=== PATIENT | female | born 1950 | race Caucasian/White ===

== ENCOUNTER 2017-02-07 07:08 | Day surgery (SDC) | payer BC ==
[2017-02-06 13:25] VITALS: BMI 75.8
[2017-02-07 08:28] LABS: #Eosinphils 0.1 thou/uL (0.0-0.7); #Lymphocytes 2.7 thou/uL (1.20-3.40); #Monocytes 0.9 thou/uL (0.11-0.59); #Neutrophils 4.7 thou/uL (1.40-6.50); %Basophils 0.5 % (0.0-1.0); %Eosinophils 0.9 % (0.0-10.0); %Lymphocytes 31.7 % (21.0-51.0); %Monocytes 11.2 % (0.0-10.0); Hematocrit 53.9 % (36.0-47.0); Red Blood Cell (RBC) Count 5.47 mill/uL (4.20-5.40); White Blood Cell (WBC) Count 8.5 thou/uL (4.8-10.8)
[2017-02-07 08:32] LABS: PTT 25.8 SEC (22.9-36.1)
[2017-02-07 08:33] LABS: Prothrombin Time 16.2 SEC (12.0-14.7)
[2017-02-07] MEDS ORDERED: Diprivan 40 ML ONE (08:36)
[2017-02-07 08:49] LABS: ALT (SGPT) 25 U/L (8-55); AST (SGOT) 31 U/L (5-34); Alkaline Phosphatase 67 U/L (40-150); Anion Gap 18 mmol/L (10-20); BUN (Urea Nitrogen) 25 mg/dL (9.8-20.1); Bilirubin, Total 1.4 mg/dL (0.2-1.2); Calc. Creatinine Clearance 168 mL/min (70-130); Carbon Dioxide 25 mmol/L (23-31); Chloride 101 mmol/L (98-107); Estimated GFR-MDRD 48; Globulin 3.8 g/dL (2.4-3.5); Protein, Total 7.8 g/dL (6.0-8.3)
[2017-02-07] MEDS ORDERED: Propofol 200 MG/20 ML VIAL ONE (09:26)
--- NOTE | 2017-02-07 21:07 | EKG ---
Test Reason : PREOP SUE Blood Pressure : / mmHG Vent. Rate : 088 BPM Atrial Rate : 394 BPM P-R Int : 000 ms QRS Dur : 170 ms QT Int : 398 ms P-R-T Axes : 000 -71 000 degrees QTc Int : 481 ms Atrial fibrillation with premature ventricular or aberrantly conducted complexes Right bundle branch block Left anterior fascicular block Bifascicular block T wave abnormality, consider lateral ischemia or digitalis effect Abnormal ECG When compared with ECG of 07-MAR-2013 12:38, Atrial fibrillation has replaced Sinus rhythm Left anterior fascicular block is now Present QT has lengthened Confirmed by GEORGE CANNON, DR. Pierre ([id number]) on 02/07/2017 9:07:27 PM Referred By: Salty ARREOLA Confirmed By:DR. Gabby VAZQUEZ MD
== END 2017-02-07 11:10 | disposition home or self-care (01) ==
LOC: CCL 07:08
PROVIDERS: ATTEND Internal Medicine
DX: I48.1 Persistent atrial fibrillation (principal); I10 Essential (primary) hypertension; E78.00 Pure hypercholesterolemia, unspecified; Z88.0 Allergy status to penicillin; Z88.7 Allergy status to serum and vaccine; Z88.8 Allergy status to other drugs, medicaments and biological substances
CPT/HCPCS: 80053; 84443; 85025; 85610; 85730; 92960; 93005; 93010; 93312; J2704

== ENCOUNTER 2017-05-05 09:35 | Outpatient (CLI) | payer OTHER | END 2017-05-05 09:36 | disposition home or self-care (01) | LOC: DTY/OP 09:35 | PROVIDERS: ATTEND Specialist | DX: Z01.818 Encounter for other preprocedural examination (principal); E66.01 Morbid (severe) obesity due to excess calories | CPT/HCPCS: 97802 ==

== ENCOUNTER 2017-08-09 10:20 | Outpatient (CLI) | payer MEDICARE, BC ==
--- NOTE | 2017-08-09 19:39 | HP ---
DATE OF SERVICE: 08/09/2017 HISTORY OF PRESENT ILLNESS: Ms. Syeda Hugo is a very pleasant 67-year-old who presents to the [facility] for evaluation of a wound of the right lateral chest. The patient states that the wound harrell s been present for approximately 3 months. She states that the wound is not as painful today as in t he past. She states that the wound improves intermittently, but has never healed completely. She st ates that she has utilized lidocaine steroid/antifungal preparation and Neosporin at various times fo r treatment of her right lateral chest wound. The patient reports a rash in the intertriginous regio n of her right and left groins. She states that this rash as opposed to the wound of her right later al chest resolves completely at times. PAST MEDICAL HISTORY: 1. Hypertension. 2. Arthritis. 3. History of diverticulitis. 4. Atrial fibrillation. PAST SURGICAL HISTORY: 1. Appendectomy. 2. D&C for postmenopausal bleeding. 3. Cholecystectomy. MEDICATIONS: 1. Lisinopril/HCTZ. 2. Aspirin 81 mg. 3. Fish oil. 4. Coenzyme Q10. 5. Multivitamin. 6. Amiodarone. 7. Metoprolol. 8. Xarelto. 9. Levothyroxine. ALLERGIES: PENICILLIN, TETANUS, STATIN. SOCIAL HISTORY: Negative for tobacco or ETOH use. FAMILY HISTORY: Significant for diabetes mellitus. The patient states that her mother, 2 brothers a nd 1 sister were all diagnosed with diabetes mellitus. Family history is also significant for traore ry artery disease. The patient states that her mother and father were both diagnosed with coronary a rtery disease. PHYSICAL EXAMINATION: VITAL SIGNS: Temperature 97.5, pulse 62, respirations 18, blood pressure 132/82. GENERAL: A 67-year-old female sitting on chair in examination room in no acute distress. HEENT: Normocephalic. NECK: No nuchal rigidity. CHEST: Clear to auscultation. A wound of the right lateral chest is present which measures approxim ately 1.9 x 0.9 cm. Granulation tissue is present within the wound margins. Nonviable tissue presen t within the wound margins was debrided with an excisional full-thickness debridement. No purulent d rainage is associated with the wound. No erythema of the skin surrounding the wound is present. No maceration of the skin of the periwound is noted. CARDIAC: Regular rate and rhythm. ABDOMEN: Soft. EXTREMITIES: No clubbing or cyanosis. NEUROLOGIC: Grossly nonfocal. ASSESSMENT AND PLAN: 1. Right lateral chest wound. The wound appears to be possibly secondary to shear stress. The ang ent states that it is possible that the wound may have developed from shear stress from her bra. Mark ssing changes of Arglaes powder followed by bordered gauze will be initiated today. These dressing c hanges are to be performed on a daily basis after cleansing and irrigation. No antibiotics will be p rescribed today based upon the appearance of the wound. I will see Ms. Hugo again in two weeks. Th e patient understands and is in agreement with the preceding treatment plan. 2. Hypertension. 3. Arthritis. 4. History of diverticulitis. 5. Atrial fibrillation.
== END 2017-08-09 10:21 | disposition home or self-care (01) ==
LOC: WCC 10:20
PROVIDERS: ATTEND Family Medicine
DX: S21.90XD Unspecified open wound of unspecified part of thorax, subsequent encounter (principal); I10 Essential (primary) hypertension; M19.90 Unspecified osteoarthritis, unspecified site; I48.91 Unspecified atrial fibrillation; Z87.19 Personal history of other diseases of the digestive system
CPT/HCPCS: 11042; 99202; G0463

== ENCOUNTER 2019-06-27 08:47 | Inpatient (IN) | payer MEDICARE, BC ==
[2019-06-27 09:13] LABS: #Lymphocytes 1.8 thou/uL (1.20-3.40); #Monocytes 1.6 thou/uL (0.11-0.59); %Basophils 0.1 % (0.0-1.0); %Eosinophils 0.3 % (0.0-10.0); %Lymphocytes 14.7 % (21.0-51.0); %Monocytes 12.5 % (0.0-10.0); %Neutrophils 72.4 % (42.0-75.0); Hemoglobin 17.3 g/dL (12.0-16.0); Mean Corpuscular HGB CONC 33.1 g/dL (32.0-36.0); Mean Corpuscular Volume 93.6 fL (78.0-98.0); Mean Platelet Volume 7.4 fL (7.4-10.4); Platelet Count 420 thou/uL (130-400); RBC Distribution Width 13.9 % (11.5-14.5); White Blood Cell (WBC) Count 12.5 thou/uL (4.8-10.8)
[2019-06-27] MEDS ORDERED: cefTRIAXone\\ROCEPHIN 2 GM VIAL ONE (09:25)
[2019-06-27 09:39] LABS: ALT (SGPT) 11 U/L (8-55); AST (SGOT) 29 U/L (5-34); Albumin 3.2 g/dL (3.4-4.8); Alkaline Phosphatase 91 U/L (40-110); Anion Gap 19 mmol/L (10-20); BUN (Urea Nitrogen) 36 mg/dL (9.8-20.1); Bilirubin, Total 1.9 mg/dL (0.2-1.2); Calc. Creatinine Clearance 0 mL/min (70-130); Calcium 10.6 mg/dL (7.8-10.44); Carbon Dioxide 20 mmol/L (23-31); Chloride 93 mmol/L (98-107); Estimated GFR-MDRD 52; Globulin 3.8 g/dL (2.4-3.5); Glucose 100 mg/dL (80-115); Lipase 15 U/L (8-78); Magnesium 2.3 mg/dL (1.6-2.6); Potassium 6.1 mmol/L (3.5-5.1); Sodium 126 mmol/L (136-145)
--- NOTE | 2019-06-27 10:10 | RAD ---
EXAM: XR Chest 1 View Portable PROVIDED CLINICAL HISTORY: Altered mental status COMPARISON: None FINDINGS: Evaluation is limited by patient body habitus. The cardiac silhouette appears enlarged. Left basilar pleural and/or parenchymal opacity is suspected. Pulmonary vascular congestion is noted. Right lung appears free of focal opacity. No evidence for pneumothorax. IMPRESSION: 1. Cardiomegaly. 2. Left basilar pleural and/or parenchymal opacity is suspected. Evaluation is limited by patient hab itus.
[2019-06-27 10:26] LABS: Bilirubin 1+ (Negative); Blood, Urine Trace (Negative); Clarity Turbid (Clear); Glucose, Urine (Dipstick) Normal (Negative); Leukocyte Negative Leu/uL (Negative); Nitrite Negative (Negative); Protein, Urine (Dipstick) 50 mg/dL (Neg-Trace); RBC/HPF 0-3 HPF (0-3); Squamous Epithelial 0-3 HPF (0-3); WBC/HPF 0-3 HPF (0-3)
[2019-06-27 10:43] LABS: Bacteria/HPF None Seen HPF (None Seen)
[2019-06-27] MEDS ORDERED: Piperacillin/Tazobactam 4.5 GM VIAL ONE (10:53)
[2019-06-27] MEDS ORDERED: Calcium Chloride 1 GM/10 ML Abboject SYRINGE ONE (10:54)
[2019-06-27] MEDS ORDERED: Sodium Bicarb 50 MEQ/50 ML VIAL ONE ×2 (10:54→10:58)
[2019-06-27] MEDS ORDERED: Dextrose 50% Abboject 50 ML SYRINGE ONE ×2 (10:54→13:25)
[2019-06-27] MEDS ORDERED: Insulin Regular 300 UNITS/3 ML VIAL ONE ×2 (10:54→13:25)
[2019-06-27] MEDS ORDERED: Diltiazem HCl 125 MG, Admixture Fee 1 EACH in Sodium Chloride 0.9% 100 ML IVPB SCH (12:00)
[2019-06-27] MEDS ORDERED: Diltiazem 125 MG/25 ML ONE (12:19)
[2019-06-27 12:51] LABS: Lactic Acid 5.6 mmol/L (0.5-2.2)
[2019-06-27 13:10] LABS: Anion Gap 20 mmol/L (10-20); BUN (Urea Nitrogen) 36 mg/dL (9.8-20.1); Calc. Creatinine Clearance 0 mL/min (70-130); Calcium 9.8 mg/dL (7.8-10.44); Carbon Dioxide 13 mmol/L (23-31); Chloride 103 mmol/L (98-107); Estimated GFR-MDRD 53; Glucose 80 mg/dL (80-115); Sodium 129 mmol/L (136-145)
[2019-06-27 13:16] LABS: Potassium 6.9 mmol/L (3.5-5.1)
[2019-06-27] MEDS ORDERED: Ondansetron PF 4 MG/2 ML Vial ONE (13:25)
[2019-06-27] MEDS ORDERED: Norepinephrine 8 MG in Dextrose 5% in Water 242 ML IVPB PRN (14:27)
[2019-06-27] MEDS ORDERED: Norepinephrine 4 MG/4 ML VIAL ONE (14:31)
--- NOTE | 2019-06-27 15:10 | RAD ---
CHEST 1 VIEW: Date: 06/27/2019 INDICATION: Central line placement. COMPARISON: Prior study dated 06/27/2019 at 0950 hours. FINDINGS: The patient is heavily rotated to the left, slightly limiting exam. There is a new right IJ central v enous catheter projecting in the region of the cavoatrial junction. Pacer pad overlies the lower cent ral chest. There is worsening opacity in the right lower lobe, suspicious for worsening pneumonia. Th ere is moderate left-sided pleural parenchymal which persists and which may reflect effusion with lef t basilar pneumonia. No definite pneumothorax is evident with limitations to exam. IMPRESSION: 1. Worsening right lower lobe air space opacity suspicious for worsening pneumonia. 2. Persistent moderate left pleural parenchymal opacity which may reflect a component of left lower lobe pneumonia and left-sided pleural effusion. 3. New right IJ central venous catheter. POS: BH
[2019-06-27] MEDS ORDERED: Amiodarone 450 MG, Admixture Fee 1 EACH in Dextrose 5% in Water 250 ML IVPB SCH (15:15)
[2019-06-27] MEDS ORDERED: Tamsulosin HCl 0.4 MG CAP PO SCH (16:15)
--- NOTE | 2019-06-27 16:24 | ULT ---
RENAL ULTRASOUND: 06/27/19 COMPARISON: CT abdomen/pelvis 07/10/12. HISTORY: Left sided abdominal pain and hematuria. TECHNIQUE: Multiplanar barnett scale and color Doppler images were obtained in a renal ultrasound. FINDINGS: This exam is limited secondary to patient's large body habitus. The kidneys are difficult to visuali ze. No obvious hydronephrosis is seen in either kidney. The kidneys measure 8.1 and 9.7 cm in length on the right and left, respectively. The bladder is not seen as it is decompressed by a Cevallos cathete r. In the left lower quadrant of the abdominal wall, there is a mass-like region. This measures 10.6 cm in greatest dimension and is consistent with the findings seen on prior CT. IMPRESSION: 1. No obvious renal abnormality. 2. Superficial mass in the subcutaneous tissues of the lower abdominal wall. POS: EAA
--- NOTE | 2019-06-27 17:08 | PDOC.HHP ---
Hospitalist HPI - History of Present Illness vomiting, blood in urine History of Present Illness: 69yo morbidly obese F w/ MHx of diverticulitis, abdominal hernia repair w/ mesh placement (approximately 10 years ago per patient), atrial fibrillation (on amiodarone and xarelto; 2 failed cardioversions in 2017), perforated diverticulitis (2012, treated medically), and chronic constipation presents for vomiting and hematuria for the past two weeks. Two weeks ago, patient developed vomiting that progressively worsened in frequency, associated with blood in her urine and abdominal pain, mostly in her left lower quadrant. She couldn't keep anything down including liquids, and became progressively drowsier so called EMS and was brought to the ED. On encounter, lying in bed and appears drowsy but no apparent distress. Denies chills, fever, headache, change in vision, neck stiffness, syncope, presyncope, chest pain, palpitations, pleuritic pain, cough, sputum production, diarrhea ( though endorses more frequent bowel movements), constipation, dysuria, increased urinary frequency (endorses some reduction in urine frequency), hematochezia, melena, hematemesis ED Course: In the ED, found to be atrial fibrillation with RVR, hyperkalemic, and hypotensive. Attempted diltiazem but remained hypotensive. Consulted Dr. Souza who started amiodarone, and started noreepinephrine. Repeat BMP showed K 6.9, so started her on treatment to reduce potassium levels. Was seen by cardiology who started on amiodarone drip and surgery to evaluate for surgical indication, which she did not have. She was admitted to the ICU. Hospitalist ROS - Review of Systems Constitutional: reports: malaise. denies: fever, chills, sweats, weakness Eyes: denies: vision change ENT: denies: ear pain, ear discharge, nose congestion, mouth swelling, throat pain, throat swelling Respiratory: denies: cough, dry, shortness of breath, hemoptysis, pleuritic pain , sputum, wheezing Cardiovascular: reports: edema. denies: chest pain, palpitations, orthopnea, paroxysmal noc. dyspnea, light headedness Gastrointestinal: reports: nausea, vomiting, abdominal pain. denies: diarrhea ( however, more frequent bowels (1-2 daily) than her usual), constipation, melena , hematochezia Genitourinary: reports: hematuria, retention. denies: dysuria, frequency, incontinence Musculoskeletal: denies: neck pain, shoulder pain, arm pain, back pain Hospitalist History - Past Medical History Cardiac: reports: AFIB, HTN. denies: [facility] Pulmonary: denies: asthma, CVA/TIA/stroke, COPD, heart attack Gastrointestinal: reports: Constipation, Diverticulosis. denies: GI bleed, Gastritis, Peptic ulcer disease Heme/Onc: denies: Anemia NOS Hepatobiliary: denies: Cirrhosis Rheumatologic: denies: Vasculitis ENT: denies: Sinusitis Renal/: reports: Hematuria. denies: Chronic renal insuff Endocrine: reports: Diabetes - Past Surgical History Other Surgical History: appendectomy, cholecystectomy, I&D for abnormal uterine bleeding - Family History Family History: reports: arthritis, diabetes mellitus - Social History Smoking Status: Never smoker Alcohol: reports: None Drugs: reports: none Living Situation: With Family Activity level: bed bound (for at least the past two years) - Exam General Appearance: awake alert General - other findings: mild ditress Eye: PERRL, anicteric sclera ENT: normocephalic atraumatic, dry oral mucosa Neck: no JVD Neck - other findings: R IJ central line in place (new) Heart: no murmur, no gallops, no rubs, irregular Heart - other findings: HR 150s-160s, atrial fibrillation on tele Respiratory: CTAB, no wheezes, no rales, no ronchi Gastrointestinal - other findings: diffusely tender, mostly left costophrenic, LLQ, and epigastric; bettencourt plac Extremities: 1+ LE edema Skin - other findings: intertriginous erythema and warmth left stomach, under breasts Psychiatric: normal affect, normal behavior, A&O x 3 Hospitalist Results - Labs Result Diagrams: 06/27/19 17:56 06/27/19 17:02 Lab results: WBC 12.5 thou/uL (4.8-10.8) H 06/27/19 09:02 Hgb 17.3 g/dL (12.0-16.0) H 06/27/19 09:02 Hct 52.4 % (36.0-47.0) H 06/27/19 09:02 MCV 93.6 fL (78.0-98.0) 06/27/19 09:02 Plt Count 420 thou/uL (130-400) H 06/27/19 09:02 Neutrophils % 72.4 % (42.0-75.0) 06/27/19 09:02 Sodium 129 mmol/L (136-145) L 06/27/19 12:46 Potassium 6.9 mmol/L (3.5-5.1) H* 06/27/19 12:46 Chloride 103 mmol/L (98-107) 06/27/19 12:46 Carbon Dioxide 13 mmol/L (23-31) L 06/27/19 12:46 BUN 36 mg/dL (9.8-20.1) H 06/27/19 12:46 Creatinine 1.03 mg/dL (0.6-1.1) 06/27/19 12:46 Glucose 80 mg/dL (80-115) 06/27/19 12:46 Lactic Acid 5.6 mmol/L (0.5-2.2) H* 06/27/19 12:10 Calcium 9.8 mg/dL (7.8-10.44) 06/27/19 12:46 Total Bilirubin 1.9 mg/dL (0.2-1.2) H 06/27/19 09:02 AST 29 U/L (5-34) 06/27/19 09:02 ALT 11 U/L (8-55) 06/27/19 09:02 Alkaline Phosphatase 91 U/L (40-110) 06/27/19 09:02 Serum Total Protein 7.0 g/dL (6.0-8.3) 06/27/19 09:02 Albumin 3.2 g/dL (3.4-4.8) L 06/27/19 09:02 Lipase 15 U/L (8-78) 06/27/19 09:02 Urine Ketones Negative mg/dL (Negative) 06/27/19 09:45 Urine Blood Trace (Negative) A 06/27/19 09:45 Urine Nitrite Negative (Negative) 06/27/19 09:45 Ur Leukocyte Esterase Negative Heather/uL (Negative) 06/27/19 09:45 Urine RBC 0-3 HPF (0-3) 06/27/19 09:45 Urine WBC 0-3 HPF (0-3) 06/27/19 09:45 Ur Squamous Epith Cells 0-3 HPF (0-3) 06/27/19 09:45 Urine Bacteria None Seen HPF (None Seen) 06/27/19 09:45 - EKG Interpretation EKG: atrial fibrillation with aberrant ventricular conduction Hospitalist H&P A/P - Problem (1) Septic shock Code(s): A41.9 - SEPSIS, UNSPECIFIED ORGANISM; R65.21 - SEVERE SEPSIS WITH SEPTIC SHOCK Status: Acute Assessment and Plan: qSOFA 2/3 possible etiologies - infected diverticulitis, perforated diverticulitis, pneumonia, embolic or thrombotic ischemic colitis (has been off anticoagulation for the past 2 weeks due to reduced oral intake), complicated UTI, infected abdominal mesh UA showing mild nonglemrulous sterile hematuria CXR showing lactate >5 patient currently SBP 100s on levophed CT cannot be done because of body habitus surgery evaluated and deemed patient to not be surgical candidate -NPO -vanc and zosyn 150cc NS w/ D5W repeat AXR in AM (2) Atrial fibrillation with RVR Code(s): I48.91 - UNSPECIFIED ATRIAL FIBRILLATION Status: Chronic Assessment and Plan: [persistent per EMR; 2 failed cardioversion attempts several years ago Tele showing atrial fibrillation with aberrant conduction -off anticoagulation for the past 2 weeks due to PO intolerance per cardiology, started on amiodarone drip started lovenox considering patient HgB high and has no signs of active infection, mild hematuria in UA possibly after bettencourt insertion; will request cardiology to advice regarding anticoagulation correct potassium (3) Acute hyperkalemia Code(s): E87.5 - HYPERKALEMIA Status: Acute Assessment and Plan: likely due to sepsis resulting in lactic acidosis received treatment in ED but hyperkalemia worsened most recently 6.9; received addiotional treatment -check bmp q4h -provide insulin/d5w, albuterol, bicarb -K should improve as acidosis improves; otherwise may require emergent hemodialysis (4) Intertriginous candidiasis Code(s): B37.2 - CANDIDIASIS OF SKIN AND NAIL Status: Acute Assessment and Plan: topical antifungal - Plan Plan: disposition/PPx -full code per patient; contacted family and updated them regarding patient's condition -GI PPx: no indication -DVT PPx: on lovenox for persistent atrial fibrillation attempted to reach both (surrogate) and daughter. left voice message for . It took 1 hour to care for this patient.
[2019-06-27] MEDS ORDERED: HumaLOG 300 UNITS/3 ML VIAL SC PRN (17:17)
[2019-06-27] MEDS ORDERED: CCU Electrolyte Replacement 1 EACH IVPB ONE (17:17)
[2019-06-27] MEDS ORDERED: Norepinephrine 8 MG/0.9% NS 250 ML IVPB PRN (17:17)
[2019-06-27] MEDS ORDERED: Dextrose 5% in Water 1,000 ML IV PRN (17:17)
[2019-06-27] MEDS ORDERED: Dextrose 50% Abboject 50 ML SYRINGE SLOW IVP PRN (17:17)
[2019-06-27] MEDS ORDERED: Potassium Phosphate 12 MMOL in Sodium Chloride 0.9% 250 ML 250 ML IV PRN (17:30)
[2019-06-27] MEDS ORDERED: PHOS-NAK 1 PKT PACK PO PRN ×2 (17:30)
[2019-06-27] MEDS ORDERED: Potassium Phosphate 9 MMOL in Sodium Chloride 0.9% 100 ML IVPB PRN (17:30)
[2019-06-27] MEDS ORDERED: Magnesium 2 GM/50 ML 2 GM in Premix Bag 1 BAG IVPB PRN (17:30)
[2019-06-27] MEDS ORDERED: Potassium Chloride 20 MEQ TAB PO PRN (17:30)
[2019-06-27] MEDS ORDERED: Magnesium Oxide 400 MG TAB PO PRN ×2 (17:30)
[2019-06-27] MEDS ORDERED: Potassium Chloride 40 MEQ in Sodium Chloride 0.9% 250 ML 250 ML IVPB PRN (17:30)
[2019-06-27] MEDS ORDERED: CCU ELECTROLYTE REPLACEMENT PROTOCOL FS PRN (17:30)
[2019-06-27] MEDS ORDERED: Potassium Chloride 40 MEQ in Premix Bag 1 BAG IVPB PRN (17:30)
[2019-06-27] MEDS ORDERED: Potassium Phosphate 15 MMOL in Sodium Chloride 0.9% 250 ML 250 ML IV PRN (17:30)
--- NOTE | 2019-06-27 17:34 | CON ---
DATE OF CONSULTATION: 06/27/2019 REASON FOR CONSULTATION: Atrial fibrillation with RVR. PRIMARY DRESSING ROOM ATTENDANT: Clif Luna DO. HISTORY OF PRESENT ILLNESS: Ms. Hugo is a very pleasant 69-year-old white female, who is mostly bed ridden, comes to the hospital for worsening nausea, vomiting, and diarrhea. For the last 2 weeks, she has had nausea, vomiting, diarrhea, unable to hold anything down. She states that things have done a little bit worse, so she decided to come in for evaluation. She was in atrial fibrillation with RVR. She has a history of atrial fibrillation, what appears to be chronic atrial fibrillation. She has been on anticoagulation for this. She was started on diltiazem drip, made her heart rate, which is in the 170s down to the 120s and 130s. However, she became hypotensive, so diltiazem was stopped and I was consulted. I asked them to start an amiodarone drip which she has been on for about 30 minutes now. Her heart rate remains in the 120s to 140s, but her blood pressure is back up to the low 100s. She was also started on Levophed for her hypotension. She was given lots of fluid as well. Ms. Hugo denies any shortness of breath. Her only complaint is the nausea, vomiting, and diarrhea she has been having. PAST MEDICAL HISTORY: 1. Atrial fibrillation which appears to be chronic. 2. Hypertension. 3. Osteoarthritis. 4. History of diverticulitis. 5. History of right lateral chest wound. SURGICAL HISTORY: 1. Hernia repair with mesh. 2. Cholecystectomy. 3. Appendectomy. SOCIAL HISTORY: No alcohol, tobacco, or drugs. Lives with daughter. OUTPATIENT MEDICATIONS: She has not been taking anything for the last 2 to 3 weeks. They will get medication list to have updated. ALLERGIES: 1. PENICILLIN. 2. STATIN DRUGS. 3. TETANUS TOXOID. REVIEW OF SYSTEMS: A 12-point review of systems was done and was all negative unless stated in the history of present illness. PHYSICAL EXAMINATION: VITAL SIGNS: Temperature 97.2, pulse 140, respiratory rate 22, saturating 98% on 2 L nasal cannula. GENERAL: Awake, alert, oriented x3, in no distress. HEENT: Normocephalic and atraumatic. NECK: Supple. LUNGS: Have reduced breath sounds. ABDOMEN: Prominent. CARDIOVASCULAR: Irregularly irregular heart rate in the 140s, difficult to hear any murmurs with distant heart sounds due to body habitus. EXTREMITIES: Trace edema. SKIN: Warm and dry. LABORATORY DATA: Laboratory work was reviewed. CBC with a white count of 12, hemoglobin of 17, hematocrit of 52, platelet count of 120. Chemistry; sodium was 126, up to 129 with IV fluids. Potassium was 6.1 on arrival up to 6.9. Anion gap of 20, BUN of 36, creatinine 1.03, GFR 53. Lactic acid is 5.6. TSH was 5.6, albumin of 3.2. UA with trace blood, 50 protein, turbid, 1+ bilirubin, 4+ urobilinogen, 2+ crystals, 11 to 20 hyaline cast. No bacteria. Chest x-ray, possible right lower lobe pneumonia, may be aspiration. ASSESSMENT: 1. Atrial fibrillation with rapid ventricular response. 2. Wide-complex QRS, possibly right bundle branch block, underlying versus QRS widening due to hyperkalemia. 3. Hyperkalemia, up to 6.8 now. Despite therapy in the ER. PLAN: 1. Aggressive reduction in potassium. She already received some doses of bicarbonate and calcium. We will ask that the potassium be repeated stat to make sure that this is not the reason why her QRS look so wide. 2. Continue amiodarone drip for now. We will do digoxin IV boluses if her heart rate remains too elevated. 3. Echocardiogram to be done. 4. To be admitted to the ICU. 5. Continue pressor support. 6. Thank you for letting us to participate in the care of your patient. We will follow. 45 minutes of critical care time. Job ID: [id number]
--- NOTE | 2019-06-27 17:37 | RAD ---
Radiograph abdomen one view: HISTORY: 69-year-old female with sepsis, left abdominal pain, and hematuria FINDINGS: There is a paucity of small bowel gas, almost complete absence. There is a small amount of gas in non distended splenic flexure and rectosigmoid colon. Moderate amount of colonic stool in the rectum. Surgical clips in upper abdomen. Patient is rotated to the left on all images. IMPRESSION: Almost complete lack of small bowel gas: Cannot evaluate small bowel.
[2019-06-27 17:43] LABS: Anion Gap 16 mmol/L (10-20); BUN (Urea Nitrogen) 37 mg/dL (9.8-20.1); Calc. Creatinine Clearance 0 mL/min (70-130); Carbon Dioxide 20 mmol/L (23-31); Chloride 100 mmol/L (98-107); Estimated GFR-MDRD 58; Glucose 75 mg/dL (80-115); Potassium 5.3 mmol/L (3.5-5.1); Sodium 131 mmol/L (136-145)
[2019-06-27 18:04] LABS: #Lymphocytes 1.6 thou/uL (1.20-3.40); #Monocytes 1.9 thou/uL (0.11-0.59); #Neutrophils 12.2 thou/uL (1.40-6.50); %Basophils 0.1 % (0.0-1.0); %Eosinophils 0.2 % (0.0-10.0); %Monocytes 12.3 % (0.0-10.0); %Neutrophils 77.4 % (42.0-75.0); Hemoglobin 16.8 g/dL (12.0-16.0); Mean Corpuscular HGB CONC 32.6 g/dL (32.0-36.0); Mean Corpuscular Hemoglobin 30.9 pg (27.0-31.0); Mean Corpuscular Volume 94.9 fL (78.0-98.0); Mean Platelet Volume 7.2 fL (7.4-10.4); Platelet Count 406 thou/uL (130-400); RBC Distribution Width 14.2 % (11.5-14.5); Red Blood Cell (RBC) Count 5.42 mill/uL (4.20-5.40); White Blood Cell (WBC) Count 15.8 thou/uL (4.8-10.8)
[2019-06-27] MEDS: Dextrose 5 % And 0.9 % NaCl 1,000 ML IV SCH (18:14)
[2019-06-27] MEDS ORDERED: Digoxin 0.5 MG/2 ML AMP ONE (18:35)
[2019-06-27] MEDS ORDERED: Digoxin 0.5 MG/2 ML AMP SLOW IVP SCH (18:45)
[2019-06-27] MEDS ORDERED: Miconazole 2% Cream 30 GM TUBE TOP SCH (21:00)
[2019-06-27 21:03] LABS: Hemoglobin 16.6 g/dL (12.0-16.0); Platelet Count 369 thou/uL (130-400)
[2019-06-27] MEDS ORDERED: Acetaminophen 650 MG Suppository PR PRN (21:04)
[2019-06-27] MEDS: Acetaminophen 325 MG TAB PO PRN (21:18)
[2019-06-27] MEDS: CLOTRIMAZOLE 2% FS SCH (21:20)
[2019-06-27] MEDS: Enoxaparin Sodium 100 MG/ML SYRINGE SC SCH (21:22)
[2019-06-27 21:25] LABS: Anion Gap 16 mmol/L (10-20); BUN (Urea Nitrogen) 38 mg/dL (9.8-20.1); Calc. Creatinine Clearance 155 mL/min (70-130); Carbon Dioxide 19 mmol/L (23-31); Chloride 99 mmol/L (98-107); Estimated GFR-MDRD 51; Glucose 102 mg/dL (80-115); Potassium 5.4 mmol/L (3.5-5.1); Sodium 129 mmol/L (136-145)
[2019-06-28] MEDS ORDERED: Digoxin 0.5 MG/2 ML AMP SLOW IVP PRN (00:08)
[2019-06-28] MEDS: Amiodarone 450 MG in Dextrose 5% in Water 250 ML IVPB SCH ×2 (00:27→15:19)
[2019-06-28] MEDS: Acetaminophen 325 MG TAB PO PRN ×6 (01:21→23:31)
[2019-06-28] MEDS: Dextrose 5 % And 0.9 % NaCl 1,000 ML IV SCH ×3 (01:22→15:52)
[2019-06-28 02:16] LABS: Anion Gap 15 mmol/L (10-20); BUN (Urea Nitrogen) 43 mg/dL (9.8-20.1); Calc. Creatinine Clearance 146 mL/min (70-130); Calcium 9.8 mg/dL (7.8-10.44); Carbon Dioxide 21 mmol/L (23-31); Chloride 101 mmol/L (98-107); Estimated GFR-MDRD 48; Glucose 98 mg/dL (80-115); Potassium 5.4 mmol/L (3.5-5.1); Sodium 132 mmol/L (136-145)
[2019-06-28] MEDS ORDERED: Sodium Chloride 0.9% 500 ML IV SCH (03:15)
[2019-06-28 05:29] LABS: #Lymphocytes 1.3 thou/uL (1.20-3.40); #Monocytes 1.7 thou/uL (0.11-0.59); #Neutrophils 10.2 thou/uL (1.40-6.50); %Basophils 0.4 % (0.0-1.0); %Eosinophils 0.2 % (0.0-10.0); %Monocytes 12.5 % (0.0-10.0); %Neutrophils 76.9 % (42.0-75.0); Hemoglobin 15.5 g/dL (12.0-16.0); Mean Corpuscular HGB CONC 32.8 g/dL (32.0-36.0); Mean Corpuscular Hemoglobin 30.9 pg (27.0-31.0); Mean Corpuscular Volume 94.3 fL (78.0-98.0); Mean Platelet Volume 7.1 fL (7.4-10.4); Platelet Count 337 thou/uL (130-400); RBC Distribution Width 13.9 % (11.5-14.5); Red Blood Cell (RBC) Count 5.01 mill/uL (4.20-5.40); White Blood Cell (WBC) Count 13.3 thou/uL (4.8-10.8)
[2019-06-28 05:49] LABS: Anion Gap 14 mmol/L (10-20); BUN (Urea Nitrogen) 38 mg/dL (9.8-20.1); Calc. Creatinine Clearance 145 mL/min (70-130); Calcium 9.6 mg/dL (7.8-10.44); Carbon Dioxide 20 mmol/L (23-31); Chloride 101 mmol/L (98-107); Estimated GFR-MDRD 48; Glucose 110 mg/dL (80-115); Potassium 5.2 mmol/L (3.5-5.1); Sodium 130 mmol/L (136-145)
[2019-06-28] MEDS: Norepinephrine 8 MG in Dextrose 5% in Water 242 ML IVPB PRN (06:34)
--- NOTE | 2019-06-28 07:32 | CON ---
DATE OF CONSULTATION: 06/27/2019 REQUESTING PHYSICIAN: Dr. Lavell Pickard. HISTORY OF PRESENT ILLNESS: This is a 69-year-old, 200 kg, morbidly obese woman , who presented to emergency department today with a history of malaise, intractable nausea, and nonbilious emesis over the last 2 weeks. This is accompanied by vague abdominal pain, which has been present for about a week and a half. She has been anorexic about the same, now due to fear of exacerbating nausea and emesis. Initially, her nausea was exacerbated by eating, but over the last 1 week, this has been unrelated to oral intake. She denies any upper respiratory symptoms including runny nose, sore throat, or coughs. She denies any fevers or chills. Last bowel movement was yesterday, during which time she also passed flatus. She endorses urinary frequency, urgency, and dysuria for approximately 2 weeks as well. PAST MEDICAL HISTORY: Significant for; 1. Morbid obesity. 2. Chronic atrial fibrillation. 3. Diverticulosis coli. 4. Essential hypertension. 5. Degenerative arthritic disease. 6. Hypothyroidism. PAST SURGICAL HISTORY: Pertinent for; 1. Appendectomy. 2. Cholecystectomy. 3. Hysteroscopy and D and C. 4. Ventral incisional herniorrhaphy, and subsequently, revision of ventral incisional herniorrhaphy with mesh. SOCIAL HISTORY: She denies any cigarette smoking, ethanol, or illicit drug abuse. She is currently disabled due to her weight. FAMILY HISTORY: Noncontributory for this patient's age. PREHOSPITAL MEDICATIONS: Includes; 1. Amiodarone 200 mg p.o. daily. 2. Aspirin 81 mg p.o. daily. 3. Fish oil unknown dosage. 4. Lisinopril unknown dosage. 5. Metoprolol dosage is unknown. 6. Xarelto 20 mg p.o. daily. 7. CoQ10 of 200 mg p.o. daily. ALLERGIES: PENICILLIN AND STATIN DRUGS. REVIEW OF SYSTEMS: Ten-point review of systems is essentially unremarkable except as stated in past medical history and chief complaint. PHYSICAL EXAMINATION: GENERAL: This reveals a 69-year-old morbidly developed woman, who is otherwise coherent, interactive, and appears stated age. The patient is alert and oriented x3, appears to be in no acute distress at the time of my evaluation. VITAL SIGNS: Her blood pressure was reportedly quite low on admission, so far she has received approximately 3 L of crystalloid by bolus infusion. Current vital signs include blood pressure 101/62, pulse is 180 and irregular, respiratory rate is 20, temperature 98 degrees Fahrenheit, oxygen saturation 95% on 3 L by nasal cannula oxygen. HEENT: Reveals normocephalic and atraumatic. Pupils are equal, round, reactive to light and accommodation. She has no scleral icterus present. Oral mucosa is pale and dry. She has no jugular venous distention noted. HEART: Reveals irregular rate and irregular rhythm. LUNGS: Clear to auscultation bilaterally. Breathing is regular and nonlabored. ABDOMEN: Soft, morbidly obese, with hard panniculus which weighted to the left side. She has a palpable, but nontender lump around her ventral incisional herniorrhaphy site. The patient reports that this has been present and unchanged since shortly after her last ventral incisional herniorrhaphy with mesh over 10 years ago. She has some tenderness to palpation in the left lower quadrant with no peritoneal signs on examination. Liver and spleen are nonpalpable below costal margins. NEUROLOGIC: Reveals no focal deficits present. LABORATORY AND DIAGNOSTIC DATA: Laboratory findings today includes a CBC with 12,500 white blood cells, hemoglobin and hematocrit are 17.3 and 52.4 respectively, platelet count is 420,000. Metabolic profile; sodium 126, potassium 6.1, chloride is 93, bicarb is 20, BUN is 36, creatinine is 1.06, glucose is 100, lactic acid 3.4, calcium is 10.6, magnesium is 2.3, total bilirubin is 1.9, AST and ALT are 29 and 11 respectively. Serum lipase is normal at 15. TSH is elevated at 5.65. Urinalysis was obtained and consistent with turbid appearing in clarity, there is trace microscopic hematuria, specific gravity noted at 1.030, microscopic proteinuria, and no bacteria seen. There are hyaline and granular casts present. An attempt to obtain a CT scan of the abdomen and pelvis was unsuccessful due to the patient's body habitus and weight. Chest x-ray, which was obtained today reveals bilateral lower lobe pulmonary infiltrates and perhaps [id number] left pleural effusion. IMPRESSIONS: 1. Vague left lower quadrant abdominal pain, likely musculoskeletal, secondary to intractable nausea and vomiting. 2. Probable acute left-sided panniculitis. 3. Acute hyperkalemia. 4. Acute hypovolemic shock, secondary to GI losses. 5. Bilateral lower lobe pneumonia, which may be the etiology of the nausea and emesis. 6. Acute lactic acidosis, secondary to hypovolemic shock. 7. Probable urinary tract infection. 8. [id number] atrial fibrillation with rapid ventricular response. 9. Acute hyponatremia. RECOMMENDATIONS: 1. Continue with fluid resuscitation and initiate appropriate antibiotic therapy directed to the community-acquired pneumonia as well as urinary tract infection. 2. Correct abnormal electrolytes including the hyperkalemia. There is no acute surgical indication for this patient at this time. General Surgery will follow along with serial physical examination and make further recommendations as necessary. Thank you again, Dr. Pickard, for allowing me the opportunity to participate in the care of this patient. Job ID: [id number] MTDD
--- NOTE | 2019-06-28 07:47 | RAD ---
EXAM: Portable chest PROVIDED CLINICAL HISTORY: Sepsis COMPARISON: 06/27/2019 FINDINGS: Significant interval change with respect to the prior examination is not apparent. IMPRESSION: As above.
[2019-06-28] MEDS: Tamsulosin HCl 0.4 MG CAP PO SCH (08:32)
[2019-06-28] MEDS: Enoxaparin Sodium 100 MG/ML SYRINGE SC SCH ×2 (08:33→20:01)
[2019-06-28] MEDS ORDERED: Prevnar 13-Val Conj/PF 0.5 ML SYRINGE IM ONE (09:00)
[2019-06-28 09:18] LABS: Lactic Acid 1.8 mmol/L (0.5-2.2)
[2019-06-28] MEDS: CLOTRIMAZOLE 2% FS SCH ×2 (09:42→20:01)
[2019-06-28] MEDS: Cefepime 1 GM in Sodium Chloride 0.9% 100 ML IVPB SCH ×2 (09:59→20:00)
--- NOTE | 2019-06-28 10:07 | PRG ---
DATE OF SERVICE: 06/28/2019 SUBJECTIVE: Ms. Hugo is a 69-year-old morbidly obese woman, BMI is 68.3. The patient was admitted yesterday with a 2-week history of nausea and vomiting, associated with vague abdominal pain. She was hypotensive yesterday, requiring large volume fluid resuscitation as well as a vasopressor support. She is awake and alert this morning. [place] Coma Scale is 15. She reports minimal abdominal pain. She has no nausea or vomiting overnight. Norepinephrine is currently at 8 mcg/minute, down from 15mcg the last time I saw her in the emergency department. Her urinary output has improved to 60 to 70 mL/h. OBJECTIVE: VITAL SIGNS: This morning include blood pressure 112/63, pulse is 108 and irregular, respiratory rate is 21, maximum temperature since admission 98.1 degrees Fahrenheit, and oxygen saturation currently 100% on 4 L by nasal cannula oxygen. ABDOMEN: Soft, remains morbidly obese, but nontender to palpation. She clearly has no peritoneal signs on examination. The left lower quadrant abdominal wall mass is subcutaneous in nature and is consistent with chronic panniculitis. LABORATORY FINDINGS: This morning includes a CBC with 13,300 white blood cells, hemoglobin and hematocrit 15.5 and 47.3 respectively, and platelet count is 337, 000. Metabolic profile: Sodium 130, potassium is 5.2 down from 6.9 yesterday, chloride is 101, bicarb is 20, BUN 38, creatinine is 1.14, and glucose is 110. Serum lactate is 1.8, down from 5.6 yesterday. BNP is 1093.7. IMPRESSIONS: 1. Resolving abdominal pain with no evidence of peritonitis. 2. Resolved lactic acidosis. 3. Resolving hyperkalemia. 4. Resolving acute hyponatremia. 5. Acute congestive heart failure with persistent atrial fibrillation with rapid ventricular response. RECOMMENDATIONS: There remains no acute surgical indication for this patient at this time. Medical management is deferred to the primary service. General Surgery will sign off at this time and be available to re-evaluate the patient on demand. Job ID: [id number] MTDD
--- NOTE | 2019-06-28 10:40 | CON ---
DATE OF CONSULTATION: HISTORY OF PRESENT ILLNESS: Syeda Hugo is a 69-year-old morbidly obese female, who was brought to the hospital with several day history of nausea, vomiting, abdominal pain and apparently blood in the urine. She is now in the ICU on an amiodarone drip and Levophed drip, though this morning, she is awake, alert, responsive, and denies any pain, discomfort, nausea, or vomiting. She has never smoked. Denies any prior history of TB, pneumonia, or bronchial asthma. She has severe limitation to activity because of obesity. PAST MEDICAL HISTORY: Hypertension, arthritis, hypothyroidism, morbid obesity, atrial fibrillation. PAST SURGICAL HISTORY: As outlined, hernia repair, ventral; appendix; cholecystectomy. HOME MEDICATIONS: Includes; 1. CoQ10 of 200. 2. Multivitamins. 3. Toprol-XL 25. 4. Lisinopril 20/12.5. 5. Aspirin. She is now started on; 1. Vancomycin. 2. Amiodarone. ALLERGIES: TO PENICILLIN. REVIEW OF SYSTEMS: Otherwise, ten-point negative. PHYSICAL EXAMINATION: GENERAL: On examination, she is awake, alert, responsive, sats 100% on 3 L, blood pressure 114/70, pulse rate 18. CHEST: Decreased breath sounds. No wheezing. CARDIAC: Normal S1 and S2. No gallops. ABDOMEN: No masses. LABORATORY DATA: Sodium 130, potassium 5.2, creatinine 1.14, BUN 38. White count 13,000. Cultures so far negative. Chest x-ray shows cardiomegaly, nonspecific bibasilar infiltrates. IMPRESSION: 1. Urinary tract infection. 2. Hypertension. 3. Sepsis. 4. Atrial fibrillation. 5. Morbid obesity. 6. Hypothyroidism. PLAN: At this stage, she looks like she is relatively stable. Once hypertension resolved, she can probably be transferred out of the ICU. This is a consultation note, 70 minutes, 50% direct patient care. Job ID: [id number]
--- NOTE | 2019-06-28 11:36 | PDOC.CPN ---
- Subjective Date: 06/28/19 Time: 11:33 Interval history: She is doing much better today. No chest pain no SOB. - Review of Systems General: denies: fever/chills, weight/appetite/sleep changes, night sweats, fatigue Respiratory: denies: cough, congestion, shortness of breath, exercise intolerance Cardiovascular: denies: chest pain, palpitation, edema, paroxysmal nocturnal dyspnea, orthopnea Gastrointestinal: reports: nausea, vomiting. denies: diarrhea, constipation, abd pain, GI bleeding Musculoskeletal: denies: pain, tenderness, stiffness, swelling, arthritis/ arthralgias Neurological: denies: numbness, syncope, seizure, weakness - Objective Allergies/Adverse Reactions: Allergies Allergy/AdvReac Type Severity Reaction Status Date / Time Penicillins Allergy Verified 06/13/19 13:56 [id number] Reductase Allergy Verified 06/13/19 13:56 Inhibitor tetanus toxoid, adsorbed Allergy Verified 06/13/19 13:56 Visit Medications: Current Medications Acetaminophen (Tylenol) 650 mg PO Q4H PRN PRN Reason: Headache/Fever/Mild Pain (1-3) Last Admin: 06/28/19 09:04 Dose: 650 mg Acetaminophen (Tylenol) 650 mg [place] Q4H PRN PRN Reason: Headache/Fever/Mild Pain (1-3) Albumin Human (Albumin 5%) 12.5 gm IVPB NOW [facility] Stop: 06/28/19 14:00 Last Admin: 06/28/19 09:59 Dose: 12.5 gm Clotrimazole (Clotrimazole 2% 3 Day Vag Cr) 0 gm FS BID [facility] Last Admin: 06/28/19 09:42 Dose: 1 applic Dextrose/Water (Dextrose 50%) 25 gm SLOW IVP PRN PRN PRN Reason: Hypoglycemia Enoxaparin Sodium (Lovenox) 180 mg SC 0900,2100 [facility] Last Admin: 06/28/19 08:33 Dose: 180 mg Glucagon (Glucagon) 1 mg IM PRN PRN PRN Reason: Hypoglycemia Dextrose/Sodium Chloride (D5 0.9% Ns) 1,000 mls @ 125 mls/hr IV .Q8H [facility] Last Admin: 06/28/19 10:27 Dose: Not Given Amiodarone HCl 450 mg/ (Dextrose/Water) 259 mls @ 0 mls/hr IVPB INF RAS; Protocol Last Admin: 06/28/19 00:27 Dose: 259 mls Dextrose/Water (D5w) 1,000 mls @ 0 mls/hr IV .Q0M PRN PRN Reason: Hypoglycemia Vancomycin HCl 2 gm/ Sodium (Chloride) 500 mls @ 250 mls/hr IVPB 1200,2359 [facility] Last Admin: 06/28/19 00:27 Dose: 500 mls Norepinephrine Bitartrate 8 mg (/ Dextrose/Water) 250 mls @ 0 mls/hr IVPB INF PRN; Protocol PRN Reason: TO MAINTAIN MAP > 65 Last Admin: 06/28/19 06:34 Dose: 250 mls Potassium Chloride 40 meq/ (Sodium Chloride) 270 mls @ 135 mls/hr IVPB ASDIR PRN PRN Reason: FOR SERUM K+ 2.5 - 3.5 Potassium Chloride 40 meq/ (Device) 100 mls @ 50 mls/hr IVPB ASDIR PRN PRN Reason: FOR SERUM K+ 2.5 - 3.5 Magnesium Sulfate 1 gm/ Sodium (Chloride) 102 mls @ 102 mls/hr IV PRN PRN PRN Reason: MAG LEVEL 1.4 - 2.0 Magnesium Sulfate 2 gm/ Device 50 mls @ 50 mls/hr IVPB ASDIR PRN PRN Reason: MAGNESIUM < 1.4 Potassium Phosphate 9 mmol/ (Sodium Chloride) 103 mls @ 25.75 mls/hr IVPB ASDIR PRN PRN Reason: Phosphate 1.0-1.8 Potassium Phosphate 12 mmol/ (Sodium Chloride) 254 mls @ 63.5 mls/hr IV ASDIR PRN PRN Reason: Serum phosphate 0.5-0.9 Potassium Phosphate 15 mmol/ (Sodium Chloride) 255 mls @ 63.75 mls/hr IV ASDIR PRN PRN Reason: Serum Phos < 0.5 Cefepime HCl 1 gm/ Sodium (Chloride) 100 mls @ 200 mls/hr IVPB Q12HR [facility] Last Admin: 06/28/19 09:59 Dose: 100 mls Insulin Human Lispro (Humalog) 0 units SC .MILD SLIDING SCALE PRN PRN Reason: Mild Correctional Scale Magnesium Oxide (Magnesium Oxide) 400 mg PO BIDPRN PRN PRN Reason: FOR SERUM MAG 1.4 - 2.0 Magnesium Oxide (Magnesium Oxide) 800 mg PO PRN PRN PRN Reason: FOR SERUM MAG < 1.4 Miscellaneous Medication (Phos-Nak) 1 pkt PO TIDPRN PRN PRN Reason: FOR PHOS LEVEL 1.0 - 1.8 Miscellaneous Medication (Phos-Nak) 2 pkt PO TIDPRN PRN PRN Reason: FOR PHOS LEVEL 0.5 - 1.0 Ccu Electrolyte (Replacement Protocol) 0 each FS PRN PRN PRN Reason: FOR ELECTROLYTE REPLACEMENT Potassium Chloride (K-Dur) 40 meq PO ASDIR PRN PRN Reason: FOR SERUM K+ 2.5 - 3.5 Potassium Chloride (Klor-Con) 40 meq PER TUBE ASDIR PRN PRN Reason: FOR SERUM K+ 2.5-3.5 Sodium Chloride (Flush - Normal Saline) 10 ml IVF Q12HR [facility] Last Admin: 06/28/19 08:33 Dose: 10 ml Sodium Chloride (Flush - Normal Saline) 10 ml IVF PRN PRN PRN Reason: Saline Flush Tamsulosin HCl (Flomax) 0.4 mg PO DAILY [facility] Last Admin: 06/28/19 08:32 Dose: 0.4 mg Vital Signs & Weight: Vital Signs Temp Pulse Pulse Ox 06/28/19 10:00 98.2 F 06/28/19 08:00 100 06/28/19 04:00 97.9 F 06/28/19 00:56 165 H 06/28/19 00:00 97.8 F Weight 423 lb 4.6 oz - Physical Exam General: alert & oriented x3 HEENT: mucus membranes moist Neck: midline trachea Cardiac: irregularly regular Lungs: other (Distant lung sounds anteriorly likely due to body habitus.) Neuro: grossly intact Abdomen: active bowel sounds Extremities: 1+ LE edema Skin: clear Musculoskeletal: no pain - Labs Result Diagrams: 06/28/19 05:10 06/28/19 05:10 - Telemetry Supraventricular conduction: atrial fibrillation - Assessment/Plan Assessment/Plan: 1. Afib RVR. Paroxysmal. 2. Possible RLL pneumonia 3. N/V 4. Abdominal pain likely from intractable NV PLAN: - Continue amiodarone gtt for rate control. - Still on levophed for BP but being weaned. - Urinary output improved with IV fluids. - No Lasix unless she becomes SOB. BP would not tolerate at this time and likely her BNP elevation is due to very rapid afib yesterday which is better controlled. - HR currently in the 80's to 120's. - Continue to wean levophed as needed. - Difficult to gauge her fluid level due to body habitus but yesterday I feel she was dry and had same amount if edema as today and her BP has responded to IV fluids and albumin. - She has had thyroid issues with amiodarone in the past. Hopefully she will convert once acute process improves and will stoip amiodarone. Cannot start BB or CCB now due to BP - Will scheduole PO dig. - Critical Care Time Critical care time (mins): 35
--- NOTE | 2019-06-28 21:24 | PDOC.HOSPP ---
- Subjective Encounter Date: 06/28/19 Encounter Time: 08:30 Subjective: no overnight events. This morning, more alert, heart rate better controlled, remains on levophed but being weaned. Has no complaints. - Objective Vital Signs & Weight: Vital Signs (12 hours) Temp Pulse Pulse BP BP Pulse Ox Pulse Ox 06/28/19 12:06 120 H 111 H 114/61 96/50 L 98 97 06/28/19 10:00 98.2 F Weight Admit Weight 423 lb 4.6 oz Weight 423 lb 4.6 oz Most Recent Monitor Data Heart Rate from ECG 100 NIBP 91/65 NIBP BP-Mean 73 Respiration from ECG 17 SpO2 99 I&O: 06/27/19 06/28/19 06/29/19 06:59 06:59 06:59 Intake Total 2747 2486 Output Total 285 632 Balance 2462 1854 Result Diagrams: 06/28/19 05:10 06/28/19 05:10 Additional Labs: Accuchecks 06/28/19 06/28/19 06/28/19 20:18 16:38 11:49 POC Glucose 108 103 115 H 06/28/19 06/28/19 06/28/19 07:44 04:20 01:19 POC Glucose 102 109 104 Hospitalist ROS - Review of Systems Constitutional: reports: malaise. denies: fever, chills, sweats, weakness Respiratory: denies: cough, dry, shortness of breath, hemoptysis Cardiovascular: reports: edema. denies: chest pain, palpitations, orthopnea, paroxysmal noc. dyspnea Gastrointestinal: reports: abdominal pain. denies: nausea, vomiting, diarrhea, constipation Genitourinary: reports: hematuria Skin: reports: rash - Medication Medications: Active Medications Generic Name Dose Route Start Last Admin Trade Name Freq PRN Reason Stop Dose Admin Acetaminophen 650 mg 06/27/19 21:04 06/28/19 19:53 Tylenol PO 650 mg Q4H PRN Administration Headache/Fever/Mild Pain (1-3) Clotrimazole 0 gm 06/27/19 21:00 06/28/19 20:01 Clotrimazole 2% 3 Day Vag Cr FS Not Given BID RAS Enoxaparin Sodium 180 mg 06/27/19 21:00 06/28/19 20:01 Lovenox SC 180 mg 0900,2100 RAS Administration Dextrose/Sodium Chloride 1,000 mls @ 125 mls/hr 06/27/19 17:17 06/28/19 15:52 D5 0.9% Ns IV 1,000 mls .Q8H RAS Administration Amiodarone HCl 450 mg/ 259 mls @ 0 mls/hr 06/27/19 17:17 06/28/19 15:19 Dextrose/Water IVPB 259 mls INF RAS Administration Protocol Per Protocol Vancomycin HCl 2 gm/ Sodium 500 mls @ 250 mls/hr 06/27/19 23:59 06/28/19 11: 40 Chloride IVPB 500 mls 1200,2359 RAS Administration Norepinephrine Bitartrate 8 mg 250 mls @ 0 mls/hr 06/27/19 17:30 06/28/19 06: 34 / Dextrose/Water IVPB 250 mls INF PRN Administration TO MAINTAIN MAP > 65 Protocol As Directed Cefepime HCl 1 gm/ Sodium 100 mls @ 200 mls/hr 06/28/19 09:00 06/28/19 20:00 Chloride IVPB 100 mls Q12HR RAS Administration Sodium Chloride 10 ml 06/27/19 21:00 06/28/19 20:25 Flush - Normal Saline IVF Not Given Q12HR RAS Tamsulosin HCl 0.4 mg 06/28/19 09:00 06/28/19 08:32 Flomax PO 0.4 mg DAILY RAS Administration - Exam General Appearance: NAD, awake alert Eye: PERRL, anicteric sclera Heart: irregular Heart - other findings: tachycardia, much improved Respiratory: CTAB, no wheezes, no rales, no ronchi Gastrointestinal: soft, non-distended, normal bowel sounds Gastrointestinal - other findings: LLQ tenderness, improved Extremities: 1+ LE edema Skin - other findings: intertriginous erythema Neurological: cranial nerve grossly intact, no new deficit Psychiatric: normal affect, normal behavior, A&O x 3 Hosp A/P (1) Septic shock Code(s): A41.9 - SEPSIS, UNSPECIFIED ORGANISM; R65.21 - SEVERE SEPSIS WITH SEPTIC SHOCK Status: Acute (2) Atrial fibrillation with RVR Code(s): I48.91 - UNSPECIFIED ATRIAL FIBRILLATION Status: Chronic (3) Acute hyperkalemia Code(s): E87.5 - HYPERKALEMIA Status: Acute (4) Intertriginous candidiasis Code(s): B37.2 - CANDIDIASIS OF SKIN AND NAIL Status: Acute - Plan -clinically improving -Sepsis: likely diverticulitis; continue vanc, zosyn (mild reaction in distant past) pending workup. If signs of allergy, stop and change to cefepime + metronidazole; wean levophed, once HD stable, may transfer to telemetry -Hyperkalemia - now mild, continue fluids -Atrial fibrillation w/ RVR - HR better controlled, defer to cardiology -azotemia: renal functional at baseline levels. continue fluids remaining management unchanged ELOS: 2-3 midnights
[2019-06-29] MEDS: Norepinephrine 8 MG in Dextrose 5% in Water 242 ML IVPB PRN (02:22)
[2019-06-29] MEDS: Dextrose 5 % And 0.9 % NaCl 1,000 ML IV SCH ×3 (02:44→19:04)
[2019-06-29] MEDS ORDERED: Digoxin 0.5 MG/2 ML AMP SLOW IVP SCH ×2 (04:15→07:45)
[2019-06-29 04:19] LABS: Anion Gap 13 mmol/L (10-20); BUN (Urea Nitrogen) 33 mg/dL (9.8-20.1); Calc. Creatinine Clearance 155 mL/min (70-130); Calcium 9.1 mg/dL (7.8-10.44); Carbon Dioxide 21 mmol/L (23-31); Chloride 104 mmol/L (98-107); Estimated GFR-MDRD 51; Glucose 117 mg/dL (80-115); Potassium 4.7 mmol/L (3.5-5.1); Sodium 133 mmol/L (136-145)
[2019-06-29] MEDS: Amiodarone 450 MG in Dextrose 5% in Water 250 ML IVPB SCH ×3 (05:06→19:05)
[2019-06-29] MEDS: Acetaminophen 325 MG TAB PO PRN ×2 (05:11→09:23)
--- NOTE | 2019-06-29 07:51 | PRG ---
DATE OF SERVICE: 06/29/2019 SUBJECTIVE: Ms. Hugo continues to have rapid heart rates. Early this morning, heart rate was 160, atrial fibrillation. Now, rates anywhere between 120 to 150. OBJECTIVE: LUNGS: Clear. CARDIAC: She is tachycardic. Heart sounds are distant due to the obesity. ABDOMEN: Obese. EXTREMITIES: No significant edema. ASSESSMENT: 1. Atrial fibrillation, rate still not well controlled. 2. Hyperkalemia, corrected. Potassium is 4.7. 3. Normal renal function. 4. Elevated BNP compatible with diastolic heart failure. BNP is 1093. PLAN: 1. Increase in IV amiodarone to 1 mg/minute. 2. Give additional digoxin doses. 3. Check digoxin level in the morning. 4. The patient is on enoxaparin. Job ID: [id number]
[2019-06-29] MEDS: Enoxaparin Sodium 100 MG/ML SYRINGE SC SCH ×2 (08:52→20:11)
[2019-06-29] MEDS: Cefepime 1 GM in Sodium Chloride 0.9% 100 ML IVPB SCH ×2 (08:52→20:11)
[2019-06-29] MEDS: Aspirin 81 mg Enteric Coated Tablet PO SCH (08:52)
[2019-06-29] MEDS: Tamsulosin HCl 0.4 MG CAP PO SCH (08:53)
[2019-06-29] MEDS: CLOTRIMAZOLE 2% FS SCH ×2 (08:53→20:22)
[2019-06-29] MEDS ORDERED: Digoxin 0.125 MG TAB PO SCH (09:00)
[2019-06-29] MEDS ORDERED: Digoxin 0.25 MG TAB PO SCH (09:00)
--- NOTE | 2019-06-29 10:09 | PRG ---
DATE OF SERVICE: 06/29/2019 SUBJECTIVE: The patient is not having complaints today. She remains on 15 mcg of Levophed for persistent hypotension. Her atrial fibrillation has become less well controlled, and she is now on amiodarone and was scheduled to receive digoxin. She has not had any vomiting, but still has nausea. She denies abdominal pain. Extensive workup to this point has been negative for an obvious etiology. She is complaining of worsening of her chronic constipation, and I have talked to her about the need to be on routine daily preventive therapy. OBJECTIVE: VITAL SIGNS: Blood pressure ranges from 88/56 to 107/73. Her oxygen saturation is 95%. GENERAL: She is in no distress and is awake and alert. She denies active pain. HEENT: Oropharynx shows no lee. NECK: She has no JVD. LUNGS: Clear. HEART: Irregular with underlying atrial fibrillation and rate ranging from 110 to 145. ABDOMEN: Morbidly obese. It is soft. There is no organomegaly. She has a Cevallos catheter in place. EXTREMITIES: She has 1+ pretibial edema. LABORATORY DATA: White count yesterday was 13,300. Chemistry today remarkable for sodium 133, potassium 4.7, BUN 33, and creatinine 1.1. Her BNP yesterday was elevated. Influenza A and B are negative. Urine cultures negative. Blood cultures are negative to date. IMPRESSION: 1. Sepsis syndrome, on empiric antibiotic therapy. She is requiring pressors and hopefully, we can wean this today. I suspect that her pressors are in part contributing to the atrial fibrillation with rapid response. 2. Atrial fibrillation with rapid response, on treatment regimen as a direction of Cardiology. 3. Morbid obesity. 4. Acute on chronic constipation. RECOMMENDATIONS: 1. Rate control per Cardiology. 2. Ongoing empiric antibiotics, pending further culture and sensitivity. 3. I have talked to her about the treatment for her chronic constipation. 4. 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 5. I would like to get her Cevallos catheter out as a potential source for new infection. 6. I would try to get her at least sitting on the side of the bed. Job ID: [id number] [facility]
[2019-06-29] MEDS: HYDROcodone/Acetaminophen 5/325 mg Tablet PO PRN ×2 (11:30→20:10)
--- NOTE | 2019-06-29 14:58 | PDOC.HOSPP ---
- Subjective Encounter Date: 06/29/19 Encounter Time: 11:10 Subjective: pt dont have nausea and denies abd pain and not passing gas. - Objective Vital Signs & Weight: Vital Signs (12 hours) Temp Pulse 06/29/19 08:53 135 H 06/29/19 04:10 135 H 06/29/19 04:00 97.6 F Weight Admit Weight 423 lb 4.6 oz Weight 433 lb 3.333 oz Most Recent Monitor Data Heart Rate from ECG 95 NIBP 87/63 NIBP BP-Mean 71 Respiration from ECG 22 SpO2 97 I&O: 06/28/19 06/29/19 06/30/19 06:59 06:59 06:59 Intake Total 2747 4826 Output Total 285 1102 195 Balance 2462 3724 -195 Result Diagrams: 06/28/19 05:10 06/29/19 03:50 Additional Labs: Accuchecks 06/28/19 06/28/19 20:18 16:38 POC Glucose 108 103 Hospitalist ROS - Medication Medications: Active Medications Generic Name Dose Route Start Last Admin Trade Name Freq PRN Reason Stop Dose Admin Acetaminophen 650 mg 06/27/19 21:04 06/29/19 09:23 Tylenol PO 650 mg Q4H PRN Administration Headache/Fever/Mild Pain (1-3) Hydrocodone Bitart/Acetaminophen 1 tab 06/29/19 10:47 06/29/19 11:30 [employer] 5/325 PO 1 tab Q6H PRN Administration Moderate to Severe Pain (6-10) Aspirin 81 mg 06/29/19 09:00 06/29/19 08:52 Ecotrin PO 81 mg QAM RAS Administration Clotrimazole 0 gm 06/27/19 21:00 06/29/19 08:53 Clotrimazole 2% 3 Day Vag Cr FS Not Given BID RAS Enoxaparin Sodium 180 mg 06/27/19 21:00 06/29/19 08:52 Lovenox SC 180 mg 0900,2100 RAS Administration Dextrose/Sodium Chloride 1,000 mls @ 125 mls/hr 06/27/19 17:17 06/29/19 09:54 D5 0.9% Ns IV Not Given .Q8H RAS Amiodarone HCl 450 mg/ 259 mls @ 0 mls/hr 06/27/19 17:17 06/29/19 12:49 Dextrose/Water IVPB 259 mls INF RAS Administration Protocol Per Protocol Vancomycin HCl 2 gm/ Sodium 500 mls @ 250 mls/hr 06/27/19 23:59 06/29/19 13: 02 Chloride IVPB 500 mls 1200,2359 RAS Administration Norepinephrine Bitartrate 8 mg 250 mls @ 0 mls/hr 06/27/19 17:30 06/29/19 02: 22 / Dextrose/Water IVPB 250 mls INF PRN Administration TO MAINTAIN MAP > 65 Protocol As Directed Cefepime HCl 1 gm/ Sodium 100 mls @ 200 mls/hr 06/28/19 09:00 06/29/19 08:52 Chloride IVPB 100 mls Q12HR RAS Administration Magnesium Oxide 400 mg 06/27/19 17:30 06/29/19 05:55 Magnesium Oxide PO 400 mg BIDPRN PRN Administration FOR SERUM MAG 1.4 - 2.0 Sodium Chloride 10 ml 06/27/19 21:00 06/29/19 08:54 Flush - Normal Saline IVF Not Given Q12HR RAS Tamsulosin HCl 0.4 mg 06/28/19 09:00 06/29/19 08:53 Flomax PO 0.4 mg DAILY RAS Administration - Exam General Appearance: NAD, awake alert Eye: PERRL ENT: normocephalic atraumatic Neck: supple Heart: RRR Respiratory: CTAB, normal chest expansion Gastrointestinal: soft, normal bowel sounds Hosp A/P - Plan 1) Septic shock -Sepsis: likely diverticulitis; continue vanc, zosyn (mild reaction in distant past) pending workup. If signs of allergy, stop and change to cefepime + metronidazole; wean levophed, once HD stable, may transfer to telemetry (2) Atrial fibrillation with RVR - HR better controlled, defer to cardiology - amio drip - added digoxin - dig level ordered---this am---->pending -TSH at 5.6, mildly high; not on levo--rept TSH in 2 to 3 wks (3) Acute hyperkalemia Code(s): E87.5 - HYPERKALEMIA Status: Acute (4) Intertriginous candidiasis Code(s): B37.2 - CANDIDIASIS OF SKIN AND NAIL Status: Acute Hyperkalemia -resolved SUSAN -: renal functional at baseline levels. continue fluids BPH? -on flomax
[2019-06-29] MEDS: Furosemide 20 MG/2 ML VIAL SLOW IVP SCH (20:11)
[2019-06-30] MEDS: Acetaminophen 325 MG TAB PO PRN ×4 (00:08→19:56)
[2019-06-30] MEDS: Amiodarone 450 MG in Dextrose 5% in Water 250 ML IVPB SCH ×2 (04:02→12:09)
[2019-06-30] MEDS: Dextrose 5 % And 0.9 % NaCl 1,000 ML IV SCH ×4 (04:02→14:03)
[2019-06-30] MEDS: Norepinephrine 8 MG in Dextrose 5% in Water 242 ML IVPB PRN ×2 (04:06→12:09)
[2019-06-30 04:35] LABS: #Eosinphils 0.2 thou/uL (0.0-0.7); #Lymphocytes 1.2 thou/uL (1.20-3.40); #Monocytes 1.3 thou/uL (0.11-0.59); #Neutrophils 7.5 thou/uL (1.40-6.50); %Basophils 0.3 % (0.0-1.0); %Eosinophils 1.6 % (0.0-10.0); %Monocytes 12.9 % (0.0-10.0); %Neutrophils 73.2 % (42.0-75.0); Hemoglobin 14.6 g/dL (12.0-16.0); Mean Corpuscular HGB CONC 31.7 g/dL (32.0-36.0); Mean Corpuscular Hemoglobin 30.7 pg (27.0-31.0); Mean Corpuscular Volume 96.8 fL (78.0-98.0); Mean Platelet Volume 7.2 fL (7.4-10.4); Platelet Count 341 thou/uL (130-400); RBC Distribution Width 14.1 % (11.5-14.5); Red Blood Cell (RBC) Count 4.77 mill/uL (4.20-5.40); White Blood Cell (WBC) Count 10.2 thou/uL (4.8-10.8)
[2019-06-30 04:56] LABS: Anion Gap 12 mmol/L (10-20); BUN (Urea Nitrogen) 36 mg/dL (9.8-20.1); Calc. Creatinine Clearance 166 mL/min (70-130); Calcium 8.9 mg/dL (7.8-10.44); Carbon Dioxide 20 mmol/L (23-31); Chloride 104 mmol/L (98-107); Estimated GFR-MDRD 54; Glucose 122 mg/dL (80-115); Potassium 4.7 mmol/L (3.5-5.1); Sodium 131 mmol/L (136-145)
[2019-06-30 05:01] LABS: Digoxin 2.15 ng/mL (0.8-2.0)
[2019-06-30] MEDS: Tamsulosin HCl 0.4 MG CAP PO SCH (08:17)
[2019-06-30] MEDS: Enoxaparin Sodium 100 MG/ML SYRINGE SC SCH ×2 (08:17→19:55)
[2019-06-30] MEDS: Aspirin 81 mg Enteric Coated Tablet PO SCH (08:17)
[2019-06-30] MEDS: Furosemide 20 MG/2 ML VIAL SLOW IVP SCH ×2 (08:18→19:55)
[2019-06-30] MEDS: Cefepime 1 GM in Sodium Chloride 0.9% 100 ML IVPB SCH ×2 (08:18→19:54)
[2019-06-30] MEDS: CLOTRIMAZOLE 2% FS SCH (08:20)
[2019-06-30] MEDS ORDERED: Digoxin 0.5 MG/2 ML AMP SLOW IVP SCH (09:00)
--- NOTE | 2019-06-30 09:07 | PRG ---
DATE OF SERVICE: 06/30/2019 SUBJECTIVE: Ms. Hugo feels better today. OBJECTIVE: VITAL SIGNS: Her heart rate is improved, is 80 to 90, it showed atrial fibrillation. LUNGS: Clear. CARDIAC: Irregularly irregular. ABDOMEN: Very obese. EXTREMITIES: No clubbing or cyanosis. They are all warm and dry. The blood pressure cuff is getting 88 systolic, but she has good radial pulses. I think her actual blood pressure is probably higher. Her arms are very large; therefore, her cuff is on her forearm, not her upper arm. The cuff does not fit her upper arm due to the level of obesity. ASSESSMENT: 1. Atrial fibrillation with improved rate control. 2. Digoxin level is elevated at 2.15. PLAN: 1. Hold digoxin for now. 2. Reduce amiodarone dose. 3. Try to wean Levophed slowly. 4. Dr. Souza will return tomorrow. Job ID: [id number]
[2019-06-30] MEDS: HYDROcodone/Acetaminophen 5/325 mg Tablet PO PRN ×2 (10:15→21:17)
--- NOTE | 2019-06-30 11:31 | PRG ---
DATE OF SERVICE: 06/30/2019 SUBJECTIVE: Ms. Hugo has complaints of back pain today. She attributes this to the bed, but also to vaginal bleeding. She states that in the past, she has had vaginal bleeding associated with the use of clotrimazole for her skin yeast. I suspect that the clotrimazole has a drug interaction with her anticoagulated therapy making her more anticoagulated. We will try to talk to the pharmacy to see if an alternative agent in a different class might have less side effect. She continues to be on pressors. Her amiodarone dose has been reduced. Her digoxin level has been discontinued. [place], which was quite high yesterday and is controlled today. OBJECTIVE: VITAL SIGNS: Blood pressure today 104/65, heart rate 95, saturation 99%. GENERAL: She is awake and alert. She denies shortness of breath or cough. LYMPHATIC: She has no adenopathy. LUNGS: Bronchial breath sounds, but no wheezing or rales. HEART: Irregular. I do not hear a murmur. ABDOMEN: Morbidly obese without organomegaly. There is no mass. There is no guarding or tenderness. EXTREMITIES: Show 1 to 2+ pretibial edema. LABORATORY DATA: White count today is 10,200, hemoglobin 14.6, platelet count 341,000. Chemistries include sodium 131, potassium 4.7, CO2 is 20, BUN 36, creatinine 1.02. Her digoxin level was very trivially elevated at 2.1. Echocardiogram done 2 days ago shows ejection fraction of approximately 40% to 50%. She had evidence of pulmonary hypertension with RVSP approximately 50. IMPRESSION: 1. Hypotension, presumed secondary to sepsis of unclear etiology. 2. Atrial fibrillation, now back with rate control. 3. Pulmonary hypertension, moderate, with right ventricular systolic pressure 50. PLAN: We will continue attempts to wean her pressors. Her global prognosis is challenge due to her functional immobility. I do not think that she is a good candidate for treatment of her pulmonary hypertension as manifested by her issues with compliance associated with her anticoagulant regimen. I do not know if she has formally been evaluated for sleep apnea, but that would be a consideration as well. Job ID: [id number]
[2019-06-30 11:53] LABS: Vancomycin, Trough 49.8 ug/mL
--- NOTE | 2019-06-30 14:02 | PDOC.HOSPP ---
- Subjective Encounter Date: 06/30/19 Encounter Time: 10:10 Subjective: still on levophed at 13 and stopped digoxin as digoxin level high. vanc trough also high. nl Cr. pt stable. - Objective Vital Signs & Weight: Vital Signs (12 hours) Temp Pulse Pulse Pulse BP BP Pulse Ox 06/30/19 12:00 98.1 F 06/30/19 08:52 109 H 125 H 96/63 103/62 06/30/19 08:19 135 H 06/30/19 08:00 97.9 F 99 06/30/19 04:00 97.7 F Pulse Ox Pulse Ox 06/30/19 12:00 06/30/19 08:52 98 93 L 06/30/19 08:19 06/30/19 08:00 06/30/19 04:00 Weight Admit Weight 423 lb 4.6 oz Weight 433 lb 3.333 oz Most Recent Monitor Data Heart Rate from ECG 104 NIBP 109/69 NIBP BP-Mean 82 Respiration from ECG 29 SpO2 100 I&O: 06/29/19 06/30/19 07/01/19 06:59 06:59 06:59 Intake Total 4826 5128 100 Output Total 1102 645 Balance 3724 4483 100 Result Diagrams: 06/30/19 04:15 06/30/19 04:15 Additional Labs: Accuchecks 06/29/19 06/29/19 21:20 17:03 POC Glucose 116 H 109 Hospitalist ROS - Medication Medications: Active Medications Generic Name Dose Route Start Last Admin Trade Name Freq PRN Reason Stop Dose Admin Acetaminophen 650 mg 06/27/19 21:04 06/30/19 12:41 Tylenol PO 650 mg Q4H PRN Administration Headache/Fever/Mild Pain (1-3) Hydrocodone Bitart/Acetaminophen 1 tab 06/29/19 10:47 06/30/19 10:15 [place] 5/325 PO 1 tab Q6H PRN Administration Moderate to Severe Pain (6-10) Aspirin 81 mg 06/29/19 09:00 06/30/19 08:17 Ecotrin PO 81 mg QAM RAS Administration Enoxaparin Sodium 180 mg 06/27/19 21:00 06/30/19 08:17 Lovenox SC 180 mg 0900,2100 RAS Administration Furosemide 20 mg 06/29/19 21:00 06/30/19 08:18 Lasix SLOW IVP 20 mg BID RAS Administration Dextrose/Sodium Chloride 1,000 mls @ 125 mls/hr 06/27/19 17:17 06/30/19 08:24 D5 0.9% Ns IV Not Given .Q8H RAS Norepinephrine Bitartrate 8 mg 250 mls @ 0 mls/hr 06/27/19 17:30 06/30/19 12: 09 / Dextrose/Water IVPB 250 mls INF PRN Administration TO MAINTAIN MAP > 65 Protocol As Directed Cefepime HCl 1 gm/ Sodium 100 mls @ 200 mls/hr 06/28/19 09:00 06/30/19 08:18 Chloride IVPB 100 mls Q12HR RAS Administration Amiodarone HCl 450 mg/ 259 mls @ 17.26 mls/hr 06/30/19 08:48 06/30/19 12:09 Dextrose/Water IVPB 259 mls INF RAS Administration Protocol 0.5 MG/MIN Magnesium Oxide 400 mg 06/27/19 17:30 06/29/19 05:55 Magnesium Oxide PO 400 mg BIDPRN PRN Administration FOR SERUM MAG 1.4 - 2.0 Sodium Chloride 10 ml 06/27/19 21:00 06/30/19 08:23 Flush - Normal Saline IVF 10 ml Q12HR RAS Administration Tamsulosin HCl 0.4 mg 06/28/19 09:00 06/30/19 08:17 Flomax PO 0.4 mg DAILY RAS Administration - Exam General Appearance: NAD, awake alert Eye: PERRL ENT: normocephalic atraumatic Neck: supple Heart: RRR Respiratory: CTAB, normal chest expansion Gastrointestinal: soft, normal bowel sounds Neurological: no focal deficits Hosp A/P - Plan 1) Septic shock -Sepsis: likely diverticulitis; continue vanc, zosyn (mild reaction in distant past) pending workup. - on levophed still at 13ucg --vans stopped as levels quite high -- cw cefepime, - not sure, which one is we are treating -- Diverticultiis? or pancultis no CT done, abd xray -- inconclusive -- will fw on the CT result and infla'y markers -adding flagyl empiric, will deescalate once above results available (2) Atrial fibrillation with RVR - HR better controlled, defer to cardiology - amio drip - dig level ordered---quite high -- stopped digoxin/5th -TSH at 5.6, mildly high; not on levo--rept TSH in 2 to 3 wks (3) Acute hyperkalemia -resolved (4) Intertriginous candidiasis Code(s): B37.2 - CANDIDIASIS OF SKIN AND NAIL Status: Acute -hx of ?vaginal bleed w.. clotrimazole? --trial of nystatin powder. SUSAN -: renal functional at baseline levels. stopped digoxin as digoxin level high. vanc trough also high. nl Cr.
[2019-06-30] MEDS: Miconazole 2% Vaginal Cream 45 GM TUBE TOP SCH (19:55)
--- NOTE | 2019-06-30 19:55 | PDOC.EVN ---
Event Note - Event Note Event Note: Notified by RN, patient with bettencourt out earlier today. Has had debbie hematuria via purewick. Worsening throughout the day. Unsure if vaginal bleeding vs. hematuria. Dr. Freire has advised re-placing bettencourt, if urine clear, then likely vaginal bleeding. If debbie hematuria via bettencourt, will need urology consult. Will check H/H, vitals are unchanged.
[2019-06-30 20:17] LABS: Hemoglobin 14.4 g/dL (12.0-16.0)
[2019-06-30] MEDS: metroNIDAZOLE 500 MG in Premix Bag 1 BAG IVPB SCH (21:18)
[2019-07-01] MEDS: Dextrose 5 % And 0.9 % NaCl 1,000 ML IV SCH ×3 (00:23→18:28)
[2019-07-01] MEDS: HYDROcodone/Acetaminophen 5/325 mg Tablet PO PRN ×2 (03:16→15:26)
[2019-07-01 05:25] LABS: Hemoglobin 13.3 g/dL (12.0-16.0)
[2019-07-01 05:39] LABS: Digoxin 1.37 ng/mL (0.8-2.0)
[2019-07-01] MEDS: metroNIDAZOLE 500 MG in Premix Bag 1 BAG IVPB SCH ×3 (05:57→21:36)
[2019-07-01] MEDS: Norepinephrine 8 MG in Dextrose 5% in Water 242 ML IVPB PRN (07:13)
[2019-07-01] MEDS: Amiodarone 450 MG in Dextrose 5% in Water 250 ML IVPB SCH ×2 (07:13→23:50)
[2019-07-01] MEDS: Aspirin 81 mg Enteric Coated Tablet PO SCH (08:41)
[2019-07-01] MEDS: Cefepime 1 GM in Sodium Chloride 0.9% 100 ML IVPB SCH ×2 (08:41→20:40)
[2019-07-01] MEDS: Furosemide 20 MG/2 ML VIAL SLOW IVP SCH ×2 (08:41→20:40)
[2019-07-01] MEDS: Enoxaparin Sodium 100 MG/ML SYRINGE SC SCH ×2 (08:41→20:40)
[2019-07-01] MEDS: Tamsulosin HCl 0.4 MG CAP PO SCH (08:42)
--- NOTE | 2019-07-01 09:25 | PRG ---
DATE OF SERVICE: 07/01/2019 SUBJECTIVE: This morning, she remains in the ICU, still relatively hypotensive. OBJECTIVE: VITAL SIGNS: Blood pressure 90/60, pulse 80, respiratory rate 18, and sats 97%. GENERAL: She is awake, alert, and responsive. CHEST: No wheezing. CARDIAC: Normal S1 and S2. No gallops. ABDOMEN: No masses. LABORATORY DATA: UTI, all cultures negative. ASSESSMENT: Abdominal pain, morbid obesity, supraventricular tachycardia. PLAN: 1. We will continue antibiotics for the time being. PT, supportive care. 2. Hopefully, once blood pressure is improved, she can be transferred out of the ICU. Job ID: [id number]
[2019-07-01 09:29] LABS: #Eosinphils 0.1 thou/uL (0.0-0.7); #Monocytes 1.3 thou/uL (0.11-0.59); #Neutrophils 7.3 thou/uL (1.40-6.50); %Basophils 0.4 % (0.0-1.0); %Eosinophils 1.4 % (0.0-10.0); %Monocytes 13.6 % (0.0-10.0); %Neutrophils 74.7 % (42.0-75.0); Hemoglobin 13.2 g/dL (12.0-16.0); Mean Corpuscular HGB CONC 31.2 g/dL (32.0-36.0); Mean Corpuscular Hemoglobin 30.4 pg (27.0-31.0); Mean Corpuscular Volume 97.4 fL (78.0-98.0); Mean Platelet Volume 7.1 fL (7.4-10.4); Platelet Count 316 thou/uL (130-400); RBC Distribution Width 14.3 % (11.5-14.5); Red Blood Cell (RBC) Count 4.35 mill/uL (4.20-5.40); White Blood Cell (WBC) Count 9.8 thou/uL (4.8-10.8)
[2019-07-01 09:44] LABS: Anion Gap 9 mmol/L (10-20); BUN (Urea Nitrogen) 48 mg/dL (9.8-20.1); Calc. Creatinine Clearance 184 mL/min (70-130); Calcium 8.4 mg/dL (7.8-10.44); Carbon Dioxide 22 mmol/L (23-31); Chloride 105 mmol/L (98-107); Estimated GFR-MDRD 59; Glucose 97 mg/dL (80-115); Potassium 5.1 mmol/L (3.5-5.1); Sodium 131 mmol/L (136-145)
--- NOTE | 2019-07-01 10:57 | PDOC.CPN ---
- Subjective Date: 07/01/19 Time: 10:56 Interval history: Her breathing is still ok but seems more volume up today. Afib reasonable rate control. - Review of Systems General: denies: fever/chills, weight/appetite/sleep changes, night sweats, fatigue Respiratory: reports: shortness of breath, exercise intolerance. denies: cough , congestion Cardiovascular: reports: orthopnea Gastrointestinal: denies: nausea, vomiting, diarrhea, constipation, abd pain, GI bleeding Musculoskeletal: denies: pain, tenderness, stiffness, swelling, arthritis/ arthralgias Neurological: denies: numbness, syncope, seizure, weakness - Objective Allergies/Adverse Reactions: Allergies Allergy/AdvReac Type Severity Reaction Status Date / Time Penicillins Allergy Verified 06/13/19 13:56 [id number] Reductase Allergy Verified 06/13/19 13:56 Inhibitor tetanus toxoid, adsorbed Allergy Verified 06/13/19 13:56 Visit Medications: Current Medications Acetaminophen (Tylenol) 650 mg PO Q4H PRN PRN Reason: Headache/Fever/Mild Pain (1-3) Last Admin: 06/30/19 19:56 Dose: 650 mg Acetaminophen (Tylenol) 650 mg RI Q4H PRN PRN Reason: Headache/Fever/Mild Pain (1-3) Hydrocodone Bitart/Acetaminophen ([place] 5/325) 1 tab PO Q6H PRN PRN Reason: Moderate to Severe Pain (6-10) Last Admin: 07/01/19 03:16 Dose: 1 tab Aspirin (Ecotrin) 81 mg PO QAM [facility] Last Admin: 07/01/19 08:41 Dose: 81 mg Dextrose/Water (Dextrose 50%) 25 gm SLOW IVP PRN PRN PRN Reason: Hypoglycemia Enoxaparin Sodium (Lovenox) 180 mg SC 0900,2100 [facility] Last Admin: 07/01/19 08:41 Dose: 180 mg Furosemide (Lasix) 20 mg SLOW IVP BID [facility] Last Admin: 07/01/19 08:41 Dose: 20 mg Glucagon (Glucagon) 1 mg IM PRN PRN PRN Reason: Hypoglycemia Dextrose/Sodium Chloride (D5 0.9% Ns) 1,000 mls @ 125 mls/hr IV .Q8H [facility] Last Admin: 07/01/19 00:23 Dose: 1,000 mls Dextrose/Water (D5w) 1,000 mls @ 0 mls/hr IV .Q0M PRN PRN Reason: Hypoglycemia Norepinephrine Bitartrate 8 mg (/ Dextrose/Water) 250 mls @ 0 mls/hr IVPB INF PRN; Protocol PRN Reason: TO MAINTAIN MAP > 65 Last Admin: 07/01/19 07:13 Dose: 250 mls Potassium Chloride 40 meq/ (Sodium Chloride) 270 mls @ 135 mls/hr IVPB ASDIR PRN PRN Reason: FOR SERUM K+ 2.5 - 3.5 Potassium Chloride 40 meq/ (Device) 100 mls @ 50 mls/hr IVPB ASDIR PRN PRN Reason: FOR SERUM K+ 2.5 - 3.5 Magnesium Sulfate 1 gm/ Sodium (Chloride) 102 mls @ 102 mls/hr IV PRN PRN PRN Reason: MAG LEVEL 1.4 - 2.0 Magnesium Sulfate 2 gm/ Device 50 mls @ 50 mls/hr IVPB ASDIR PRN PRN Reason: MAGNESIUM < 1.4 Potassium Phosphate 9 mmol/ (Sodium Chloride) 103 mls @ 25.75 mls/hr IVPB ASDIR PRN PRN Reason: Phosphate 1.0-1.8 Potassium Phosphate 12 mmol/ (Sodium Chloride) 254 mls @ 63.5 mls/hr IV ASDIR PRN PRN Reason: Serum phosphate 0.5-0.9 Potassium Phosphate 15 mmol/ (Sodium Chloride) 255 mls @ 63.75 mls/hr IV ASDIR PRN PRN Reason: Serum Phos < 0.5 Cefepime HCl 1 gm/ Sodium (Chloride) 100 mls @ 200 mls/hr IVPB Q12HR [facility] Last Admin: 07/01/19 08:41 Dose: 100 mls Amiodarone HCl 450 mg/ (Dextrose/Water) 259 mls @ 17.26 mls/hr IVPB INF RAS; Protocol Last Admin: 07/01/19 07:13 Dose: 259 mls Metronidazole 500 mg/ Device 100 mls @ 100 mls/hr IVPB Q8HR [facility] Last Admin: 07/01/19 05:57 Dose: 100 mls Insulin Human Lispro (Humalog) 0 units SC .MILD SLIDING SCALE PRN PRN Reason: Mild Correctional Scale Magnesium Oxide (Magnesium Oxide) 400 mg PO BIDPRN PRN PRN Reason: FOR SERUM MAG 1.4 - 2.0 Last Admin: 06/29/19 05:55 Dose: 400 mg Magnesium Oxide (Magnesium Oxide) 800 mg PO PRN PRN PRN Reason: FOR SERUM MAG < 1.4 Miconazole Nitrate (Monistat 7 Vaginal 2% Cream) 0 gm TOP HS [facility] Last Admin: 06/30/19 19:55 Dose: 1 applic Miscellaneous Medication (Phos-Nak) 1 pkt PO TIDPRN PRN PRN Reason: FOR PHOS LEVEL 1.0 - 1.8 Miscellaneous Medication (Phos-Nak) 2 pkt PO TIDPRN PRN PRN Reason: FOR PHOS LEVEL 0.5 - 1.0 Ccu Electrolyte (Replacement Protocol) 0 each FS PRN PRN PRN Reason: FOR ELECTROLYTE REPLACEMENT Potassium Chloride (K-Dur) 40 meq PO ASDIR PRN PRN Reason: FOR SERUM K+ 2.5 - 3.5 Potassium Chloride (Klor-Con) 40 meq PER TUBE ASDIR PRN PRN Reason: FOR SERUM K+ 2.5-3.5 Sodium Chloride (Flush - Normal Saline) 10 ml IVF Q12HR [facility] Last Admin: 07/01/19 08:42 Dose: Not Given Sodium Chloride (Flush - Normal Saline) 10 ml IVF PRN PRN PRN Reason: Saline Flush Tamsulosin HCl (Flomax) 0.4 mg PO DAILY [facility] Last Admin: 07/01/19 08:42 Dose: 0.4 mg Vital Signs & Weight: Vital Signs Temp 07/01/19 04:00 98.5 F 07/01/19 00:00 98.0 F Admit Weight 423 lb 4.6 oz Weight 442 lb 6.3 oz - Physical Exam General: alert & oriented x3 HEENT: mucus membranes moist Neck: supple neck Cardiac: irregularly regular Lungs: decreased breath sounds Neuro: grossly intact Abdomen: active bowel sounds Extremities: 1+ LE edema Skin: clear Musculoskeletal: no pain - Labs Result Diagrams: 07/01/19 07:58 07/01/19 07:58 - Telemetry Supraventricular conduction: atrial fibrillation - Assessment/Plan Assessment/Plan: 1. Afib RVR. Paroxysmal. Lenient rate control. 2. Possible RLL pneumonia 3. N/V 4. Abdominal pain likely from intractable NV PLAN: - Continue amiodarone gtt for rate control. - Continue diogoxin. - Agree with IV lasix - Still needing levophed for hypotension. - Lovenox full dose for stroke prophylaxis. - Critical Care Time Critical care time (mins): 30
[2019-07-01] MEDS ORDERED: Cyclobenzaprine 10 MG TAB PO PRN (11:14)
--- NOTE | 2019-07-01 12:48 | ULT ---
PELVIC ULTRASOUND: Transabdominal and endovaginal ultrasound of pelvis performed. INDICATION: Vaginal bleeding. FINDINGS: Exam is extremely limited due to body habitus. Uterus and ovaries are not identified. Cervix ix par tially imaged. IMPRESSION: Nondiagnostic exam. Uterus and ovaries are not identified. POS: [facility]
--- NOTE | 2019-07-01 13:40 | PDOC.HOSPP ---
- Subjective Encounter Date: 07/01/19 Encounter Time: 09:20 Subjective: urine in the bettencourt looks clear, likely vaginal bleed, pt states intermittent pelvic discomfort, US non-diagnostic. - Objective Vital Signs & Weight: Vital Signs (12 hours) Temp 07/01/19 04:00 98.5 F Weight Admit Weight 423 lb 4.6 oz Weight 442 lb 6.3 oz Most Recent Monitor Data Heart Rate from ECG 101 NIBP 99/81 NIBP BP-Mean 87 Respiration from ECG 17 SpO2 93 I&O: 06/30/19 07/01/19 07/02/19 06:59 06:59 06:59 Intake Total 5128 4688 960 Output Total 645 1880 800 Balance 4483 2808 160 Result Diagrams: 07/01/19 07:58 07/01/19 07:58 Additional Labs: Accuchecks 07/01/19 06/30/19 06/30/19 06:05 20:05 16:12 POC Glucose 108 126 H 118 H 06/30/19 11:13 POC Glucose 135 H Hospitalist ROS - Medication Medications: Active Medications Generic Name Dose Route Start Last Admin Trade Name Freq PRN Reason Stop Dose Admin Acetaminophen 650 mg 06/27/19 21:04 06/30/19 19:56 Tylenol PO 650 mg Q4H PRN Administration Headache/Fever/Mild Pain (1-3) Hydrocodone Bitart/Acetaminophen 1 tab 06/29/19 10:47 07/01/19 03:16 [place] 5/325 PO 1 tab Q6H PRN Administration Moderate to Severe Pain (6-10) Aspirin 81 mg 06/29/19 09:00 07/01/19 08:41 Ecotrin PO 81 mg QAM RAS Administration Cyclobenzaprine HCl 5 mg 07/01/19 11:14 07/01/19 11:23 Flexeril PO 5 mg TIDPRN PRN Administration Muscle Spasm Enoxaparin Sodium 180 mg 06/27/19 21:00 07/01/19 08:41 Lovenox SC 180 mg 0900,2100 RAS Administration Furosemide 20 mg 06/29/19 21:00 07/01/19 08:41 Lasix SLOW IVP 20 mg BID RAS Administration Dextrose/Sodium Chloride 1,000 mls @ 125 mls/hr 06/27/19 17:17 07/01/19 00:23 D5 0.9% Ns IV 1,000 mls .Q8H RAS Administration Norepinephrine Bitartrate 8 mg 250 mls @ 0 mls/hr 06/27/19 17:30 07/01/19 07: 13 / Dextrose/Water IVPB 250 mls INF PRN Administration TO MAINTAIN MAP > 65 Protocol As Directed Cefepime HCl 1 gm/ Sodium 100 mls @ 200 mls/hr 06/28/19 09:00 07/01/19 08:41 Chloride IVPB 100 mls Q12HR RAS Administration Amiodarone HCl 450 mg/ 259 mls @ 17.26 mls/hr 06/30/19 08:48 07/01/19 07:13 Dextrose/Water IVPB 259 mls INF RAS Administration Protocol 0.5 MG/MIN Metronidazole 500 mg/ Device 100 mls @ 100 mls/hr 06/30/19 22:00 07/01/19 05: 57 IVPB 100 mls Q8HR RAS Administration Magnesium Oxide 400 mg 06/27/19 17:30 06/29/19 05:55 Magnesium Oxide PO 400 mg BIDPRN PRN Administration FOR SERUM MAG 1.4 - 2.0 Miconazole Nitrate 0 gm 06/30/19 21:00 06/30/19 19:55 Monistat 7 Vaginal 2% Cream TOP 1 applic HS RAS Administration Sodium Chloride 10 ml 06/27/19 21:00 07/01/19 08:42 Flush - Normal Saline IVF Not Given Q12HR RAS Tamsulosin HCl 0.4 mg 06/28/19 09:00 07/01/19 08:42 Flomax PO 0.4 mg DAILY RAS Administration - Exam General Appearance: NAD, awake alert Eye: PERRL ENT: normocephalic atraumatic Neck: supple Heart: RRR Respiratory: CTAB, normal chest expansion Gastrointestinal: soft, normal bowel sounds Gastrointestinal - other findings: panus -- erythematic -- topical application of antifungal Hosp A/P - Plan 1) Septic shock -Sepsis: likely diverticulitis; continue vanc, zosyn (mild reaction in distant past) pending workup. - on levophed still at 13ucg --vans stopped as levels quite high -- cw cefepime, - not sure, which one is we are treating -- Diverticultiis? or pancultis no CT done, abd xray -- inconclusive -- will fw on the CT result and infla'y markers -adding flagyl empiric, will deescalate once above results available (2) Atrial fibrillation with RVR - HR better controlled, defer to cardiology - amio drip - dig level ordered---quite high -- stopped digoxin/5th -TSH at 5.6, mildly high; not on levo--rept TSH in 2 to 3 wks (3) Acute hyperkalemia -resolved (4) Intertriginous candidiasis Code(s): B37.2 - CANDIDIASIS OF SKIN AND NAIL Status: Acute -hx of ?vaginal bleed w.. clotrimazole? --trial of nystatin powder. SUSAN -: renal functional at baseline levels. stopped digoxin as digoxin level high. vanc trough also high. nl Cr.
--- NOTE | 2019-07-01 16:18 | PQF ---
DATE: 07-01-19 ATTN: DR. BG LADD Please exercise your independent, professional judgment in responding to the clarification form. Clinical indicators are provided on the bottom of this form for your review Please check appropriate box(s) to clarify if the following diagnosis has been ruled in or ruled out: ACUTE DIASTOLIC CONGESTIVE HEART FAILURE [ ] Ruled in diagnosis [ ] Continue to treat [ ] Resolved [ ] Ruled out diagnosis [ ] Improving [ x] Cannot rule out diagnosis [ ] Other diagnosis [ ] Unable to determine In addition, please specify: Present on Admission (POA): [x ] Yes [ ] No [ ] Unable to determine For continuity of documentation, please document condition throughout progress notes and discharge summary. Thank You. CLINICAL INDICATORS - SIGNS / SYMPTOMS / LABS / RESULTS AND LOCATION IN MR: BNP: 06-28-19: 1093.[address] FUNEZ 06-28-19: ACUTE CONGESTIVE HEART FAILURE WITH PERSISTENT A FIB WITH RVR CONSULT DR. NELSON 06-28-19: NO LASIX UNLESS SHE BECOMES SOB, BP WOULD NOT TOLERATE AT THIS TIME AND LIKELY HE BNP ELEVATION IS DUE TO VERY RAPID A FIB YESTERDAY WHICH IS BETTER CONTROLLED. CONSULT NOTE DR. TRUJILLO 06-29-19: ELEVATED BNP COMPATIBLE WITH DIASTOLIC HEART FAILURE. CXR 06-27-19: PULMONARY VASCULAR CONGESTION IS NOTED. RISK FACTORS / RESULTS AND LOCATION IN MR: H&P 06-27-19: HX A FIB, HTN TREATMENTS / RESULTS AND LOCATION IN MR: CARDIOLOGY CONSULT 06-27-[address] NELSON 06-28-19: NO LASIX UNLESS SHE BECOMES SOB, BP WOULD NOT TOLERATE AT THIS TIME AND LIKELY HE BNP ELEVATION IS DUE TO VERY RAPID A FIB YESTERDAY WHICH IS BETTER CONTROLLED. (This form is maintained as a part of the permanent medical record) 2014 [email or web address]. All Rights Reserved ELIZA [email or web address] LEILANI
[2019-07-01] MEDS: Miconazole 2% Vaginal Cream 45 GM TUBE TOP SCH (20:41)
[2019-07-01] MEDS: Acetaminophen 325 MG TAB PO PRN (21:35)
[2019-07-02] MEDS: metroNIDAZOLE 500 MG in Premix Bag 1 BAG IVPB SCH ×3 (05:28→21:30)
--- NOTE | 2019-07-02 07:31 | CON ---
DATE OF CONSULTATION: 07/01/2019 CHIEF COMPLAINT: Vaginal bleeding. HISTORY OF PRESENT ILLNESS: The patient is a 69-year-old postmenopausal female , who was admitted to the hospital on 06/27/2019 for acute hyperkalemia, candidiasis, and sepsis. During her stay, the patient was placed on prophylaxis for stroke prevention in the presence of atrial fibrillation and since her stay had began having vaginal bleeding. The patient reports that she has intermittent bleeding at home. She reports that she has been seen by an STEMMER MACHINE on several occasions. Her last visit was with Dr. Banks in 2014, when an endometrial biopsy was performed. The patient remembers recommendations were to have a hysterectomy once she was able to lose weight. She reports that she has lost about 100 pounds since then, but just has never followed up since that visit. Since then, Dr. Banks has moved out of state. In reviewing the hospital record, the patient does have results for endometrial biopsies performed in 2012 and 2014. Endometrial biopsy performed in 2014 showed atrophy and benign endometrium and in 2012 showed an endometrial polyp after having hysteroscopy and D and C. During that procedure, the patient was noted to have a large endocervical polyp, which was removed with just torsion. The uterus was sounded to 8 cm. Hysteroscope was used and found a small endometrial polyp that was also removed. Also was noted a large uterine fibroid encompassing the entirety of the uterine cavity was noted. Currently, the patient is in ICU requiring pressure support with Levophed and amiodarone for attempted treatment and control of her atrial fibrillation, cefepime for infection as well as a number of other medications. PAST MEDICAL HISTORY: Significant for atrial fibrillation, hypertension, diverticulosis, constipation, hematuria, and diabetes. PAST SURGICAL HISTORY: Includes appendectomy, cholecystectomy, and D and C for abnormal uterine bleeding. SOCIAL HISTORY: Denies smoking, alcohol, or drug use. The patient reports 100-pound weight loss over the last 5 years and reports that she has been bed- bound for the last 2 years. PHYSICAL EXAMINATION: GENERAL: The patient is awake and alert at time of my examination, cooperative and pleasant to interact with. She was short of breath as we had conversation, but was alert, oriented, and cooperative. The patient is morbidly obese. LABORATORY DATA: Show hemoglobin of 13.2, hematocrit 42.4, and platelets of 316,000. Last night count showed to be 14.4 and 44.2. Nurses reports that they have had to change the Chux out periodically with blood staining, but could not give me a quantity. ASSESSMENT AND PLAN: The patient is a 69-year-old female with abnormal uterine bleeding in the presence of Lovenox 180 mg twice a day likely resulting in this vaginal bleeding. The patient has a history of uterine bleeding, has been evaluated on at least 2 documented occasions in the last 5 to 7 years, both demonstrating atrophic changes on pathology and histology and a visible large fibroid on hysteroscopy per Dr. Banks. This bleeding is likely an exacerbation of the combination of this atrophy and presence of the uterine fibroid and high dose lovenox. The patient does need outpatient followup and likely another endometrial biopsy to evaluate current histology. The patient, given her habitus, is at risk for developing endometrial hyperplasia; however, with her 2 previous tests showing atrophy, the chance of this being cancerous today is relatively lower than an unexamined person of her stature. There are no in-hospital recommendations at this time from STEMMER MACHINE standpoint. The need of Lovenox to reduce her risk for stroke is legitimate and in my opinion more important than reducing the amount of bleeding she is having vaginally at this time. Should her bleeding become significantly more, there may be a balance that needs to be played between the amount of Lovenox that she is on and the amount of bleeding she is having. However, at this time, I do not see any significant evidence requiring those changes. We will keep an eye on her from a distance. Again, recommendation is outpatient followup with [facility] [place] once she is stabilized to go home. Job ID: [id number] [facility]
[2019-07-02] MEDS: Dextrose 5 % And 0.9 % NaCl 1,000 ML IV SCH ×4 (08:33→21:30)
[2019-07-02] MEDS: Furosemide 20 MG/2 ML VIAL SLOW IVP SCH (08:34)
[2019-07-02] MEDS: Aspirin 81 mg Enteric Coated Tablet PO SCH (08:34)
[2019-07-02] MEDS: Tamsulosin HCl 0.4 MG CAP PO SCH (08:34)
[2019-07-02] MEDS: Cefepime 1 GM in Sodium Chloride 0.9% 100 ML IVPB SCH ×2 (08:34→20:11)
[2019-07-02] MEDS: HYDROcodone/Acetaminophen 5/325 mg Tablet PO PRN ×3 (08:37→20:10)
--- NOTE | 2019-07-02 08:58 | PRG ---
DATE OF SERVICE: 07/02/2019 SUBJECTIVE: is a morbidly obese female, remains having multiple problems, abdominal pain, vaginal bleeding, left leg pain. OBJECTIVE: VITAL SIGNS: Pulse 123, atrial fibrillation, blood pressure 101/75, saturations are 90%, respirations 18. CHEST: Decreased breath sounds. No wheezing. CARDIAC: Normal S1, S2. No gallops. ABDOMEN: No masses. LABORATORY DATA: White count is normal. No left shift. Platelet count is 136. Sodium 131, BUN is elevated 13.2. IMPRESSION: Morbid obesity, hypertension, possibly sepsis, vaginal bleeding, azotemia. Discontinue Lasix. Continue slow hydration. Baseline chest x-ray. Antibiotics. Supportive care. We will follow. Job ID: [id number]
[2019-07-02] MEDS: Enoxaparin Sodium 100 MG/ML SYRINGE SC SCH ×2 (08:59→20:11)
[2019-07-02] MEDS: Norepinephrine 8 MG in Dextrose 5% in Water 242 ML IVPB PRN (10:05)
--- NOTE | 2019-07-02 10:54 | RAD ---
FRONTAL RADIOGRAPH CHEST: Date: 07/02/2019 COMPARISON: 06/27/2019. HISTORY: Congestive heart failure. FINDINGS: Stable enlargement of the cardiac silhouette. Stable pulmonary vascular congestion. There is dense pl eural and parenchymal opacity in the left base, stable when compared to the prior exam. There is hazy nonspecific basilar interstitial prominence with mild superimposed air space disease within the righ t lung base, stable as well. Stable right-sided vascular catheter present, not well assessed secondar y to portable technique, body habitus, and rotation to the left. IMPRESSION: Stable appearance to the chest as detailed above. POS: [facility]
[2019-07-02] MEDS: Amiodarone 450 MG in Dextrose 5% in Water 250 ML IVPB SCH (12:55)
--- NOTE | 2019-07-02 13:24 | PDOC.HOSPP ---
- Subjective Encounter Date: 07/02/19 Encounter Time: 10:20 non-verbal Subjective: pt states she is ok. still on levophed; amio drip. off lasix.no further vaginal bleed. urine looks clear. - Objective Vital Signs & Weight: Vital Signs (12 hours) Temp Pulse Ox 07/02/19 11:00 98.2 F 07/02/19 08:00 99 07/02/19 07:15 98 07/02/19 07:00 98.0 F 07/02/19 04:00 98.7 F 07/02/19 03:55 99 Weight Admit Weight 423 lb 4.6 oz Weight 450 lb 6.47 oz Most Recent Monitor Data Heart Rate from ECG 108 NIBP 94/67 NIBP BP-Mean 76 Respiration from ECG 33 SpO2 99 I&O: 07/01/19 07/02/19 07/03/19 06:59 06:59 06:59 Intake Total 4688 4826.1 871 Output Total 1880 2445 325 Balance 2808 2381.1 546 Result Diagrams: 07/01/19 07:58 07/02/19 04:45 Additional Labs: Accuchecks 07/02/19 11:15 POC Glucose 116 H Hospitalist ROS - Medication Medications: Active Medications Generic Name Dose Route Start Last Admin Trade Name Freq PRN Reason Stop Dose Admin Acetaminophen 650 mg 06/27/19 21:04 07/01/19 21:35 Tylenol PO 650 mg Q4H PRN Administration Headache/Fever/Mild Pain (1-3) Hydrocodone Bitart/Acetaminophen 1 tab 06/29/19 10:47 07/02/19 08:37 [place] 5/325 PO 1 tab Q6H PRN Administration Moderate to Severe Pain (6-10) Aspirin 81 mg 06/29/19 09:00 07/02/19 08:34 Ecotrin PO 81 mg QAM RAS Administration Cyclobenzaprine HCl 5 mg 07/01/19 11:14 07/01/19 11:23 Flexeril PO 5 mg TIDPRN PRN Administration Muscle Spasm Enoxaparin Sodium 180 mg 06/27/19 21:00 07/02/19 08:59 Lovenox SC 180 mg 0900,2100 RAS Administration Norepinephrine Bitartrate 8 mg 250 mls @ 0 mls/hr 06/27/19 17:30 07/02/19 10: 05 / Dextrose/Water IVPB 250 mls INF PRN Administration TO MAINTAIN MAP > 65 Protocol As Directed Cefepime HCl 1 gm/ Sodium 100 mls @ 200 mls/hr 06/28/19 09:00 07/02/19 08:34 Chloride IVPB 100 mls Q12HR RAS Administration Amiodarone HCl 450 mg/ 259 mls @ 17.26 mls/hr 06/30/19 08:48 07/02/19 12:55 Dextrose/Water IVPB 259 mls INF RAS Administration Protocol 0.5 MG/MIN Metronidazole 500 mg/ Device 100 mls @ 100 mls/hr 06/30/19 22:00 07/02/19 05: 28 IVPB 100 mls Q8HR RAS Administration Dextrose/Sodium Chloride 1,000 mls @ 75 mls/hr 07/02/19 08:42 07/02/19 09:14 D5 0.9% Ns IV Not Given .[id number] RAS Magnesium Oxide 400 mg 06/27/19 17:30 06/29/19 05:55 Magnesium Oxide PO 400 mg BIDPRN PRN Administration FOR SERUM MAG 1.4 - 2.0 Miconazole Nitrate 0 gm 06/30/19 21:00 07/01/19 20:41 Monistat 7 Vaginal 2% Cream TOP 1 applic HS RAS Administration Sodium Chloride 10 ml 06/27/19 21:00 07/02/19 09:12 Flush - Normal Saline IVF 10 ml Q12HR RAS Administration Tamsulosin HCl 0.4 mg 06/28/19 09:00 07/02/19 08:34 Flomax PO 0.4 mg DAILY RAS Administration - Exam General Appearance: NAD, awake alert General - other findings: obese Eye: PERRL ENT: normocephalic atraumatic Neck: supple Heart: RRR Respiratory: CTAB, normal chest expansion Gastrointestinal: soft, normal bowel sounds Extremities - other findings: no pitting edema Hosp A/P - Plan 1) Septic shock -Sepsis: likely diverticulitis; - on levophed --vans stopped as levels quite high -- cw cefepime, - not sure, which one is we are treating -- Diverticultiis? or pancultis no CT done[d/cd due to her body habitus], abd xray -- inconclusive -adding flagyl empiric, will deescalate once above results available (2) Atrial fibrillation with RVR - HR better controlled, defer to cardiology - amio drip - dig level ordered---quite high -- stopped digoxin/5th -TSH at 5.6, mildly high; not on levo--rept TSH in 2 to 3 wks (3) Acute hyperkalemia -resolved (4) Intertriginous candidiasis Code(s): B37.2 - CANDIDIASIS OF SKIN AND NAIL Status: Acute -hx of ?vaginal bleed w.. clotrimazole? --trial of nystatin powder. Vaginal bleed hx of fibroids -r/o hematuria -appreciate the hlep from DR. Vazquez --[facility] SUSAN -: renal functional at baseline levels. stopped digoxin as digoxin level high. vanc trough also high/stopped. nl Cr. cefepime/flagyl. once off the pressor, PTherapy evaluation. off to tele bed.
--- NOTE | 2019-07-02 17:05 | PDOC.CPN ---
- Subjective Date: 07/02/19 Time: 17:04 Interval history: No new issues. Still needing Levophed. - Review of Systems General: denies: fever/chills, weight/appetite/sleep changes, night sweats, fatigue Respiratory: denies: cough, congestion, shortness of breath, exercise intolerance Cardiovascular: reports: edema. denies: chest pain, palpitation, paroxysmal nocturnal dyspnea, orthopnea Gastrointestinal: denies: nausea, vomiting, diarrhea, constipation, abd pain, GI bleeding Musculoskeletal: denies: pain, tenderness, stiffness, swelling, arthritis/ arthralgias Neurological: denies: numbness, syncope, seizure, weakness - Objective Allergies/Adverse Reactions: Allergies Allergy/AdvReac Type Severity Reaction Status Date / Time Penicillins Allergy Verified 06/13/19 13:56 [id number]-[id number] Reductase Allergy Verified 06/13/19 13:56 Inhibitor tetanus toxoid, adsorbed Allergy Verified 06/13/19 13:56 Visit Medications: Current Medications Acetaminophen (Tylenol) 650 mg PO Q4H PRN PRN Reason: Headache/Fever/Mild Pain (1-3) Last Admin: 07/01/19 21:35 Dose: 650 mg Acetaminophen (Tylenol) 650 mg [place] Q4H PRN PRN Reason: Headache/Fever/Mild Pain (1-3) Hydrocodone Bitart/Acetaminophen ([place] 5/325) 1 tab PO Q6H PRN PRN Reason: Moderate to Severe Pain (6-10) Last Admin: 07/02/19 14:27 Dose: 1 tab Aspirin (Ecotrin) 81 mg PO QAM [facility] Last Admin: 07/02/19 08:34 Dose: 81 mg Cyclobenzaprine HCl (Flexeril) 5 mg PO TIDPRN PRN PRN Reason: Muscle Spasm Last Admin: 07/01/19 11:23 Dose: 5 mg Dextrose/Water (Dextrose 50%) 25 gm SLOW IVP PRN PRN PRN Reason: Hypoglycemia Enoxaparin Sodium (Lovenox) 180 mg SC 0900,2100 [facility] Last Admin: 07/02/19 08:59 Dose: 180 mg Glucagon (Glucagon) 1 mg IM PRN PRN PRN Reason: Hypoglycemia Dextrose/Water (D5w) 1,000 mls @ 0 mls/hr IV .Q0M PRN PRN Reason: Hypoglycemia Norepinephrine Bitartrate 8 mg (/ Dextrose/Water) 250 mls @ 0 mls/hr IVPB INF PRN; Protocol PRN Reason: TO MAINTAIN MAP > 65 Last Admin: 07/02/19 10:05 Dose: 250 mls Potassium Chloride 40 meq/ (Sodium Chloride) 270 mls @ 135 mls/hr IVPB ASDIR PRN PRN Reason: FOR SERUM K+ 2.5 - 3.5 Potassium Chloride 40 meq/ (Device) 100 mls @ 50 mls/hr IVPB ASDIR PRN PRN Reason: FOR SERUM K+ 2.5 - 3.5 Magnesium Sulfate 1 gm/ Sodium (Chloride) 102 mls @ 102 mls/hr IV PRN PRN PRN Reason: MAG LEVEL 1.4 - 2.0 Magnesium Sulfate 2 gm/ Device 50 mls @ 50 mls/hr IVPB ASDIR PRN PRN Reason: MAGNESIUM < 1.4 Potassium Phosphate 9 mmol/ (Sodium Chloride) 103 mls @ 25.75 mls/hr IVPB ASDIR PRN PRN Reason: Phosphate 1.0-1.8 Potassium Phosphate 12 mmol/ (Sodium Chloride) 254 mls @ 63.5 mls/hr IV ASDIR PRN PRN Reason: Serum phosphate 0.5-0.9 Potassium Phosphate 15 mmol/ (Sodium Chloride) 255 mls @ 63.75 mls/hr IV ASDIR PRN PRN Reason: Serum Phos < 0.5 Cefepime HCl 1 gm/ Sodium (Chloride) 100 mls @ 200 mls/hr IVPB Q12HR [facility] Last Admin: 07/02/19 08:34 Dose: 100 mls Amiodarone HCl 450 mg/ (Dextrose/Water) 259 mls @ 17.26 mls/hr IVPB INF RAS; Protocol Last Admin: 07/02/19 12:55 Dose: 259 mls Metronidazole 500 mg/ Device 100 mls @ 100 mls/hr IVPB Q8HR [facility] Last Admin: 07/02/19 13:35 Dose: 100 mls Dextrose/Sodium Chloride (D5 0.9% Ns) 1,000 mls @ 75 mls/hr IV .[id number] [facility] Last Admin: 07/02/19 09:14 Dose: Not Given Insulin Human Lispro (Humalog) 0 units SC .MILD SLIDING SCALE PRN PRN Reason: Mild Correctional Scale Magnesium Oxide (Magnesium Oxide) 400 mg PO BIDPRN PRN PRN Reason: FOR SERUM MAG 1.4 - 2.0 Last Admin: 06/29/19 05:55 Dose: 400 mg Magnesium Oxide (Magnesium Oxide) 800 mg PO PRN PRN PRN Reason: FOR SERUM MAG < 1.4 Miconazole Nitrate (Monistat 7 Vaginal 2% Cream) 0 gm TOP HS [facility] Last Admin: 07/01/19 20:41 Dose: 1 applic Miscellaneous Medication (Phos-Nak) 1 pkt PO TIDPRN PRN PRN Reason: FOR PHOS LEVEL 1.0 - 1.8 Miscellaneous Medication (Phos-Nak) 2 pkt PO TIDPRN PRN PRN Reason: FOR PHOS LEVEL 0.5 - 1.0 Ccu Electrolyte (Replacement Protocol) 0 each FS PRN PRN PRN Reason: FOR ELECTROLYTE REPLACEMENT Potassium Chloride (K-Dur) 40 meq PO ASDIR PRN PRN Reason: FOR SERUM K+ 2.5 - 3.5 Potassium Chloride (Klor-Con) 40 meq PER TUBE ASDIR PRN PRN Reason: FOR SERUM K+ 2.5-3.5 Sodium Chloride (Flush - Normal Saline) 10 ml IVF Q12HR [facility] Last Admin: 07/02/19 09:12 Dose: 10 ml Sodium Chloride (Flush - Normal Saline) 10 ml IVF PRN PRN PRN Reason: Saline Flush Tamsulosin HCl (Flomax) 0.4 mg PO DAILY [facility] Last Admin: 07/02/19 08:34 Dose: 0.4 mg Vital Signs & Weight: Vital Signs Temp Pulse BP Pulse Ox 07/02/19 15:00 97.7 F 07/02/19 13:32 67 97/53 L 07/02/19 11:00 98.2 F 07/02/19 08:00 99 07/02/19 07:15 98 07/02/19 07:00 98.0 F Admit Weight 423 lb 4.6 oz Weight 450 lb 6.47 oz - Physical Exam General: alert & oriented x3 HEENT: mucus membranes moist Neck: supple neck Cardiac: irregularly regular Lungs: normal breath sounds Neuro: grossly intact Abdomen: active bowel sounds Extremities: negative: other: (Trace edema.) Skin: clear Musculoskeletal: no pain - Labs Result Diagrams: 07/01/19 07:58 07/02/19 04:45 - Telemetry Supraventricular conduction: atrial fibrillation - Assessment/Plan Assessment/Plan: 1. Afib RVR. Paroxysmal. Lenient rate control. 2. Vaginal bleeding 3. N/V, improved. 4. Hypotension 5. Morbid obesity 6. Severe deconditioning. PLAN: - Continue amiodarone gtt for rate control. - Continue digoxin. - Still needing levophed for hypotension. - Lovenox full dose for stroke prophylaxis. If vaginal bleeding continues or worsens then stop lovenox. - Critical Care Time Critical care time (mins): 30
[2019-07-02] MEDS: Miconazole 2% Vaginal Cream 45 GM TUBE TOP SCH (21:29)
[2019-07-03 03:58] LABS: Anion Gap 11 mmol/L (10-20); BUN (Urea Nitrogen) 69 mg/dL (9.8-20.1); Calc. Creatinine Clearance 215 mL/min (70-130); Calcium 8.6 mg/dL (7.8-10.44); Carbon Dioxide 20 mmol/L (23-31); Chloride 109 mmol/L (98-107); Estimated GFR-MDRD 70; Glucose 115 mg/dL (80-115); Potassium 5.5 mmol/L (3.5-5.1); Sodium 134 mmol/L (136-145)
[2019-07-03] MEDS: HYDROcodone/Acetaminophen 5/325 mg Tablet PO PRN (04:28)
[2019-07-03] MEDS: metroNIDAZOLE 500 MG in Premix Bag 1 BAG IVPB SCH ×3 (05:55→21:02)
[2019-07-03] MEDS: Norepinephrine 8 MG in Dextrose 5% in Water 242 ML IVPB PRN (05:57)
[2019-07-03] MEDS: Amiodarone 450 MG in Dextrose 5% in Water 250 ML IVPB SCH (05:57)
[2019-07-03] MEDS: Cefepime 1 GM in Sodium Chloride 0.9% 100 ML IVPB SCH ×2 (08:32→20:36)
[2019-07-03] MEDS: Tamsulosin HCl 0.4 MG CAP PO SCH (08:32)
[2019-07-03] MEDS: Aspirin 81 mg Enteric Coated Tablet PO SCH (08:32)
[2019-07-03] MEDS: Enoxaparin Sodium 100 MG/ML SYRINGE SC SCH (08:33)
--- NOTE | 2019-07-03 12:38 | PDOC.HOSPP ---
- Subjective Encounter Date: 07/03/19 Encounter Time: 09:40 Subjective: pt's cortisol came back, low, hyperkalemia, difficult to come off pressor -- appreciate dr. Jeter's call. will start her on hydrocortisone and see the progress. pt looks quite lethargic. she had big dark stool this am. d/w RN. will stop lovenox,will monitor hgb in am, if dropped, consider GI consult at that point. still on levophed. - Objective Vital Signs & Weight: Vital Signs (12 hours) Temp Pulse Ox 07/03/19 09:00 97.3 F L 07/03/19 08:00 96 07/03/19 07:49 96 07/03/19 04:00 98.1 F Weight Admit Weight 423 lb 4.6 oz Weight 462 lb 4.949 oz Most Recent Monitor Data Heart Rate from ECG 83 NIBP 97/52 NIBP BP-Mean 67 Respiration from ECG 16 SpO2 97 I&O: 07/02/19 07/03/19 07/04/19 06:59 06:59 06:59 Intake Total 4826.1 3531 120 Output Total 2445 1455 330 Balance 2381.1 2076 -210 Result Diagrams: 07/01/19 07:58 07/03/19 03:30 Additional Labs: Accuchecks 07/03/19 07/03/19 07/03/19 11:08 08:43 05:58 POC Glucose 127 H 126 H 111 H 07/02/19 07/02/19 07/02/19 21:14 16:37 08:01 POC Glucose 109 126 H 110 07/02/19 07/01/19 07/01/19 06:18 19:52 17:52 POC Glucose 97 102 87 07/01/19 11:59 POC Glucose 112 H Hospitalist ROS - Medication Medications: Active Medications Generic Name Dose Route Start Last Admin Trade Name Freq PRN Reason Stop Dose Admin Acetaminophen 650 mg 06/27/19 21:04 07/01/19 21:35 Tylenol PO 650 mg Q4H PRN Administration Headache/Fever/Mild Pain (1-3) Hydrocodone Bitart/Acetaminophen 1 tab 06/29/19 10:47 07/03/19 04:28 [place] 5/325 PO 1 tab Q6H PRN Administration Moderate to Severe Pain (6-10) Aspirin 81 mg 06/29/19 09:00 07/03/19 08:32 Ecotrin PO 81 mg QAM RAS Administration Cyclobenzaprine HCl 5 mg 07/01/19 11:14 07/01/19 11:23 Flexeril PO 5 mg TIDPRN PRN Administration Muscle Spasm Norepinephrine Bitartrate 8 mg 250 mls @ 0 mls/hr 06/27/19 17:30 07/03/19 05: 57 / Dextrose/Water IVPB 250 mls INF PRN Administration TO MAINTAIN MAP > 65 Protocol As Directed Cefepime HCl 1 gm/ Sodium 100 mls @ 200 mls/hr 06/28/19 09:00 07/03/19 08:32 Chloride IVPB 100 mls Q12HR RAS Administration Amiodarone HCl 450 mg/ 259 mls @ 17.26 mls/hr 06/30/19 08:48 07/03/19 05:57 Dextrose/Water IVPB 259 mls INF RAS Administration Protocol 0.5 MG/MIN Metronidazole 500 mg/ Device 100 mls @ 100 mls/hr 06/30/19 22:00 07/03/19 05: 55 IVPB 100 mls Q8HR RAS Administration Dextrose/Sodium Chloride 1,000 mls @ 75 mls/hr 07/02/19 08:42 07/02/19 21:30 D5 0.9% Ns IV 1,000 mls .[id number] RAS Administration Magnesium Oxide 400 mg 06/27/19 17:30 06/29/19 05:55 Magnesium Oxide PO 400 mg BIDPRN PRN Administration FOR SERUM MAG 1.4 - 2.0 Miconazole Nitrate 0 gm 06/30/19 21:00 07/02/19 21:29 Monistat 7 Vaginal 2% Cream TOP 1 applic HS RAS Administration Sodium Chloride 10 ml 06/27/19 21:00 07/03/19 08:33 Flush - Normal Saline IVF 10 ml Q12HR RAS Administration Tamsulosin HCl 0.4 mg 06/28/19 09:00 07/03/19 08:32 Flomax PO 0.4 mg DAILY RAS Administration - Exam General Appearance: ill appearing Eye: PERRL ENT: normocephalic atraumatic Neck: supple Heart: RRR Respiratory: CTAB Gastrointestinal: soft Gastrointestinal - other findings: huge pannus. Neurological: no focal deficits Hosp A/P - Plan 1) Septic shock -Sepsis: likely diverticulitis; - on levophed --vans stopped as levels quite high -- cw cefepime, - not sure, which one is we are treating -- Diverticultiis? or pancultis no CT done[d/cd due to her body habitus], abd xray -- inconclusive -adding flagyl empiric, will deescalate once above results available (2) Atrial fibrillation with RVR - HR better controlled, defer to cardiology - amio drip - dig level ordered---quite high -- stopped digoxin/5th -TSH at 5.6, mildly high; not on levo--rept TSH in 2 to 3 wks (3) Acute hyperkalemia -resolved (4) Intertriginous candidiasis Code(s): B37.2 - CANDIDIASIS OF SKIN AND NAIL Status: Acute -hx of ?vaginal bleed w.. clotrimazole? --trial of nystatin powder. Vaginal bleed hx of fibroids -r/o hematuria -appreciate the hlep from DR. Vazquez --plan for outpt fw w.. [facility]. SUSAN -: renal functional at baseline levels. stopped digoxin as digoxin level high. vanc trough also high/stopped. nl Cr. cefepime/flagyl. once off the pressor, PTherapy evaluation. off to tele bed. 8th prob 2ary adrenal insuff d/t several acute stress--[low cortisol level] -appreciate Dr. Jeter's input. --TSH ok --one dose of cosyntropin given -after cortosyn stim test drawn, will start her on hydrocortisone 50mg tid and likely she would be able to come off the pressor. Black stool - concern for GIB --as she was getting lovenox bid. - stopped lovenox -GI consult placed. -started her on PPI bid Hyperkalemia - will repeat the K level, as she had huge BM. if still high, TRIAL OF ALBUTEROL , DEXTOSE AND INSULIN --talk to RN on that. -repeat BMP this evening. all above issues discussed with her dtr in detail -and her qs are answered. Angela [phone]. Full code.
[2019-07-03] MEDS ORDERED: Cosyntropin 250 MCG VIAL SLOW IVP SCH (12:45)
[2019-07-03] MEDS ORDERED: Dextrose 50% Abboject 50 ML SYRINGE ONE (13:04)
[2019-07-03 13:14] LABS: #Eosinphils 0.1 thou/uL (0.0-0.7); #Lymphocytes 1.6 thou/uL (1.20-3.40); #Monocytes 1.4 thou/uL (0.11-0.59); #Neutrophils 14.3 thou/uL (1.40-6.50); %Basophils 0.2 % (0.0-1.0); %Eosinophils 0.7 % (0.0-10.0); %Neutrophils 82.1 % (42.0-75.0); Hemoglobin 9.8 g/dL (12.0-16.0); Mean Corpuscular HGB CONC 32.5 g/dL (32.0-36.0); Mean Corpuscular Hemoglobin 31.4 pg (27.0-31.0); Mean Corpuscular Volume 96.6 fL (78.0-98.0); Mean Platelet Volume 7.1 fL (7.4-10.4); Platelet Count 316 thou/uL (130-400); RBC Distribution Width 14.8 % (11.5-14.5); Red Blood Cell (RBC) Count 3.11 mill/uL (4.20-5.40); White Blood Cell (WBC) Count 17.5 thou/uL (4.8-10.8)
[2019-07-03] MEDS ORDERED: Hydrocortisone 10 mg Tablet PO SCH ×3 (13:15→21:00)
[2019-07-03] MEDS ORDERED: Albuterol Sulfate 2.5 mg/3 ml Neb NEB SCH (13:15)
[2019-07-03] MEDS ORDERED: Insulin Regular 300 UNITS/3 ML VIAL IVP SCH (13:15)
[2019-07-03] MEDS ORDERED: Dextrose 50% Abboject 50 ML SYRINGE SLOW IVP SCH (13:15)
[2019-07-03] MEDS: Dextrose 5 % And 0.9 % NaCl 1,000 ML IV SCH (13:23)
[2019-07-03 13:32] LABS: Anion Gap 10 mmol/L (10-20); BUN (Urea Nitrogen) 71 mg/dL (9.8-20.1); Calc. Creatinine Clearance 226 mL/min (70-130); Calcium 8.8 mg/dL (7.8-10.44); Carbon Dioxide 21 mmol/L (23-31); Chloride 108 mmol/L (98-107); Estimated GFR-MDRD 72; Glucose 123 mg/dL (80-115); Potassium 5.3 mmol/L (3.5-5.1); Sodium 134 mmol/L (136-145)
[2019-07-03] MEDS ORDERED: Pantoprazole 40 MG VIAL IVP SCH ×3 (13:45→21:00)
--- NOTE | 2019-07-03 14:38 | PRG ---
DATE OF SERVICE: 07/03/2019 SUBJECTIVE: Syeda Hugo is a morbidly obese 69-year-old female, remains in the ICU, on amiodarone drip, Levophed drip, getting antibiotics. So far, cultures are negative except for OBJECTIVE: VITAL SIGNS: Blood pressure is 110/ , on Levophed, saturations 96%, respiratory rate 18, pulse 80. GENERAL: She denies any pain. CHEST: Decreased breath sounds. No wheezing. ABDOMEN: Massive. EXTREMITIES: Trace edema. LABORATORY DATA: Creatinine is normal, BUN is elevated to 69, suggesting some volume reduction, prerenal azotemia. X-ray shows cardiomegaly small pleural effusion. ASSESSMENT AND PLAN: Cardiac arrhythmias, supraventricular tachycardia, morbid obesity, possibly sepsis syndrome, abdominal pain. All cultures are negative. She is on Maxipime and Flagyl. Continue supportive care, PT, nutrition. Prognosis is guarded. We will keep her in the ICU. Job ID: [id number]
[2019-07-03] MEDS ORDERED: Hydrocortisone Sod Succ/PF 100 mg/2 ml Vial IVP SCH (15:45)
--- NOTE | 2019-07-03 17:20 | PDOC.CPN ---
- Subjective Date: 07/03/19 Time: 17:18 Interval history: Still needing pressor support. HR better controlled. Breathing at baseline. - Review of Systems General: denies: fever/chills, weight/appetite/sleep changes, night sweats, fatigue Respiratory: reports: exercise intolerance. denies: cough, congestion, shortness of breath Cardiovascular: reports: edema. denies: chest pain, palpitation, paroxysmal nocturnal dyspnea, orthopnea Gastrointestinal: denies: nausea, vomiting, diarrhea, constipation, abd pain, GI bleeding Musculoskeletal: denies: pain, tenderness, stiffness, swelling, arthritis/ arthralgias Neurological: denies: numbness, syncope, seizure, weakness - Objective Allergies/Adverse Reactions: Allergies Allergy/AdvReac Type Severity Reaction Status Date / Time Penicillins Allergy Verified 06/13/19 13:56 Dcycciq-Npo-Njj Reductase Allergy Verified 06/13/19 13:56 Inhibitor tetanus toxoid, adsorbed Allergy Verified 06/13/19 13:56 Visit Medications: Current Medications Acetaminophen (Tylenol) 650 mg PO Q4H PRN PRN Reason: Headache/Fever/Mild Pain (1-3) Last Admin: 07/01/19 21:35 Dose: 650 mg Acetaminophen (Tylenol) 650 mg [place] Q4H PRN PRN Reason: Headache/Fever/Mild Pain (1-3) Amiodarone HCl (Cordarone) 200 mg PO BID [facility] Aspirin (Ecotrin) 81 mg PO QAM [facility] Last Admin: 07/03/19 08:32 Dose: 81 mg Cyclobenzaprine HCl (Flexeril) 5 mg PO TIDPRN PRN PRN Reason: Muscle Spasm Last Admin: 07/01/19 11:23 Dose: 5 mg Dextrose/Water (Dextrose 50%) 25 gm SLOW IVP PRN PRN PRN Reason: Hypoglycemia Glucagon (Glucagon) 1 mg IM PRN PRN PRN Reason: Hypoglycemia Hydrocortisone (Cortef) 50 mg PO TID [facility] Hydrocortisone Sodium Succinate (Solu-Cortef) 100 mg IVP NOW [facility] Stop: 07/03/19 17:45 Last Admin: 07/03/19 15:48 Dose: 100 mg Dextrose/Water (D5w) 1,000 mls @ 0 mls/hr IV .Q0M PRN PRN Reason: Hypoglycemia Norepinephrine Bitartrate 8 mg (/ Dextrose/Water) 250 mls @ 0 mls/hr IVPB INF PRN; Protocol PRN Reason: TO MAINTAIN MAP > 65 Last Admin: 07/03/19 05:57 Dose: 250 mls Potassium Chloride 40 meq/ (Sodium Chloride) 270 mls @ 135 mls/hr IVPB ASDIR PRN PRN Reason: FOR SERUM K+ 2.5 - 3.5 Potassium Chloride 40 meq/ (Device) 100 mls @ 50 mls/hr IVPB ASDIR PRN PRN Reason: FOR SERUM K+ 2.5 - 3.5 Magnesium Sulfate 1 gm/ Sodium (Chloride) 102 mls @ 102 mls/hr IV PRN PRN PRN Reason: MAG LEVEL 1.4 - 2.0 Magnesium Sulfate 2 gm/ Device 50 mls @ 50 mls/hr IVPB ASDIR PRN PRN Reason: MAGNESIUM < 1.4 Potassium Phosphate 9 mmol/ (Sodium Chloride) 103 mls @ 25.75 mls/hr IVPB ASDIR PRN PRN Reason: Phosphate 1.0-1.8 Potassium Phosphate 12 mmol/ (Sodium Chloride) 254 mls @ 63.5 mls/hr IV ASDIR PRN PRN Reason: Serum phosphate 0.5-0.9 Potassium Phosphate 15 mmol/ (Sodium Chloride) 255 mls @ 63.75 mls/hr IV ASDIR PRN PRN Reason: Serum Phos < 0.5 Cefepime HCl 1 gm/ Sodium (Chloride) 100 mls @ 200 mls/hr IVPB Q12HR [facility] Last Admin: 07/03/19 08:32 Dose: 100 mls Metronidazole 500 mg/ Device 100 mls @ 100 mls/hr IVPB Q8HR [facility] Last Admin: 07/03/19 13:21 Dose: 100 mls Dextrose/Sodium Chloride (D5 0.9% Ns) 1,000 mls @ 75 mls/hr IV .[id number] [facility] Last Admin: 07/03/19 13:23 Dose: 1,000 mls Pantoprazole Sodium 80 mg/ (Sodium Chloride) 100 mls @ 10 mls/hr IVPB INF [facility] Insulin Human Lispro (Humalog) 0 units SC .MILD SLIDING SCALE PRN PRN Reason: Mild Correctional Scale Magnesium Oxide (Magnesium Oxide) 400 mg PO BIDPRN PRN PRN Reason: FOR SERUM MAG 1.4 - 2.0 Last Admin: 06/29/19 05:55 Dose: 400 mg Magnesium Oxide (Magnesium Oxide) 800 mg PO PRN PRN PRN Reason: FOR SERUM MAG < 1.4 Miconazole Nitrate (Monistat 7 Vaginal 2% Cream) 0 gm TOP HS [facility] Last Admin: 07/02/19 21:29 Dose: 1 applic Miscellaneous Medication (Phos-Nak) 1 pkt PO TIDPRN PRN PRN Reason: FOR PHOS LEVEL 1.0 - 1.8 Miscellaneous Medication (Phos-Nak) 2 pkt PO TIDPRN PRN PRN Reason: FOR PHOS LEVEL 0.5 - 1.0 Ccu Electrolyte (Replacement Protocol) 0 each FS PRN PRN PRN Reason: FOR ELECTROLYTE REPLACEMENT Pantoprazole Sodium (Protonix) 40 mg IVP NOW [facility] Stop: 07/03/19 19:00 Potassium Chloride (K-Dur) 40 meq PO ASDIR PRN PRN Reason: FOR SERUM K+ 2.5 - 3.5 Potassium Chloride (Klor-Con) 40 meq PER TUBE ASDIR PRN PRN Reason: FOR SERUM K+ 2.5-3.5 Sodium Chloride (Flush - Normal Saline) 10 ml IVF Q12HR [facility] Last Admin: 07/03/19 08:33 Dose: 10 ml Sodium Chloride (Flush - Normal Saline) 10 ml IVF PRN PRN PRN Reason: Saline Flush Tamsulosin HCl (Flomax) 0.4 mg PO DAILY [facility] Last Admin: 07/03/19 08:32 Dose: 0.4 mg Vital Signs & Weight: Vital Signs Temp Pulse Pulse Pulse Resp BP BP 07/03/19 14:00 98.6 F 07/03/19 13:20 89 17 07/03/19 12:48 84 99 96/48 L 104/63 07/03/19 09:00 97.3 F L 07/03/19 08:00 07/03/19 07:49 Pulse Ox 07/03/19 14:00 07/03/19 13:20 98 07/03/19 12:48 07/03/19 09:00 07/03/19 08:00 96 07/03/19 07:49 96 Admit Weight 423 lb 4.6 oz Weight 462 lb 4.949 oz - Physical Exam General: alert & oriented x3 HEENT: mucus membranes moist Neck: supple neck Cardiac: irregularly regular Lungs: decreased breath sounds Neuro: grossly intact Abdomen: active bowel sounds Extremities: 1+ LE edema Skin: clear Musculoskeletal: no pain - Labs Result Diagrams: 07/03/19 12:58 07/03/19 12:58 - Telemetry Supraventricular conduction: atrial fibrillation - Assessment/Plan Assessment/Plan: 1. Afib RVR. Paroxysmal. Lenient rate control. 2. Vaginal bleeding 3. N/V, improved. 4. Hypotension 5. Morbid obesity 6. Severe deconditioning. PLAN: - Will switch amiodarone to PO as this may be making her hypotensive. Will switch to PO at 200 mg BID. - Continue digoxin. - Still needing levophed for hypotension. Wean as tolerated. - Had what looks like melena this morning and STAT CBC showed reduction in Hgb. Will stop Lovenox. - High risk for DVT given hypotension and bed ridden state and unable to give blood thinners due to possible GI bleeding with lovenox. - Bleeding may be the cause we could not get her off levophed. Monitor CBC daily. - Critical Care Time Critical care time (mins): 30
[2019-07-03] MEDS: Pantoprazole 80 MG in Sodium Chloride 0.9% 100 ML IVPB SCH (17:34)
[2019-07-03 18:08] LABS: Hemoglobin 9.3 g/dL (12.0-16.0)
[2019-07-03 18:27] LABS: Anion Gap 10 mmol/L (10-20); BUN (Urea Nitrogen) 70 mg/dL (9.8-20.1); Calc. Creatinine Clearance 232 mL/min (70-130); Calcium 8.7 mg/dL (7.8-10.44); Carbon Dioxide 20 mmol/L (23-31); Chloride 109 mmol/L (98-107); Estimated GFR-MDRD 74; Glucose 127 mg/dL (80-115); Potassium 5.3 mmol/L (3.5-5.1); Sodium 134 mmol/L (136-145)
[2019-07-03] MEDS: Amiodarone 200 MG TAB PO SCH (20:36)
[2019-07-03] MEDS: Miconazole 2% Vaginal Cream 45 GM TUBE TOP SCH (20:37)
[2019-07-04] MEDS: Dextrose 5 % And 0.9 % NaCl 1,000 ML IV SCH ×2 (00:27→18:05)
[2019-07-04 04:21] LABS: Band 9 % (5-11); Lymphocytes 6 % (21-51); MDiff Complete? YES; Mean Corpuscular HGB CONC 32.6 g/dL (32.0-36.0); Mean Corpuscular Hemoglobin 31.5 pg (27.0-31.0); Mean Corpuscular Volume 96.8 fL (78.0-98.0); Mean Platelet Volume 7.6 fL (7.4-10.4); Metamyelocyte 1 % (0-0); Monocytes 3 % (0-10); Neutrophil 81 % (42-75); Nucleated RBC 3 % (0); Platelet Count 355 thou/uL (130-400); Platelet Morphology Comment Appears Adequate; Red Blood Cell (RBC) Count 2.84 mill/uL (4.20-5.40); White Blood Cell (WBC) Count 22.2 thou/uL (4.8-10.8)
[2019-07-04 04:22] LABS: Anion Gap 10 mmol/L (10-20); BUN (Urea Nitrogen) 67 mg/dL (9.8-20.1); Calc. Creatinine Clearance 235 mL/min (70-130); Calcium 9.2 mg/dL (7.8-10.44); Carbon Dioxide 21 mmol/L (23-31); Chloride 110 mmol/L (98-107); Estimated GFR-MDRD 75; Glucose 110 mg/dL (80-115); Potassium 5.4 mmol/L (3.5-5.1); Sodium 136 mmol/L (136-145)
[2019-07-04] MEDS: metroNIDAZOLE 500 MG in Premix Bag 1 BAG IVPB SCH ×3 (06:19→21:33)
--- NOTE | 2019-07-04 08:35 | CON ---
DATE OF CONSULTATION: CHIEF COMPLAINT: Blood in stool. HISTORY OF PRESENT ILLNESS: Ms. Hugo is a 69-year-old woman who was admitted to the intensive care unit through the emergency room on June 27, 2019. She was admitted with sepsis and hypotension, thought to be secondary to possibly diverticulitis or panniculitis. She had vague left-sided abdominal pain on presentation. She does report some nausea and vomiting, but not in the last couple of days. She has been treated with antibiotics. She developed atrial fibrillation with rapid ventricular response and Cardiology has been following for that. She has been on enoxaparin. This afternoon, she developed 2 large liquidy black stools. She has no abdominal pain today. She has no nausea today. She has had some loose stools over the last few days prior to this, but she had non bloody brown stool last night. She only started with the loose stools after starting antibiotics here in the hospital. She has been evaluated by Cardiology and General surgery and Pulmonology. Gynecology saw her yesterday for vaginal bleeding. PAST MEDICAL HISTORY: Atrial fibrillation, hypertension, morbid obesity. She had colonoscopy by Dr. Godinez in 2012 with a 3 mm adenoma removed from the cecum. Diverticulosis was noted in sigmoid colon. PAST SURGICAL HISTORY: Appendectomy, cholecystectomy, I and D for uterine bleeding. FAMILY HISTORY: Negative for GI malignancy. SOCIAL HISTORY: No alcohol, tobacco, or drugs. She has been bedbound over the last couple of years related to morbid obesity. ALLERGIES: PENICILLIN, STATIN, TETANUS TOXOID. MEDICATIONS: Currently include, 1. Aspirin 81 mg daily. 2. Enoxaparin 180 mg twice daily. 3. Cefepime. 4. Hydrocortisone. 5. Metronidazole. 6. Monistat vaginal cream. 7. Tamsulosin. She has been on, REVIEW OF SYSTEMS: Negative x10 systems reviewed except as stated in history of present illness. PHYSICAL EXAMINATION: Vital Signs: Temperature is 98.6, pulse 91, blood pressure 102/52. General: She is in no acute distress. She is awake and alert. HEENT: Eyes have no scleral icterus. Oropharynx is clear without lesions. No cervical or supraclavicular lymphadenopathy. Lungs: Clear to auscultation bilaterally. Heart: Regular rate and rhythm without murmur. Abdomen: Soft, nontender, and nondistended. Bowel sounds are present. She is obese. Her weight is 460 pounds with a height of 66 inches. She does not have significant erythema or tenderness of the left abdomen currently. Extremities: 1+ pitting lower extremity edema. LABORATORIES: White blood cell count 17.5, hemoglobin 9.8, hemoglobin 2 days ago was 13.2, platelets 316. Creatinine 0.8, BUN 71. IMPRESSION: 1. Upper gastrointestinal bleed with 2 episodes of melena today. Her hemoglobin is decreased from 13.2 to 9.8. Her BUN is elevated. I viewed the liquidy black stool consistent with melena. 2. Atrial fibrillation requiring amiodarone for rate control. She has been started on anticoagulation and has been on enoxaparin 180 mg 2 times daily. 3. Sepsis syndrome with source potentially suspected to be diverticulitis on admission. Her abdominal pain is resolved now. She does not have any signs of peritonitis at this time. She appears to be responding appropriately with antibiotics as she did have diverticulitis. She is not a candidate for CT scan due to her body habitus and weight. Her blood cultures have been negative. RECOMMENDATIONS: 1. Hold enoxaparin. 2. Proton pump inhibitor drip. 3. Follow trend of her hemoglobin and transfuse as necessary. 4. If she continues to have bleeding despite holding the enoxaparin, then we will plan endoscopy. Job ID: [id number]
--- NOTE | 2019-07-04 08:55 | PRG ---
DATE OF SERVICE: 07/04/2019 SUBJECTIVE: This morning, she remains in the ICU, hypotensive. OBJECTIVE: VITAL SIGNS: The last blood pressure was 102/56, pulse 100, respirations 18, temperature is 98. CHEST: Decreased breath sounds. No wheezing. CARDIAC: Normal S1 and S2. No gallops. LABORATORY DATA: Creatinine is normal. BUN is 67. White count 20,000 and H and H are 9 and 27, platelet count 335. ASSESSMENT: Supraventricular tachycardia, morbid obesity, respiratory failure, hypertension, culture negative, vaginal bleeding. PLAN: From the Pulmonary standpoint of view, she was initiated on a stress dose steroids, I would continue that. Her cortisol level was low at 13. Broad-spectrum antibiotics on board. Supportive care, PT. Prognosis remains guarded. We will follow. Job ID: [id number]
[2019-07-04] MEDS ORDERED: Enoxaparin Sodium 100 MG/ML SYRINGE SC SCH (09:00)
[2019-07-04] MEDS: Aspirin 81 mg Enteric Coated Tablet PO SCH (09:11)
[2019-07-04] MEDS: Cefepime 1 GM in Sodium Chloride 0.9% 100 ML IVPB SCH ×2 (09:11→21:32)
[2019-07-04] MEDS: Amiodarone 200 MG TAB PO SCH (09:11)
[2019-07-04] MEDS: Hydrocortisone Sod Succ/PF 100 mg/2 ml Vial IVP SCH ×5 (09:12→23:15)
[2019-07-04] MEDS: Tamsulosin HCl 0.4 MG CAP PO SCH (09:13)
--- NOTE | 2019-07-04 09:20 | PRG ---
DATE OF SERVICE: 07/04/2019 SUBJECTIVE: Ms. Hugo was noted to have one more black bowel movement last night, this morning only a small red smear. She remains on pressors, still in atrial fibrillation with RVR. Her hemoglobin appears to have stabilized from yesterday afternoon, was 9.3, now 9.0. She has not received any transfusion. She remains on the PPI drip. OBJECTIVE: VITAL SIGNS: Pulse 130, irregular; blood pressure 96/47; 95% oxygen saturation on 2 L nasal cannula. GENERAL: Morbidly obese, critically ill. She is responsive to questioning, but quite drowsy. HEART: Irregular, tachycardia. LUNGS: Bibasilar crackles. No respiratory distress. ABDOMEN: Obese. Bowel sounds present. Nontender to palpation throughout. EXTREMITIES: 1+ pitting lower extremity edema. LABORATORY STUDIES: Hemoglobin 9.0, stable from yesterday afternoon; WBC up to 22.2; platelets 355. Sodium 136, potassium 5.4, BUN still elevated at 67, creatinine 0.77, and glucose 110. ASSESSMENT/PLAN: 1. Upper gastrointestinal bleeding. 2. Acute blood loss anemia. 3. Atrial fibrillation with rapid ventricular response. 4. Morbid obesity. 5. Sepsis syndrome on presentation. The patient had significant bleeding episode, it appears yesterday, but hemoglobin appears to have stabilized this morning, with no need for transfusion as of yet. BUN remains elevated, but overt bleeding seems to be slowing down. I agree with Dr. Yuen's impression that she is very high risk for any endoscopic procedure at this time, particularly from a cardiovascular perspective. I agree with current plan to continue to hold any anticoagulation including Lovenox, continue the PPI drip. Recheck H and H around noon. If significant further drop, we will need to consider upper endoscopy, but if she is holding steady, then we will stick with current management. Job ID: [id number]
[2019-07-04] MEDS ORDERED: Hydrocortisone Sod Succ/PF 100 mg/2 ml Vial IVP SCH (10:45)
[2019-07-04] MEDS: Pantoprazole 80 MG in Sodium Chloride 0.9% 100 ML IVPB SCH ×2 (11:40→23:18)
[2019-07-04 12:30] LABS: Hemoglobin 8.3 g/dL (12.0-16.0)
[2019-07-04] MEDS: Norepinephrine 8 MG in Dextrose 5% in Water 242 ML IVPB PRN (14:05)
[2019-07-04 15:50] LABS: ALV-art Gradient 74.915 (0-20); Actual Bicarbonate (HCO3a) 21.6 mEq/L (22-28); Base Excess (BEa) -4.5 mEq/L (-2.0 to +3.0); CO2 Tension 44.1 mmHg (35.0-45.0); Calcium, Ionized 1.36 mmol/L (1.12-1.30); Carboxyhemoglobin (COHb) 1.4 gm% (0.0-3.0); Hemoglobin (Hb) 8.3 g/dL (12.0-16.0); O2 Tension (PaO2) 69.6 mmHg (> 80.0); Potassium - ABG Lab 5.26 mmol/L (3.70-5.30); Puncture Site LRA; pH, Arterial 7.31 (7.35-7.45)
--- NOTE | 2019-07-04 15:55 | PDOC.CPN ---
- Subjective Date: 07/04/19 Time: 15:51 Interval history: She is more laboured with her breathing today. Sats are unchanged on 2L. No more melena or bleeding but her Hgb went slightly down to 8.3 from 9.0 today. Her amio drip is now off and she is on PO amio but her HR is slightly increased in the 100's to 110's. - Review of Systems General: denies: fever/chills, weight/appetite/sleep changes, night sweats, fatigue Respiratory: reports: exercise intolerance. denies: cough, congestion, shortness of breath Cardiovascular: denies: chest pain, palpitation, edema, paroxysmal nocturnal dyspnea, orthopnea Gastrointestinal: denies: nausea, vomiting, diarrhea, constipation, abd pain, GI bleeding Musculoskeletal: denies: pain, tenderness, stiffness, swelling, arthritis/ arthralgias Neurological: denies: numbness, syncope, seizure, weakness - Objective Allergies/Adverse Reactions: Allergies Allergy/AdvReac Type Severity Reaction Status Date / Time Penicillins Allergy Verified 06/13/19 13:56 Kcnjcqp-Oed-Cib Reductase Allergy Verified 06/13/19 13:56 Inhibitor tetanus toxoid, adsorbed Allergy Verified 06/13/19 13:56 Visit Medications: Current Medications Acetaminophen (Tylenol) 650 mg PO Q4H PRN PRN Reason: Headache/Fever/Mild Pain (1-3) Last Admin: 07/01/19 21:35 Dose: 650 mg Acetaminophen (Tylenol) 650 mg ID Q4H PRN PRN Reason: Headache/Fever/Mild Pain (1-3) Aspirin (Ecotrin) 81 mg PO QAM [facility] Last Admin: 07/04/19 09:11 Dose: 81 mg Cyclobenzaprine HCl (Flexeril) 5 mg PO TIDPRN PRN PRN Reason: Muscle Spasm Last Admin: 07/01/19 11:23 Dose: 5 mg Dextrose/Water (Dextrose 50%) 25 gm SLOW IVP PRN PRN PRN Reason: Hypoglycemia Glucagon (Glucagon) 1 mg IM PRN PRN PRN Reason: Hypoglycemia Hydrocortisone Sodium Succinate (Solu-Cortef) 50 mg IVP Q6H [facility] Last Admin: 07/04/19 10:41 Dose: Not Given Dextrose/Water (D5w) 1,000 mls @ 0 mls/hr IV .Q0M PRN PRN Reason: Hypoglycemia Norepinephrine Bitartrate 8 mg (/ Dextrose/Water) 250 mls @ 0 mls/hr IVPB INF PRN; Protocol PRN Reason: TO MAINTAIN MAP > 65 Last Admin: 07/04/19 14:05 Dose: 250 mls Potassium Chloride 40 meq/ (Sodium Chloride) 270 mls @ 135 mls/hr IVPB ASDIR PRN PRN Reason: FOR SERUM K+ 2.5 - 3.5 Potassium Chloride 40 meq/ (Device) 100 mls @ 50 mls/hr IVPB ASDIR PRN PRN Reason: FOR SERUM K+ 2.5 - 3.5 Magnesium Sulfate 1 gm/ Sodium (Chloride) 102 mls @ 102 mls/hr IV PRN PRN PRN Reason: MAG LEVEL 1.4 - 2.0 Magnesium Sulfate 2 gm/ Device 50 mls @ 50 mls/hr IVPB ASDIR PRN PRN Reason: MAGNESIUM < 1.4 Potassium Phosphate 9 mmol/ (Sodium Chloride) 103 mls @ 25.75 mls/hr IVPB ASDIR PRN PRN Reason: Phosphate 1.0-1.8 Potassium Phosphate 12 mmol/ (Sodium Chloride) 254 mls @ 63.5 mls/hr IV ASDIR PRN PRN Reason: Serum phosphate 0.5-0.9 Potassium Phosphate 15 mmol/ (Sodium Chloride) 255 mls @ 63.75 mls/hr IV ASDIR PRN PRN Reason: Serum Phos < 0.5 Cefepime HCl 1 gm/ Sodium (Chloride) 100 mls @ 200 mls/hr IVPB Q12HR [facility] Last Admin: 07/04/19 09:11 Dose: 100 mls Metronidazole 500 mg/ Device 100 mls @ 100 mls/hr IVPB Q8HR [facility] Last Admin: 07/04/19 14:04 Dose: 100 mls Dextrose/Sodium Chloride (D5 0.9% Ns) 1,000 mls @ 75 mls/hr IV .[id number] [facility] Last Admin: 07/04/19 00:27 Dose: 1,000 mls Pantoprazole Sodium 80 mg/ (Sodium Chloride) 100 mls @ 10 mls/hr IVPB INF [facility] Last Admin: 07/04/19 11:40 Dose: 100 mls Insulin Human Lispro (Humalog) 0 units SC .MILD SLIDING SCALE PRN PRN Reason: Mild Correctional Scale Magnesium Oxide (Magnesium Oxide) 400 mg PO BIDPRN PRN PRN Reason: FOR SERUM MAG 1.4 - 2.0 Last Admin: 06/29/19 05:55 Dose: 400 mg Magnesium Oxide (Magnesium Oxide) 800 mg PO PRN PRN PRN Reason: FOR SERUM MAG < 1.4 Miconazole Nitrate (Monistat 7 Vaginal 2% Cream) 0 gm TOP HS [facility] Last Admin: 07/03/19 20:37 Dose: 1 applic Miscellaneous Medication (Phos-Nak) 1 pkt PO TIDPRN PRN PRN Reason: FOR PHOS LEVEL 1.0 - 1.8 Miscellaneous Medication (Phos-Nak) 2 pkt PO TIDPRN PRN PRN Reason: FOR PHOS LEVEL 0.5 - 1.0 Ccu Electrolyte (Replacement Protocol) 0 each FS PRN PRN PRN Reason: FOR ELECTROLYTE REPLACEMENT Potassium Chloride (K-Dur) 40 meq PO ASDIR PRN PRN Reason: FOR SERUM K+ 2.5 - 3.5 Potassium Chloride (Klor-Con) 40 meq PER TUBE ASDIR PRN PRN Reason: FOR SERUM K+ 2.5-3.5 Sodium Chloride (Flush - Normal Saline) 10 ml IVF Q12HR [facility] Last Admin: 07/04/19 09:13 Dose: 10 ml Sodium Chloride (Flush - Normal Saline) 10 ml IVF PRN PRN PRN Reason: Saline Flush Tamsulosin HCl (Flomax) 0.4 mg PO DAILY [facility] Last Admin: 07/04/19 09:13 Dose: 0.4 mg Vital Signs & Weight: Vital Signs Temp Pulse Pulse BP BP Pulse Ox Pulse Ox 07/04/19 14:51 99 07/04/19 12:00 98.4 F 07/04/19 11:00 97 100 94/65 115/51 L 97 07/04/19 08:00 98.7 F 96 07/04/19 04:00 98.7 F Admit Weight 423 lb 4.6 oz Weight 458 lb 5.456 oz - Physical Exam General: other (mid distress.) HEENT: mucus membranes moist Neck: supple neck Cardiac: irregularly regular Lungs: decreased breath sounds Neuro: grossly intact Abdomen: active bowel sounds Extremities: 1+ LE edema, other: Skin: clear Musculoskeletal: no pain - Labs Result Diagrams: 07/04/19 12:09 07/04/19 03:30 - Telemetry Supraventricular conduction: atrial fibrillation - Assessment/Plan Assessment/Plan: 1. Afib RVR. Paroxysmal. Lenient rate control. 2. Vaginal bleeding 3. N/V, improved. 4. Hypotension 5. Morbid obesity 6. Severe deconditioning. 7. UGI bleeding. PLAN: - Will recheck hgb and if lower will transfuse 2 units with lasix in between as this may be the reason we cant get her off levophed. - Continue digoxin. - Still needing levophed for hypotension. Wean as tolerated. - May need to restart amio drip if cant control with current meds. - High risk for DVT given hypotension and bed ridden state and unable to give blood thinners due to possible GI bleeding with lovenox. - Will get repeat BNP.
[2019-07-04 16:39] LABS: Anisocytosis SLIGHT = 6-15 cells (100X) (0-5/hpf); Band 17 % (5-11); Eosinophils 1 % (0-10); Hemoglobin 8.1 g/dL (12.0-16.0); Lymphocytes 5 % (21-51); MDiff Complete? YES; Mean Corpuscular HGB CONC 33.3 g/dL (32.0-36.0); Mean Corpuscular Hemoglobin 32.1 pg (27.0-31.0); Mean Corpuscular Volume 96.4 fL (78.0-98.0); Monocytes 2 % (0-10); Neutrophil 75 % (42-75); Nucleated RBC 5 % (0); Platelet Count 328 thou/uL (130-400); Platelet Morphology Comment Appears Adequate; Polychromasia MARKED = >4 cells (100X) (0-2/hpf); RBC Distribution Width 14.8 % (11.5-14.5); Red Blood Cell (RBC) Count 2.51 mill/uL (4.20-5.40); White Blood Cell (WBC) Count 19.2 thou/uL (4.8-10.8)
[2019-07-04] MEDS ORDERED: Furosemide 20 MG/2 ML VIAL SLOW IVP SCH (17:30)
--- NOTE | 2019-07-04 17:34 | PDOC.HOSPP ---
- Subjective Encounter Date: 07/04/19 Encounter Time: 17:20 Subjective: f/u for resp failure, septic shock of unclear etiology on Cefepime/Flagyl but still requiring low-volume Levophed for persistent hypotension. Receiving Hydrocortisone IV for adrenal insufficiency. Remains lethargic per nursing. Weight increased 35lbs since admit. - Objective Vital Signs & Weight: Vital Signs (12 hours) Temp Pulse Pulse BP BP Pulse Ox Pulse Ox 07/04/19 16:00 98.7 F 07/04/19 14:51 99 07/04/19 12:00 98.4 F 07/04/19 11:00 97 100 94/65 115/51 L 97 07/04/19 08:00 98.7 F 96 Weight Admit Weight 423 lb 4.6 oz Weight 458 lb 5.456 oz Most Recent Monitor Data Heart Rate from ECG 121 NIBP 102/80 NIBP BP-Mean 87 Respiration from ECG 23 SpO2 96 I&O: 07/03/19 07/04/19 07/05/19 06:59 06:59 06:59 Intake Total 3531 2845 75 Output Total 1455 1635 711 Balance 2076 1210 -636 Result Diagrams: 07/04/19 16:06 07/04/19 03:30 Additional Labs: Accuchecks 07/04/19 07/04/19 07/04/19 16:13 11:40 06:12 POC Glucose 128 H 129 H 113 H 07/03/19 19:59 POC Glucose 124 H Radiology Reviewed by me: Yes (PCXR 07/02/19 = bilat pulm edema, effusions L> R) EKG Reviewed by me: Yes (Tele - A-fib in 110's) Hospitalist ROS - Medication Medications: Active Medications Generic Name Dose Route Start Last Admin Trade Name Freq PRN Reason Stop Dose Admin Acetaminophen 650 mg 06/27/19 21:04 07/01/19 21:35 Tylenol PO 650 mg Q4H PRN Administration Headache/Fever/Mild Pain (1-3) Aspirin 81 mg 06/29/19 09:00 07/04/19 09:11 Ecotrin PO 81 mg QAM RAS Administration Cyclobenzaprine HCl 5 mg 07/01/19 11:14 07/01/19 11:23 Flexeril PO 5 mg TIDPRN PRN Administration Muscle Spasm Hydrocortisone Sodium Succinate 50 mg 07/04/19 10:45 07/04/19 17:00 Solu-Cortef IVP 50 mg Q6H RAS Administration Norepinephrine Bitartrate 8 mg 250 mls @ 0 mls/hr 06/27/19 17:30 07/04/19 14: 05 / Dextrose/Water IVPB 250 mls INF PRN Administration TO MAINTAIN MAP > 65 Protocol As Directed Cefepime HCl 1 gm/ Sodium 100 mls @ 200 mls/hr 06/28/19 09:00 07/04/19 09:11 Chloride IVPB 100 mls Q12HR [facility] Administration Metronidazole 500 mg/ Device 100 mls @ 100 mls/hr 06/30/19 22:00 07/04/19 14: 04 IVPB 100 mls Q8HR [facility] Administration Dextrose/Sodium Chloride 1,000 mls @ 75 mls/hr 07/02/19 08:42 07/04/19 00:27 D5 0.9% Ns IV 1,000 mls .[id number] [facility] Administration Pantoprazole Sodium 80 mg/ 100 mls @ 10 mls/hr 07/03/19 17:00 07/04/19 11:40 Sodium Chloride IVPB 100 mls INF [facility] Administration Magnesium Oxide 400 mg 06/27/19 17:30 06/29/19 05:55 Magnesium Oxide PO 400 mg BIDPRN PRN Administration FOR SERUM MAG 1.4 - 2.0 Miconazole Nitrate 0 gm 06/30/19 21:00 07/03/19 20:37 Monistat 7 Vaginal 2% Cream TOP 1 applic HS [facility] Administration Sodium Chloride 10 ml 06/27/19 21:00 07/04/19 09:13 Flush - Normal Saline IVF 10 ml Q12HR [facility] Administration Tamsulosin HCl 0.4 mg 06/28/19 09:00 07/04/19 09:13 Flomax PO 0.4 mg DAILY RAS Administration - Exam General Appearance: ill appearing General - other findings: lethargic, mumbles a few words Eye: PERRL, anicteric sclera ENT: normocephalic atraumatic, no oropharyngeal lesions Neck: supple, symmetric, no JVD, no thyromegaly Heart: normal peripheral pulses, irregular Heart - other findings: S1, S2, tachycardic Respiratory - other findings: diminished in bases, basilar crackles Gastrointestinal: soft, non-tender, non-distended, normal bowel sounds, no palpable masses Gastrointestinal - other findings: obese Extremities - other findings: 3+ edema of bilat LE's Skin: normal turgor, no lesions Musculoskeletal: generalized weakness Psychiatric: oriented to person, flat affect, somnolent, lethargic Hosp A/P (1) Acute respiratory failure with hypoxia Code(s): J96.01 - ACUTE RESPIRATORY FAILURE WITH HYPOXIA Status: Acute Plan: Persistent, continue O2 support, Duonebs, IV Lasix (2) Acute combined systolic and diastolic congestive heart failure Code(s): I50.41 - ACUTE COMBINED SYSTOLIC AND DIASTOLIC (CONGESTIVE) HRT FAIL Status: Acute Plan: Lasix 20mg IV x 1 now, then daily, serial I/O's, Daily weight (3) Acute hyperkalemia Code(s): E87.5 - HYPERKALEMIA Status: Acute Plan: Stable, continue serial monitoring, consider CaCl IV (4) Septic shock Code(s): A41.9 - SEPSIS, UNSPECIFIED ORGANISM; R65.21 - SEVERE SEPSIS WITH SEPTIC SHOCK Status: Acute Plan: Suspected, continue Cefepime/Flagyl, wean off Levophed (5) Atrial fibrillation with RVR Code(s): I48.91 - UNSPECIFIED ATRIAL FIBRILLATION Status: Chronic Plan: Rate variable, continue rate-control with Digoxin, Amiodarone d/c'd (6) Acute metabolic encephalopathy Code(s): G93.41 - METABOLIC ENCEPHALOPATHY Status: Acute Plan: Likely multifactorial including uremia, deconditioning, hypoxia, prolonged hospitalization (7) Normocytic anemia Code(s): D64.9 - ANEMIA, UNSPECIFIED Status: Acute Plan: Suspected due to GI blood loss, limit NSAID's, anticoagulation, serial H/H, PPI , consider endoscopy - Plan continue antibiotics, PT/OT, social worker psychiatric, respiratory therapy Continue supportive mgmt Add Digoxin 0.125mg IV x 1 now Lasix 20mg IV x 1 now Check H/H with Platelets Wean Levophed as clinically tolerated AM lab: BMP, H/H
[2019-07-04] MEDS ORDERED: Digoxin 0.5 MG/2 ML AMP SLOW IVP SCH (17:45)
[2019-07-04 18:16] LABS: Hemoglobin 8.1 g/dL (12.0-16.0); Platelet Count 340 thou/uL (130-400)
[2019-07-04] MEDS: Miconazole 2% Vaginal Cream 45 GM TUBE TOP SCH (21:33)
[2019-07-05 04:54] LABS: #Eosinphils 0.3 thou/uL (0.0-0.7); #Lymphocytes 2.4 thou/uL (1.20-3.40); #Monocytes 1.4 thou/uL (0.11-0.59); #Neutrophils 14.9 thou/uL (1.40-6.50); %Basophils 0.2 % (0.0-1.0); %Eosinophils 1.4 % (0.0-10.0); %Lymphocytes 12.4 % (21.0-51.0); %Monocytes 7.4 % (0.0-10.0); %Neutrophils 78.5 % (42.0-75.0); Hemoglobin 7.6 g/dL (12.0-16.0); Mean Corpuscular HGB CONC 32.7 g/dL (32.0-36.0); Mean Corpuscular Hemoglobin 31.5 pg (27.0-31.0); Mean Corpuscular Volume 96.4 fL (78.0-98.0); Mean Platelet Volume 7.4 fL (7.4-10.4); Platelet Count 319 thou/uL (130-400); RBC Distribution Width 15.1 % (11.5-14.5); White Blood Cell (WBC) Count 18.9 thou/uL (4.8-10.8)
[2019-07-05] MEDS: Dextrose 5 % And 0.9 % NaCl 1,000 ML IV SCH ×2 (05:02→17:23)
[2019-07-05] MEDS: metroNIDAZOLE 500 MG in Premix Bag 1 BAG IVPB SCH ×3 (05:03→21:02)
[2019-07-05] MEDS: Hydrocortisone Sod Succ/PF 100 mg/2 ml Vial IVP SCH ×4 (05:03→22:47)
[2019-07-05 05:32] LABS: Anion Gap 9 mmol/L (10-20); BUN (Urea Nitrogen) 60 mg/dL (9.8-20.1); Calc. Creatinine Clearance 244 mL/min (70-130); Calcium 9.1 mg/dL (7.8-10.44); Carbon Dioxide 23 mmol/L (23-31); Chloride 113 mmol/L (98-107); Estimated GFR-MDRD 80; Glucose 98 mg/dL (80-115); Potassium 4.9 mmol/L (3.5-5.1); Sodium 140 mmol/L (136-145)
[2019-07-05] MEDS: Aspirin 81 mg Enteric Coated Tablet PO SCH (08:53)
[2019-07-05] MEDS: Cefepime 1 GM in Sodium Chloride 0.9% 100 ML IVPB SCH ×2 (08:53→21:02)
[2019-07-05] MEDS: Digoxin 0.5 MG/2 ML AMP SLOW IVP SCH (08:54)
[2019-07-05] MEDS: Tamsulosin HCl 0.4 MG CAP PO SCH (08:56)
--- NOTE | 2019-07-05 09:37 | PRG ---
DATE OF SERVICE: 07/05/2019 SUBJECTIVE: Ms. Hugo has not had any further melena, actually no bowel movement since yesterday afternoon. Her heart rate is still going up and down in atrial fibrillation. She has been otherwise more stable. She has had some continued spotty vaginal bleeding through this time. Hemoglobin did decline further from 9.0 down to 7.6 this morning. OBJECTIVE: VITAL SIGNS: Blood pressure is 101/49, heart rate is 100 and irregular, temperature is 98.5, and 97% oxygen saturation on non-rebreather. GENERAL: Alert, in good spirits, conversing well, in no distress. HEART: Irregular tachycardia. LUNGS: Bibasilar crackles. ABDOMEN: Obese, soft, nontender to palpation. EXTREMITIES: 1+ bilateral lower extremity edema. LABORATORY STUDIES: Hemoglobin 7.6, WBC 18.9, platelets 319. Sodium 140, potassium 4.9, BUN 60, creatinine 0.73. BNP is 173.1. ASSESSMENT AND PLAN: 1. Melena, overt gastrointestinal bleeding appears to be resolving. 2. Acute blood loss anemia. She has had significant hemoglobin decline over the past 3 days. 3. Vaginal bleeding. 4. Atrial fibrillation with rapid ventricular response. 5. Morbid obesity. 6. Sepsis syndrome on presentation. I had a long discussion with the patient today as well as her daughter, Angela over the phone. The patient almost certainly had significant upper gastrointestinal hemorrhage a couple of days ago, but the overt bleeding seems to have stopped. That being said, hemoglobin still trends down, but this is complicated by some ongoing vaginal bleeding she has had. She remains quite a high risk for any endoscopic procedure, and the patient and family would like to avoid this if possible. I think that is still okay for now, but we will need to continue to aggressively empirically treat with the PPI drip, which continues at this time. Continue to monitor H and H closely, and transfuse as needed. Dr. Pereira will be covering for GI this weekend. We will take it day by day on the decision of whether to perform endoscopy, please call anytime with questions or concerns. Job ID: [id number]
[2019-07-05] MEDS: Acetaminophen 325 MG TAB PO PRN ×2 (10:21→21:05)
[2019-07-05] MEDS: Pantoprazole 80 MG in Sodium Chloride 0.9% 100 ML IVPB SCH ×2 (10:22→21:37)
[2019-07-05] MEDS ORDERED: Furosemide 40 MG/4 ML VIAL SLOW IVP SCH (11:45)
--- NOTE | 2019-07-05 12:34 | PDOC.CPN ---
- Subjective Date: 07/05/19 Time: 12:33 Interval history: She is feeling very tired and SOB. Likely from anemia. No chest pain. No more melena. Still small amount of spotting from vaginal bleed. - Review of Systems General: reports: fatigue. denies: fever/chills, weight/appetite/sleep changes , night sweats Respiratory: reports: shortness of breath. denies: cough, congestion, exercise intolerance Cardiovascular: denies: chest pain, palpitation, edema, paroxysmal nocturnal dyspnea, orthopnea Gastrointestinal: denies: nausea, vomiting, diarrhea, constipation, abd pain, GI bleeding Musculoskeletal: denies: pain, tenderness, stiffness, swelling, arthritis/ arthralgias Neurological: denies: numbness, syncope, seizure, weakness - Objective Allergies/Adverse Reactions: Allergies Allergy/AdvReac Type Severity Reaction Status Date / Time Penicillins Allergy Verified 06/13/19 13:56 Nliqkce-Afk-Asx Reductase Allergy Verified 06/13/19 13:56 Inhibitor tetanus toxoid, adsorbed Allergy Verified 06/13/19 13:56 Visit Medications: Current Medications Acetaminophen (Tylenol) 650 mg PO Q4H PRN PRN Reason: Headache/Fever/Mild Pain (1-3) Last Admin: 07/05/19 10:21 Dose: 650 mg Acetaminophen (Tylenol) 650 mg GA Q4H PRN PRN Reason: Headache/Fever/Mild Pain (1-3) Aspirin (Ecotrin) 81 mg PO QAM [facility] Last Admin: 07/05/19 08:53 Dose: 81 mg Cyclobenzaprine HCl (Flexeril) 5 mg PO TIDPRN PRN PRN Reason: Muscle Spasm Last Admin: 07/01/19 11:23 Dose: 5 mg Dextrose/Water (Dextrose 50%) 25 gm SLOW IVP PRN PRN PRN Reason: Hypoglycemia Digoxin (Lanoxin) 0.25 mg SLOW IVP DAILY [facility] Last Admin: 07/05/19 08:54 Dose: 0.25 mg Furosemide (Lasix) 40 mg SLOW IVP WILLCALL [facility] Stop: 07/05/19 19:00 Glucagon (Glucagon) 1 mg IM PRN PRN PRN Reason: Hypoglycemia Hydrocortisone Sodium Succinate (Solu-Cortef) 50 mg IVP Q6H [facility] Last Admin: 07/05/19 10:27 Dose: 50 mg Dextrose/Water (D5w) 1,000 mls @ 0 mls/hr IV .Q0M PRN PRN Reason: Hypoglycemia Norepinephrine Bitartrate 8 mg (/ Dextrose/Water) 250 mls @ 0 mls/hr IVPB INF PRN; Protocol PRN Reason: TO MAINTAIN MAP > 65 Last Admin: 07/04/19 14:05 Dose: 250 mls Potassium Chloride 40 meq/ (Sodium Chloride) 270 mls @ 135 mls/hr IVPB ASDIR PRN PRN Reason: FOR SERUM K+ 2.5 - 3.5 Potassium Chloride 40 meq/ (Device) 100 mls @ 50 mls/hr IVPB ASDIR PRN PRN Reason: FOR SERUM K+ 2.5 - 3.5 Magnesium Sulfate 1 gm/ Sodium (Chloride) 102 mls @ 102 mls/hr IV PRN PRN PRN Reason: MAG LEVEL 1.4 - 2.0 Magnesium Sulfate 2 gm/ Device 50 mls @ 50 mls/hr IVPB ASDIR PRN PRN Reason: MAGNESIUM < 1.4 Potassium Phosphate 9 mmol/ (Sodium Chloride) 103 mls @ 25.75 mls/hr IVPB ASDIR PRN PRN Reason: Phosphate 1.0-1.8 Potassium Phosphate 12 mmol/ (Sodium Chloride) 254 mls @ 63.5 mls/hr IV ASDIR PRN PRN Reason: Serum phosphate 0.5-0.9 Potassium Phosphate 15 mmol/ (Sodium Chloride) 255 mls @ 63.75 mls/hr IV ASDIR PRN PRN Reason: Serum Phos < 0.5 Cefepime HCl 1 gm/ Sodium (Chloride) 100 mls @ 200 mls/hr IVPB Q12HR [facility] Last Admin: 07/05/19 08:53 Dose: 100 mls Metronidazole 500 mg/ Device 100 mls @ 100 mls/hr IVPB Q8HR [facility] Last Admin: 07/05/19 05:03 Dose: 100 mls Dextrose/Sodium Chloride (D5 0.9% Ns) 1,000 mls @ 75 mls/hr IV .[id number] [facility] Last Admin: 07/05/19 05:02 Dose: 1,000 mls Pantoprazole Sodium 80 mg/ (Sodium Chloride) 100 mls @ 10 mls/hr IVPB INF [facility] Last Admin: 07/05/19 10:22 Dose: 100 mls Insulin Human Lispro (Humalog) 0 units SC .MILD SLIDING SCALE PRN PRN Reason: Mild Correctional Scale Magnesium Oxide (Magnesium Oxide) 400 mg PO BIDPRN PRN PRN Reason: FOR SERUM MAG 1.4 - 2.0 Last Admin: 06/29/19 05:55 Dose: 400 mg Magnesium Oxide (Magnesium Oxide) 800 mg PO PRN PRN PRN Reason: FOR SERUM MAG < 1.4 Miconazole Nitrate (Monistat 7 Vaginal 2% Cream) 0 gm TOP [facility] Last Admin: 07/04/19 21:33 Dose: 1 applic Miscellaneous Medication (Phos-Nak) 1 pkt PO TIDPRN PRN PRN Reason: FOR PHOS LEVEL 1.0 - 1.8 Miscellaneous Medication (Phos-Nak) 2 pkt PO TIDPRN PRN PRN Reason: FOR PHOS LEVEL 0.5 - 1.0 Ccu Electrolyte (Replacement Protocol) 0 each FS PRN PRN PRN Reason: FOR ELECTROLYTE REPLACEMENT Potassium Chloride (K-Dur) 40 meq PO ASDIR PRN PRN Reason: FOR SERUM K+ 2.5 - 3.5 Potassium Chloride (Klor-Con) 40 meq PER TUBE ASDIR PRN PRN Reason: FOR SERUM K+ 2.5-3.5 Sodium Chloride (Flush - Normal Saline) 10 ml IVF Q12HR [facility] Last Admin: 07/05/19 08:55 Dose: 10 ml Sodium Chloride (Flush - Normal Saline) 10 ml IVF PRN PRN PRN Reason: Saline Flush Tamsulosin HCl (Flomax) 0.4 mg PO DAILY [facility] Last Admin: 07/05/19 08:56 Dose: 0.4 mg Vital Signs & Weight: Vital Signs Temp Pulse Resp Pulse Ox 07/05/19 08:54 104 H 07/05/19 08:00 98.5 F 97 07/05/19 04:00 97.6 F 07/05/19 02:16 83 18 99 Admit Weight 423 lb 4.6 oz Weight 455 lb 11.128 oz - Physical Exam General: alert & oriented x3 HEENT: mucus membranes moist Neck: supple neck Cardiac: irregularly regular Lungs: clear to auscultation Neuro: grossly intact Abdomen: active bowel sounds Extremities: no edema Skin: clear Musculoskeletal: no pain - Labs Result Diagrams: 07/05/19 04:00 07/05/19 04:00 - Telemetry Supraventricular conduction: atrial fibrillation - Assessment/Plan Assessment/Plan: 1. Afib RVR. Paroxysmal. Lenient rate control. 2. Vaginal bleeding 3. N/V, improved. 4. Hypotension 5. Morbid obesity 6. Severe deconditioning. 7. UGI bleeding. 8. Acute blood loss anemia PLAN: - Hgb at 7.6, she has lost about 10 units total. Will transfuse 2 units PRBC's. - Continue digoxin only for rate control. Hopefully will feel better and more rate controlled with higher Hgb. - Will follow.
--- NOTE | 2019-07-05 15:59 | PRG ---
DATE OF SERVICE: 07/05/2019 SUBJECTIVE: Ms. Hugo, I am told, looks a lot better than she looked yesterday. She is much more alert. I have reminded the nurses that whenever she naps, she needs to wear her BiPAP. Unfortunately, she will not be able to get a sleep study for some time, given the coronavirus situation. PHYSICAL EXAMINATION: VITAL SIGNS: Heart rate , blood pressure , respiratory rate . LUNGS: Clear. HEART: Regular rhythm. ABDOMEN: Soft. EXTREMITIES: LABORATORY: White count . Sodium 140, potassium 4.9, chloride 113, , BUN 60, creatinine 0.73. IMPRESSION: 1. Life-threatening obesity with likely obesity hypoventilation syndrome. 2. Tachycardia. 3. .. 4. Gastrointestinal and vaginal bleeding. 5. Relative . supportive care in the critical care unit. Job ID: [id number]
--- NOTE | 2019-07-05 16:22 | PDOC.PALCO ---
Palliative Care Consult - Consult Details Requesting Physician: Dr Xiao Reason for Consult: assistance with communication prognosis/disease, family support - Pertinent HPI 69 year old morbidly obese female who had an onset of vomiting and hematuria for two weeks that did not have any mitigating factors. Became lethargic and family called ems for transport to the hospital. Evaluated in the emergency room and was found with an elevated K and hypotension. Admitted to IMCU for medical management and higher level of care. Stable, with slow improvement to baseline. At home patient has been bedbound secondary to morbid obesity. Dependent for all ADL"s. - Pertinent PMH Afib, HTN, Morbid Obesity - Social History Smoking Status: Never smoker Smoking: no tobacco exposure Alcohol Use: none Drug Use History: none Living Situation: independent - Medications MAR Reviewed: Yes - Allergies Allergies/Adverse Reactions: Allergies Allergy/AdvReac Type Severity Reaction Status Date / Time Penicillins Allergy Verified 06/13/19 13:56 Fahukxp-Qty-Pam Reductase Allergy Verified 06/13/19 13:56 Inhibitor tetanus toxoid, adsorbed Allergy Verified 06/13/19 13:56 - Subjective Awake, working with PT. Denies complaints at time of assessment. States "I Just want to see my family." - ROS Constitutional: alert, weakness Eyes: other (denies visual changes) ENT: other (denies throat irritation, congestion) Respiratory: shortness of breath Cardiology: edema Gastrointestinal: other (negative today for nausea, vomiting) Musculoskeletal: limited mobility Skin: other (Negative for rash, lesions) Psychological: other (negative for memory changes, depression) - Objective Vital Signs: Vital Signs - Most Recent Temp Pulse Resp BP Pulse Ox 98.4 F 87 20 130/63 98 07/05/19 15:08 07/05/19 15:08 07/05/19 15:08 07/05/19 13:57 07/05/19 15:08 Palliative Performance Scale: 30 - Physical Exam Constitutional: ill appearing, mild distress HEENT: EOMI, moist MMs, sclera anicteric Respiratory: diminished lung sound, labored respirations Cardiovascular: irregular Gastrointestinal: soft Genitourinary: bettencourt catheter Musculoskeletal: no cyanosis, diffuse muscle atrophy Neurology: moves all 4 limbs Skin: cap refill <2 seconds, fragile Psychiatric: A&O x 3, normal mood - Problem List (1) Morbid obesity Code(s): E66.01 - MORBID (SEVERE) OBESITY DUE TO EXCESS CALORIES Current Visit : Yes Status: Acute (2) Palliative care encounter Code(s): Z51.5 - ENCOUNTER FOR PALLIATIVE CARE Current Visit: Yes Status: Acute (3) Acute combined systolic and diastolic congestive heart failure Code(s): I50.41 - ACUTE COMBINED SYSTOLIC AND DIASTOLIC (CONGESTIVE) HRT FAIL Current Visit: Yes Status: Acute (4) Acute respiratory failure with hypoxia Code(s): J96.01 - ACUTE RESPIRATORY FAILURE WITH HYPOXIA Current Visit: Yes Status: Acute (5) Normocytic anemia Code(s): D64.9 - ANEMIA, UNSPECIFIED Current Visit: Yes Status: Acute (6) Atrial fibrillation with RVR Code(s): I48.91 - UNSPECIFIED ATRIAL FIBRILLATION Current Visit: Yes Status : Chronic - Plan/Recommendations Plan: Palliative Care introduced to patient and family. Family frustrated that "they can not see their mom". Therapeutic listening and emotional support, encouraged to face time and acknowledged their frustration. Goal of care is to return to home setting and remain with all aggressive measures in place, continue with PT to gain strength. Patient states the most important thing to her is her family. Joie Villa broaching machine repairer also seeing patient, please refer to her notes in note section. [50] minutes spent on this encounter with >50% of the time in counseling and coordination of care. Thank you for this very appropriate consult.
--- NOTE | 2019-07-05 17:02 | PDOC.HOSPP ---
- Subjective Encounter Date: 07/05/19 Encounter Time: 17:00 Subjective: f/u for A-fib RVR, volume overload, septic shock on Levophed/Cefepime/ Metronidazole. Typed and crossed for 2u PRBC's today. Overall feels better today and more alert. Tolerated clear liquids and Ensure. - Objective Vital Signs & Weight: Vital Signs (12 hours) Temp Pulse Pulse Pulse Pulse Resp BP 07/05/19 16:00 98.4 F 07/05/19 15:08 98.4 F 87 20 07/05/19 13:57 85 65 130/63 07/05/19 12:00 98.4 F 07/05/19 08:54 104 H 07/05/19 08:00 98.5 F BP Pulse Ox 07/05/19 16:00 07/05/19 15:08 98 07/05/19 13:57 91/53 L 07/05/19 12:00 07/05/19 08:54 07/05/19 08:00 97 Weight Admit Weight 423 lb 4.6 oz Weight 455 lb 11.128 oz Most Recent Monitor Data Heart Rate from ECG 97 NIBP 97/54 NIBP BP-Mean 68 Respiration from ECG 23 SpO2 98 I&O: 07/04/19 07/05/19 07/06/19 06:59 06:59 06:59 Intake Total 2845 2484.8 237 Output Total 1635 2256 671 Balance 1210 228.8 -434 Result Diagrams: 07/05/19 04:00 07/05/19 04:00 Additional Labs: Accuchecks 07/05/19 07/05/19 07/04/19 04:08 00:51 21:35 POC Glucose 113 H 113 H 128 H Laboratory Tests 07/04/19 07/04/19 07/04/19 03:30 12:09 16:06 WBC 22.2 H 19.2 H Hgb 8.3 L 8.1 L 07/04/19 18:02 WBC Hgb 8.1 L EKG Reviewed by me: Yes (Tele - A-fib in 90's) Hospitalist ROS - Medication Medications: Active Medications Generic Name Dose Route Start Last Admin Trade Name Freq PRN Reason Stop Dose Admin Acetaminophen 650 mg 06/27/19 21:04 07/05/19 10:21 Tylenol PO 650 mg Q4H PRN Administration Headache/Fever/Mild Pain (1-3) Aspirin 81 mg 06/29/19 09:00 07/05/19 08:53 Ecotrin PO 81 mg QAM RAS Administration Cyclobenzaprine HCl 5 mg 07/01/19 11:14 07/01/19 11:23 Flexeril PO 5 mg TIDPRN PRN Administration Muscle Spasm Digoxin 0.25 mg 07/05/19 09:00 07/05/19 08:54 Lanoxin SLOW IVP 0.25 mg DAILY [facility] Administration Hydrocortisone Sodium Succinate 50 mg 07/04/19 10:45 07/05/19 10:27 Solu-Cortef IVP 50 mg Q6H RAS Administration Norepinephrine Bitartrate 8 mg 250 mls @ 0 mls/hr 06/27/19 17:30 07/04/19 14: 05 / Dextrose/Water IVPB 250 mls INF PRN Administration TO MAINTAIN MAP > 65 Protocol As Directed Cefepime HCl 1 gm/ Sodium 100 mls @ 200 mls/hr 06/28/19 09:00 07/05/19 08:53 Chloride IVPB 100 mls Q12HR [facility] Administration Metronidazole 500 mg/ Device 100 mls @ 100 mls/hr 06/30/19 22:00 07/05/19 14: 15 IVPB 100 mls Q8HR [facility] Administration Dextrose/Sodium Chloride 1,000 mls @ 75 mls/hr 07/02/19 08:42 07/05/19 05:02 D5 0.9% Ns IV 1,000 mls .[id number] RAS Administration Pantoprazole Sodium 80 mg/ 100 mls @ 10 mls/hr 07/03/19 17:00 07/05/19 10:22 Sodium Chloride IVPB 100 mls INF RAS Administration Magnesium Oxide 400 mg 06/27/19 17:30 06/29/19 05:55 Magnesium Oxide PO 400 mg BIDPRN PRN Administration FOR SERUM MAG 1.4 - 2.0 Miconazole Nitrate 0 gm 06/30/19 21:00 07/04/19 21:33 Monistat 7 Vaginal 2% Cream TOP 1 applic HS RAS Administration Sodium Chloride 10 ml 06/27/19 21:00 07/05/19 08:55 Flush - Normal Saline IVF 10 ml Q12HR [facility] Administration Tamsulosin HCl 0.4 mg 06/28/19 09:00 07/05/19 08:56 Flomax PO 0.4 mg DAILY [facility] Administration - Exam General Appearance: awake alert General - other findings: speaks in 3-5 word sentences Eye: PERRL, anicteric sclera ENT: normocephalic atraumatic, no oropharyngeal lesions, dry oral mucosa Neck: supple, symmetric, no JVD, no thyromegaly Heart: no murmur, no gallops, no rubs, normal peripheral pulses, irregular Heart - other findings: S1, S2 Respiratory: tachypneic Respiratory - other findings: diminished bilat, few rhonchi Gastrointestinal: soft, non-tender, non-distended, normal bowel sounds, no palpable masses Gastrointestinal - other findings: obese Extremities - other findings: 3+ edema of BLE Skin: normal turgor Neurological: cranial nerve grossly intact, no new deficit Musculoskeletal: generalized weakness Psychiatric: A&O x 3, flat affect Hosp A/P (1) Acute respiratory failure with hypoxia Code(s): J96.01 - ACUTE RESPIRATORY FAILURE WITH HYPOXIA Status: Acute Plan: Multifactorial, nocturnal BiPAP, IV Lasix (2) Acute combined systolic and diastolic congestive heart failure Code(s): I50.41 - ACUTE COMBINED SYSTOLIC AND DIASTOLIC (CONGESTIVE) HRT FAIL Status: Acute Plan: IV Lasix, serial I/O's, Daily weight (3) Acute hyperkalemia Code(s): E87.5 - HYPERKALEMIA Status: Acute Plan: Improving, continue Lasix, serial K+ monitoring (4) Septic shock Code(s): A41.9 - SEPSIS, UNSPECIFIED ORGANISM; R65.21 - SEVERE SEPSIS WITH SEPTIC SHOCK Status: Acute (5) Atrial fibrillation with RVR Code(s): I48.91 - UNSPECIFIED ATRIAL FIBRILLATION Status: Chronic Plan: Rate improved, continue Digoxin 0.25mg IV daily (6) Acute metabolic encephalopathy Code(s): G93.41 - METABOLIC ENCEPHALOPATHY Status: Acute Plan: Improved, continue pulmonary and metabolic support (7) Normocytic anemia Code(s): D64.9 - ANEMIA, UNSPECIFIED Status: Acute Plan: T&C for 2u PRBC's today, serial H/H - Plan plan discussed w/ family, continue antibiotics, PT/OT, social director, speech therapy, respiratory therapy Consults: Palliative Care Continue supportive mgmt Continue Digoxin 0.25mg IV daily Lasix 20mg IV daily Decrease IVF's 50ml/h PT for mobilization Transfuse 2u PRBC's today Wean Levophed as clinically tolerated Advance diet AM lab: BMP, CBC
[2019-07-05] MEDS: Miconazole 2% Vaginal Cream 45 GM TUBE TOP SCH (21:37)
[2019-07-06] MEDS: Hydrocortisone Sod Succ/PF 100 mg/2 ml Vial IVP SCH ×4 (04:48→22:38)
[2019-07-06] MEDS: Acetaminophen 325 MG TAB PO PRN ×2 (04:48→20:37)
[2019-07-06] MEDS: Dextrose 5 % And 0.9 % NaCl 1,000 ML IV SCH (05:01)
[2019-07-06] MEDS: metroNIDAZOLE 500 MG in Premix Bag 1 BAG IVPB SCH ×3 (05:01→22:38)
[2019-07-06 05:23] LABS: Band 6 % (5-11); Hemoglobin 9.9 g/dL (12.0-16.0); Lymphocytes 4 % (21-51); MDiff Complete? YES; Mean Corpuscular HGB CONC 33.1 g/dL (32.0-36.0); Mean Corpuscular Hemoglobin 31.9 pg (27.0-31.0); Mean Corpuscular Volume 96.5 fL (78.0-98.0); Mean Platelet Volume 7.3 fL (7.4-10.4); Monocytes 6 % (0-10); Neutrophil 84 % (42-75); Nucleated RBC 16 % (0); Platelet Count 337 thou/uL (130-400); Polychromasia SLIGHT = 2-3 cells (100X) (0-2/hpf); RBC Distribution Width 14.6 % (11.5-14.5); Red Blood Cell (RBC) Count 3.09 mill/uL (4.20-5.40); White Blood Cell (WBC) Count 18.6 thou/uL (4.8-10.8)
[2019-07-06 05:37] LABS: Anion Gap 12 mmol/L (10-20); BUN (Urea Nitrogen) 52 mg/dL (9.8-20.1); Calc. Creatinine Clearance 235 mL/min (70-130); Calcium 9.9 mg/dL (7.8-10.44); Carbon Dioxide 22 mmol/L (23-31); Chloride 114 mmol/L (98-107); Estimated GFR-MDRD 76; Glucose 105 mg/dL (80-115); Potassium 4.7 mmol/L (3.5-5.1); Sodium 143 mmol/L (136-145)
[2019-07-06] MEDS: Pantoprazole 80 MG in Sodium Chloride 0.9% 100 ML IVPB SCH ×2 (06:10→18:29)
[2019-07-06] MEDS: Cefepime 1 GM in Sodium Chloride 0.9% 100 ML IVPB SCH ×2 (08:46→20:29)
[2019-07-06] MEDS: Aspirin 81 mg Enteric Coated Tablet PO SCH (08:46)
[2019-07-06] MEDS: Digoxin 0.5 MG/2 ML AMP SLOW IVP SCH (08:47)
[2019-07-06] MEDS: Tamsulosin HCl 0.4 MG CAP PO SCH (08:48)
[2019-07-06] MEDS ORDERED: Furosemide 20 MG/2 ML VIAL SLOW IVP SCH (09:30)
--- NOTE | 2019-07-06 13:42 | PRG ---
DATE OF SERVICE: 07/06/2019 SUBJECTIVE: Syeda Hugo says she is feeling better. OBJECTIVE: VITAL SIGNS: She is afebrile. Heart rate 113, blood pressure 104/69, and respiratory rate in the 20s. LUNGS: Clear. HEART: Regular rhythm. ABDOMEN: Massive. EXTREMITIES: Massive. LABORATORY DATA: White count 18.6, hemoglobin 9.9, and platelets 337. Sodium 143, potassium 4.7, chloride 114, bicarb 22, BUN 52, and creatinine 0.76. IMPRESSION: 1. Obesity hypoventilation. She needs to continue to sleep with bilevel positive airway pressure. 2. Life-threatening obesity. 3. Deconditioning. 4. Gastrointestinal bleed. 5. Atrial fibrillation. PLAN: Continue supportive care. Transfuse as needed. Increase her activity. Transfer out of critical care unit seems reasonable. Job ID: [id number]
--- NOTE | 2019-07-06 17:20 | PDOC.HOSPP ---
- Subjective Encounter Date: 07/06/19 Encounter Time: 17:10 Subjective: f/u for septic shock/CHF/resp failure on current Cefepime/Flagyl. States feeling better overall. BiPAP nocturnally with 3L via NC for daytime. - Objective Vital Signs & Weight: Vital Signs (12 hours) Temp Pulse Pulse BP Pulse Ox Pulse Ox Pulse Ox 07/06/19 15:34 96.6 F L 07/06/19 14:30 92 114/81 94 L 95 07/06/19 14:00 98 07/06/19 12:00 97.8 F 07/06/19 08:47 111 H 07/06/19 08:00 98.4 F 97 Weight Admit Weight 423 lb 4.6 oz Weight 456 lb 5.71 oz Most Recent Monitor Data Heart Rate from ECG 90 NIBP 120/62 NIBP BP-Mean 81 Respiration from ECG 17 SpO2 93 I&O: 07/05/19 07/06/19 07/07/19 06:59 06:59 06:59 Intake Total 2484.8 2809 580 Output Total 2256 2266 495 Balance 228.8 543 85 Result Diagrams: 07/06/19 04:00 07/06/19 04:00 Additional Labs: Accuchecks 07/06/19 07/06/19 07/05/19 11:17 00:35 21:04 POC Glucose 196 H 100 110 07/05/19 07/05/19 07/05/19 16:09 13:50 08:09 POC Glucose 98 107 105 Laboratory Tests 07/04/19 07/04/19 07/04/19 03:30 12:09 16:06 WBC 22.2 H 19.2 H Hgb 8.3 L 8.1 L 07/04/19 18:02 WBC Hgb 8.1 L EKG Reviewed by me: Yes (Tele - A-fib in 90's) Hospitalist ROS - Medication Medications: Active Medications Generic Name Dose Route Start Last Admin Trade Name Freq PRN Reason Stop Dose Admin Acetaminophen 650 mg 06/27/19 21:04 07/06/19 04:48 Tylenol PO 650 mg Q4H PRN Administration Headache/Fever/Mild Pain (1-3) Aspirin 81 mg 06/29/19 09:00 07/06/19 08:46 Ecotrin PO 81 mg QAM RAS Administration Cyclobenzaprine HCl 5 mg 07/01/19 11:14 07/01/19 11:23 Flexeril PO 5 mg TIDPRN PRN Administration Muscle Spasm Digoxin 0.25 mg 07/05/19 09:00 07/06/19 08:47 Lanoxin SLOW IVP 0.25 mg DAILY RAS Administration Hydrocortisone Sodium Succinate 50 mg 07/04/19 10:45 07/06/19 16:23 Solu-Cortef IVP 50 mg Q6H RAS Administration Norepinephrine Bitartrate 8 mg 250 mls @ 0 mls/hr 06/27/19 17:30 07/04/19 14: 05 / Dextrose/Water IVPB 250 mls INF PRN Administration TO MAINTAIN MAP > 65 Protocol As Directed Cefepime HCl 1 gm/ Sodium 100 mls @ 200 mls/hr 06/28/19 09:00 07/06/19 08:46 Chloride IVPB 100 mls Q12HR RAS Administration Metronidazole 500 mg/ Device 100 mls @ 100 mls/hr 06/30/19 22:00 07/06/19 16: 23 IVPB 100 mls Q8HR RAS Administration Dextrose/Sodium Chloride 1,000 mls @ 75 mls/hr 07/02/19 08:42 07/06/19 05:01 D5 0.9% Ns IV 1,000 mls .[id number] RAS Administration Pantoprazole Sodium 80 mg/ 100 mls @ 10 mls/hr 07/03/19 17:00 07/06/19 06:10 Sodium Chloride IVPB 100 mls INF RAS Administration Magnesium Oxide 400 mg 06/27/19 17:30 06/29/19 05:55 Magnesium Oxide PO 400 mg BIDPRN PRN Administration FOR SERUM MAG 1.4 - 2.0 Miconazole Nitrate 0 gm 06/30/19 21:00 07/05/19 21:37 Monistat 7 Vaginal 2% Cream TOP 1 applic HS RAS Administration Sodium Chloride 10 ml 06/27/19 21:00 07/06/19 08:48 Flush - Normal Saline IVF 10 ml Q12HR RAS Administration Tamsulosin HCl 0.4 mg 06/28/19 09:00 07/06/19 08:48 Flomax PO 0.4 mg DAILY RAS Administration - Exam General Appearance: awake alert General - other findings: responds to questions ENT: normocephalic atraumatic, no oropharyngeal lesions Neck: supple, symmetric, no JVD, no thyromegaly, no lymphadenopathy Heart: no gallops, no rubs, normal peripheral pulses, irregular Heart - other findings: S1, S2 Respiratory - other findings: diminished in bases, few scattered coarse sounds Gastrointestinal: soft, non-tender, non-distended, normal bowel sounds Gastrointestinal - other findings: obese Extremities: no cyanosis Extremities - other findings: 3+ edema BLE's Skin: normal turgor, no lesions Neurological: cranial nerve grossly intact, no new deficit Musculoskeletal: generalized weakness Psychiatric: oriented to person, oriented to place Hosp A/P (1) Acute respiratory failure with hypoxia Code(s): J96.01 - ACUTE RESPIRATORY FAILURE WITH HYPOXIA Status: Acute Plan: Continue O2 supplementation with nocturnal BiPAP, mild improvement (2) Acute combined systolic and diastolic congestive heart failure Code(s): I50.41 - ACUTE COMBINED SYSTOLIC AND DIASTOLIC (CONGESTIVE) HRT FAIL Status: Acute Plan: Lasix 20mg IV daily, monitor I/O's, Daily weight (3) Acute hyperkalemia Code(s): E87.5 - HYPERKALEMIA Status: Acute (4) Septic shock Code(s): A41.9 - SEPSIS, UNSPECIFIED ORGANISM; R65.21 - SEVERE SEPSIS WITH SEPTIC SHOCK Status: Acute Plan: Resolving (5) Atrial fibrillation with RVR Code(s): I48.91 - UNSPECIFIED ATRIAL FIBRILLATION Status: Chronic Plan: Rate-controlled currently, continue Digoxin (6) Acute metabolic encephalopathy Code(s): G93.41 - METABOLIC ENCEPHALOPATHY Status: Acute (7) Normocytic anemia Code(s): D64.9 - ANEMIA, UNSPECIFIED Status: Acute Plan: s/p 1u PRBC's, serial H/H - Plan continue antibiotics, PT/OT, social services analyst, respiratory therapy, DVT proph w/ SCDs Continue supportive mgmt Continue Digoxin 0.25mg IV daily Lasix 20mg IV daily Decrease IVF's 50ml/h PT for mobilization s/p 1u PRBC's Advance diet AM lab: BMP, Digoxin level
[2019-07-06] MEDS: Miconazole 2% Vaginal Cream 45 GM TUBE TOP SCH (20:29)
[2019-07-07] MEDS: Pantoprazole 80 MG in Sodium Chloride 0.9% 100 ML IVPB SCH ×2 (04:09→15:01)
[2019-07-07 04:47] LABS: Anion Gap 8 mmol/L (10-20); BUN (Urea Nitrogen) 48 mg/dL (9.8-20.1); Calc. Creatinine Clearance 235 mL/min (70-130); Calcium 9.9 mg/dL (7.8-10.44); Carbon Dioxide 25 mmol/L (23-31); Chloride 114 mmol/L (98-107); Estimated GFR-MDRD 76; Glucose 112 mg/dL (80-115); Potassium 4.8 mmol/L (3.5-5.1); Sodium 142 mmol/L (136-145)
[2019-07-07 04:48] LABS: Digoxin 1.15 ng/mL (0.8-2.0)
--- NOTE | 2019-07-07 05:11 | PRG ---
DATE OF SERVICE: 07/06/2019 This is a cross coverage for Dr. Jimy Godinez. SUBJECTIVE: Ms. Landa is a 69-year-old morbidly obese white female hospitalized with nausea, vomiting, and diarrhea. The patient has history of vaginal bleeding off and on. The patient was on high dose of Lovenox. The patient had some black tarry stools with drop in blood count. She was seen by Dr. Jimy Godinez. Recommendation was to stop the Lovenox and give IV done well overnight. She has had no stool today. She is passing through the vagina. She is tolerating full liquid diet. No nausea. LABORATORY DATA: Her blood count today, WBC 18,600, hemoglobin is 9.9, , MCV 96.5, platelet count 337,000, . Chem-7 today is normal. BUN is 52, creatinine is 0.76. Lytes are normal. OBJECTIVE: GENERAL: She is morbidly obese, appears comfortable. . VITAL SIGNS: Afebrile, pulse is 80, blood pressure . RECOMMENDATION: 1. Advance diet to mechanical soft diet. 2. Follow . 3. We will hold bleeding appears to have stopped. Job ID: [id number]
[2019-07-07] MEDS: Hydrocortisone Sod Succ/PF 100 mg/2 ml Vial IVP SCH ×4 (05:39→21:04)
[2019-07-07] MEDS: Levothyroxine Sodium 50 MCG TAB PO SCH (05:39)
[2019-07-07] MEDS: metroNIDAZOLE 500 MG in Premix Bag 1 BAG IVPB SCH ×3 (05:40→21:02)
[2019-07-07] MEDS: Cefepime 1 GM in Sodium Chloride 0.9% 100 ML IVPB SCH ×2 (08:24→21:04)
[2019-07-07] MEDS: Aspirin 81 mg Enteric Coated Tablet PO SCH (08:24)
[2019-07-07] MEDS: Acetaminophen 325 MG TAB PO PRN (08:24)
[2019-07-07] MEDS: Tamsulosin HCl 0.4 MG CAP PO SCH (08:24)
[2019-07-07] MEDS: Digoxin 0.5 MG/2 ML AMP SLOW IVP SCH (08:26)
[2019-07-07] MEDS: Metoprolol Tartrate 25 MG TAB PO SCH ×2 (08:31→21:07)
--- NOTE | 2019-07-07 10:24 | ULT ---
BILATERAL LOWER EXTREMITY VENOUS DOPPLER ULTRASOUND: Date: 07/07/2019 COMPARISON: None. HISTORY: Bilateral lower extremity edema, chronic left-sided leg pain, assess for deep venous thrombosis. TECHNIQUE: Multiplanar Luna scale sonographic imaging of the venous structures of bilateral lower extremities ob tained with color flow and spectral analysis. FINDINGS: Bilateral common femoral veins, greater saphenous veins, profunda femoral veins, femoral veins, popli teal veins, and posterior tibial are patent. Normal blood flow, augmentation, and compression within the deep venous system bilaterally. No evidence for deep venous thrombosis on either side. IMPRESSION: No evidence for deep venous thrombosis of either lower extremity. POS: [facility]
[2019-07-07 10:34] LABS: Hemoglobin 10.4 g/dL (12.0-16.0)
--- NOTE | 2019-07-07 14:24 | PDOC.HOSPP ---
- Subjective Encounter Date: 07/07/19 Encounter Time: 14:20 Subjective: f/u for - Objective Vital Signs & Weight: Vital Signs (12 hours) Temp Pulse Pulse Ox 07/07/19 11:28 97.6 F 07/07/19 08:26 103 H 07/07/19 08:00 96 07/07/19 07:34 97 07/07/19 07:15 97.6 F 07/07/19 04:00 98.0 F Weight Admit Weight 423 lb 4.6 oz Weight 463 lb 9 oz Most Recent Monitor Data Heart Rate from ECG 94 NIBP 95/66 NIBP BP-Mean 75 Respiration from ECG 21 SpO2 96 I&O: 07/06/19 07/07/19 07/08/19 06:59 06:59 06:59 Intake Total 3209 2814.3 Output Total 2266 1395 Balance 943 1419.3 Result Diagrams: 07/07/19 10:20 07/07/19 04:10 Additional Labs: Accuchecks 07/07/19 07/06/19 07/06/19 10:53 20:25 17:24 POC Glucose 118 H 125 H 116 H 07/06/19 11:17 POC Glucose 196 H Laboratory Tests 07/04/19 07/04/19 07/04/19 03:30 12:09 16:06 WBC 22.2 H 19.2 H Hgb 8.3 L 8.1 L 07/04/19 18:02 WBC Hgb 8.1 L Radiology Reviewed by me: Yes (LE sono - neg for DVT) EKG Reviewed by me: Yes (Tele - A-fib in 's) Hospitalist ROS - Medication Medications: Active Medications Generic Name Dose Route Start Last Admin Trade Name Freq PRN Reason Stop Dose Admin Acetaminophen 650 mg 06/27/19 21:04 07/07/19 08:24 Tylenol PO 650 mg Q4H PRN Administration Headache/Fever/Mild Pain (1-3) Aspirin 81 mg 06/29/19 09:00 07/07/19 08:24 Ecotrin PO 81 mg QAM RAS Administration Cyclobenzaprine HCl 5 mg 07/01/19 11:14 07/01/19 11:23 Flexeril PO 5 mg TIDPRN PRN Administration Muscle Spasm Digoxin 0.25 mg 07/05/19 09:00 07/07/19 08:26 Lanoxin SLOW IVP 0.25 mg DAILY RAS Administration Hydrocortisone Sodium Succinate 50 mg 07/04/19 10:45 07/07/19 09:48 Solu-Cortef IVP 50 mg Q6H RAS Administration Norepinephrine Bitartrate 8 mg 250 mls @ 0 mls/hr 06/27/19 17:30 07/04/19 14: 05 / Dextrose/Water IVPB 250 mls INF PRN Administration TO MAINTAIN MAP > 65 Protocol As Directed Cefepime HCl 1 gm/ Sodium 100 mls @ 200 mls/hr 06/28/19 09:00 07/07/19 08:24 Chloride IVPB 100 mls Q12HR RAS Administration Metronidazole 500 mg/ Device 100 mls @ 100 mls/hr 06/30/19 22:00 07/07/19 14: 07 IVPB 100 mls Q8HR RAS Administration Pantoprazole Sodium 80 mg/ 100 mls @ 10 mls/hr 07/03/19 17:00 07/07/19 04:09 Sodium Chloride IVPB 100 mls INF RAS Administration Levothyroxine Sodium 50 mcg 07/07/19 06:00 07/07/19 05:39 Synthroid PO 50 mcg 0600 RAS Administration Magnesium Oxide 400 mg 06/27/19 17:30 06/29/19 05:55 Magnesium Oxide PO 400 mg BIDPRN PRN Administration FOR SERUM MAG 1.4 - 2.0 Metoprolol Tartrate 12.5 mg 07/07/19 09:00 07/07/19 08:31 Lopressor PO 12.5 mg BID RAS Administration Miconazole Nitrate 0 gm 06/30/19 21:00 07/06/19 20:29 Monistat 7 Vaginal 2% Cream TOP 1 applic HS RAS Administration Sodium Chloride 10 ml 06/27/19 21:00 07/07/19 08:25 Flush - Normal Saline IVF 10 ml Q12HR RAS Administration Tamsulosin HCl 0.4 mg 06/28/19 09:00 07/07/19 08:24 Flomax PO 0.4 mg DAILY RAS Administration - Exam General Appearance: NAD, awake alert General - other findings: smiling Eye: PERRL, anicteric sclera ENT: normocephalic atraumatic, no oropharyngeal lesions Neck: supple, symmetric, no JVD, no thyromegaly Heart: no gallops, normal peripheral pulses, irregular Heart - other findings: S1, S2 Respiratory: no ronchi, tachypneic Respiratory - other findings: diminished in bibasilar segments Gastrointestinal: soft, non-tender, non-distended, normal bowel sounds, no palpable masses Extremities: no cyanosis Extremities - other findings: 3+ edema BLE's Skin: normal turgor, no lesions Neurological: cranial nerve grossly intact, no new deficit Musculoskeletal: generalized weakness Psychiatric: normal affect, A&O x 3 Hosp A/P (1) Acute respiratory failure with hypoxia Code(s): J96.01 - ACUTE RESPIRATORY FAILURE WITH HYPOXIA Status: Acute Plan: Continue O2 supplementation, BiPAP PRN (2) Acute combined systolic and diastolic congestive heart failure Code(s): I50.41 - ACUTE COMBINED SYSTOLIC AND DIASTOLIC (CONGESTIVE) HRT FAIL Status: Acute Plan: Lasix 20mg IV x 1 dose today (3) Acute hyperkalemia Code(s): E87.5 - HYPERKALEMIA Status: Acute Plan: resolved (4) Septic shock Code(s): A41.9 - SEPSIS, UNSPECIFIED ORGANISM; R65.21 - SEVERE SEPSIS WITH SEPTIC SHOCK Status: Acute Plan: Resolved (5) Atrial fibrillation with RVR Code(s): I48.91 - UNSPECIFIED ATRIAL FIBRILLATION Status: Chronic Plan: Rate-controlled, continue Digoxin, no OAC due to GI bleed (6) Acute metabolic encephalopathy Code(s): G93.41 - METABOLIC ENCEPHALOPATHY Status: Acute Plan: Resolving, A X O x 3, supportive mgmt, decrease Hydrocortisone (7) Normocytic anemia Code(s): D64.9 - ANEMIA, UNSPECIFIED Status: Acute - Plan plan discussed w/ family, continue antibiotics, PT/OT, bilingual social worker, speech therapy, respiratory therapy, DVT proph w/SCDs Continue supportive mgmt Continue Digoxin 0.25mg IV daily Lasix 20mg IV daily Decrease Hydrocortisone 25mg IV q6h PT for mobilization s/p 1u PRBC's Advance diet Humidify O2 Updated status with daughter
[2019-07-07] MEDS ORDERED: Furosemide 20 MG/2 ML VIAL SLOW IVP SCH (14:30)
--- NOTE | 2019-07-07 16:32 | PRG ---
DATE OF SERVICE: 07/07/2019 SUBJECTIVE: Syeda Hugo says she is feeling better. OBJECTIVE: VITAL SIGNS: She is afebrile, heart rate is in the 90s, blood pressure 95/66, and respiratory rate is 20. LUNGS: Clear. HEART: Regular rhythm. ABDOMEN: Soft and nontender. EXTREMITIES: With stasis changes. LABORATORY STUDIES: Hemoglobin is 10.4, which is stable. Sodium 142, potassium 4.8, chloride 114, bicarb 25, BUN 48, and creatinine 0.76. IMPRESSION: 1. Obesity hypoventilation. Dopplers were ordered yesterday and show no growth. No evidence of DVT in her lower extremities. 2. Extreme deconditioning. 3. Life-threatening obesity. 4. Gastrointestinal and vaginal blood loss, clinically resolved. 5. Atrial fibrillation. PLAN: Continue supportive care, physical therapy, eventually placement. Job ID: [id number]
[2019-07-07] MEDS: Miconazole 2% Vaginal Cream 45 GM TUBE TOP SCH (21:06)
[2019-07-08] MEDS: Hydrocortisone Sod Succ/PF 100 mg/2 ml Vial IVP SCH ×3 (02:54→14:58)
[2019-07-08] MEDS: Pantoprazole 80 MG in Sodium Chloride 0.9% 100 ML IVPB SCH ×2 (04:07→20:15)
[2019-07-08] MEDS: metroNIDAZOLE 500 MG in Premix Bag 1 BAG IVPB SCH ×3 (05:59→21:33)
[2019-07-08] MEDS: Levothyroxine Sodium 50 MCG TAB PO SCH (05:59)
--- NOTE | 2019-07-08 07:13 | PRG ---
DATE OF SERVICE: 07/07/2019 SUBJECTIVE: This is a 69-year-old female, seen by GI Service because of drop in blood count and also history of melena. The patient was also on high dose Lovenox before this black tarry stools. The Lovenox was discontinued and she has had no bloody stool. Blood count has been pretty stable. She is tolerating a mechanical soft diet. No abdominal pain. No nausea. No vomiting. Blood count is stable. She has had no bloody stool for the last 48 hours. She did have some mild rectal bleeding yesterday and after that she passed small stool last night, which but dark. Her hemoglobin today is 10.4, hematocrit 31.8, which is better than yesterday. She offers no complaints. OBJECTIVE: GENERAL: She is obese, appears comfortable. VITAL SIGNS: Afebrile. Pulse is 75 and blood pressure 103/63. CARDIOVASCULAR SYSTEM: Within normal limits. LUNGS: Within normal limits. ABDOMEN: Soft. No organomegaly. No tenderness. No masses. RECOMMENDATIONS: 1. Follow H and H. 2. Continue pantoprazole. 3. We will sign off from today and if there are any new problems, please call us back. Job ID: [id number]
[2019-07-08] MEDS: Aspirin 81 mg Enteric Coated Tablet PO SCH (08:03)
[2019-07-08] MEDS: Metoprolol Tartrate 25 MG TAB PO SCH ×2 (08:04→20:16)
[2019-07-08] MEDS: Cefepime 1 GM in Sodium Chloride 0.9% 100 ML IVPB SCH (08:04)
[2019-07-08] MEDS: Digoxin 0.5 MG/2 ML AMP SLOW IVP SCH (08:07)
[2019-07-08] MEDS: Acetaminophen 325 MG TAB PO PRN (10:16)
--- NOTE | 2019-07-08 10:45 | PRG ---
DATE OF SERVICE: 07/08/2019 SUBJECTIVE: This morning, she looks better. She says she is depressed, multiple losses in family. OBJECTIVE: VITAL SIGNS: Temperature 97, pulse 103, blood pressure is improved to 170/92. CHEST: No wheezing or crackles. CARDIAC: Normal S1 and S2. ABDOMEN: Morbid obesity. ASSESSMENT: Sepsis syndrome, depression, abdominal pain, atrial fibrillation. PLAN: Pulmonary bills, continue stress dose steroids. Cortisol level was decreased. Pulmonary/Critical Care will follow up. She is encouraged to sit in the chair if possible. Job ID: [id number]
--- NOTE | 2019-07-08 12:03 | PDOC.CPN ---
- Subjective Date: 07/08/19 Time: 12:00 Interval history: She feels much better after blood transfusion. No angina. HR better rate controlled. - Review of Systems General: denies: fever/chills, weight/appetite/sleep changes, night sweats, fatigue Respiratory: denies: cough, congestion, shortness of breath, exercise intolerance Cardiovascular: denies: chest pain, palpitation, edema, paroxysmal nocturnal dyspnea, orthopnea Gastrointestinal: denies: nausea, vomiting, diarrhea, constipation, abd pain, GI bleeding Musculoskeletal: denies: pain, tenderness, stiffness, swelling, arthritis/ arthralgias Neurological: denies: numbness, syncope, seizure, weakness - Objective Allergies/Adverse Reactions: Allergies Allergy/AdvReac Type Severity Reaction Status Date / Time Penicillins Allergy Verified 06/13/19 13:56 [id number] Reductase Allergy Verified 06/13/19 13:56 Inhibitor tetanus toxoid, adsorbed Allergy Verified 06/13/19 13:56 Visit Medications: Current Medications Acetaminophen (Tylenol) 650 mg PO Q4H PRN PRN Reason: Headache/Fever/Mild Pain (1-3) Last Admin: 07/08/19 10:16 Dose: 650 mg Acetaminophen (Tylenol) 650 mg ME Q4H PRN PRN Reason: Headache/Fever/Mild Pain (1-3) Aspirin (Ecotrin) 81 mg PO QAM [facility] Last Admin: 07/08/19 08:03 Dose: 81 mg Dextrose/Water (Dextrose 50%) 25 gm SLOW IVP PRN PRN PRN Reason: Hypoglycemia Digoxin (Lanoxin) 0.25 mg SLOW IVP DAILY [facility] Last Admin: 07/08/19 08:07 Dose: 0.25 mg Glucagon (Glucagon) 1 mg IM PRN PRN PRN Reason: Hypoglycemia Hydrocortisone Sodium Succinate (Solu-Cortef) 25 mg IVP 0300,0900,1500,2100 [facility] Last Admin: 07/08/19 08:06 Dose: 25 mg Dextrose/Water (D5w) 1,000 mls @ 0 mls/hr IV .Q0M PRN PRN Reason: Hypoglycemia Norepinephrine Bitartrate 8 mg (/ Dextrose/Water) 250 mls @ 0 mls/hr IVPB INF PRN; Protocol PRN Reason: TO MAINTAIN MAP > 65 Last Admin: 07/04/19 14:05 Dose: 250 mls Potassium Chloride 40 meq/ (Sodium Chloride) 270 mls @ 135 mls/hr IVPB ASDIR PRN PRN Reason: FOR SERUM K+ 2.5 - 3.5 Potassium Chloride 40 meq/ (Device) 100 mls @ 50 mls/hr IVPB ASDIR PRN PRN Reason: FOR SERUM K+ 2.5 - 3.5 Magnesium Sulfate 1 gm/ Sodium (Chloride) 102 mls @ 102 mls/hr IV PRN PRN PRN Reason: MAG LEVEL 1.4 - 2.0 Magnesium Sulfate 2 gm/ Device 50 mls @ 50 mls/hr IVPB ASDIR PRN PRN Reason: MAGNESIUM < 1.4 Potassium Phosphate 9 mmol/ (Sodium Chloride) 103 mls @ 25.75 mls/hr IVPB ASDIR PRN PRN Reason: Phosphate 1.0-1.8 Potassium Phosphate 12 mmol/ (Sodium Chloride) 254 mls @ 63.5 mls/hr IV ASDIR PRN PRN Reason: Serum phosphate 0.5-0.9 Potassium Phosphate 15 mmol/ (Sodium Chloride) 255 mls @ 63.75 mls/hr IV ASDIR PRN PRN Reason: Serum Phos < 0.5 Cefepime HCl 1 gm/ Sodium (Chloride) 100 mls @ 200 mls/hr IVPB Q12HR [facility] Last Admin: 07/08/19 08:04 Dose: 100 mls Metronidazole 500 mg/ Device 100 mls @ 100 mls/hr IVPB Q8HR [facility] Last Admin: 07/08/19 05:59 Dose: 100 mls Pantoprazole Sodium 80 mg/ (Sodium Chloride) 100 mls @ 10 mls/hr IVPB INF [facility] Last Admin: 07/08/19 04:07 Dose: 100 mls Insulin Human Lispro (Humalog) 0 units SC .MILD SLIDING SCALE PRN PRN Reason: Mild Correctional Scale Levothyroxine Sodium (Synthroid) 50 mcg PO 0600 [facility] Last Admin: 07/08/19 05:59 Dose: 50 mcg Magnesium Oxide (Magnesium Oxide) 400 mg PO BIDPRN PRN PRN Reason: FOR SERUM MAG 1.4 - 2.0 Last Admin: 06/29/19 05:55 Dose: 400 mg Magnesium Oxide (Magnesium Oxide) 800 mg PO PRN PRN PRN Reason: FOR SERUM MAG < 1.4 Metoprolol Tartrate (Lopressor) 12.5 mg PO BID [facility] Last Admin: 07/08/19 08:04 Dose: 12.5 mg Miconazole Nitrate (Monistat 7 Vaginal 2% Cream) 0 gm TOP HS [facility] Last Admin: 07/07/19 21:06 Dose: 1 applic Miscellaneous Medication (Phos-Nak) 1 pkt PO TIDPRN PRN PRN Reason: FOR PHOS LEVEL 1.0 - 1.8 Miscellaneous Medication (Phos-Nak) 2 pkt PO TIDPRN PRN PRN Reason: FOR PHOS LEVEL 0.5 - 1.0 Ccu Electrolyte (Replacement Protocol) 0 each FS PRN PRN PRN Reason: FOR ELECTROLYTE REPLACEMENT Potassium Chloride (K-Dur) 40 meq PO ASDIR PRN PRN Reason: FOR SERUM K+ 2.5 - 3.5 Potassium Chloride (Klor-Con) 40 meq PER TUBE ASDIR PRN PRN Reason: FOR SERUM K+ 2.5-3.5 Sertraline HCl (Zoloft) 50 mg PO DAILY [facility] Last Admin: 07/08/19 09:31 Dose: 50 mg Sodium Chloride (Flush - Normal Saline) 10 ml IVF Q12HR [facility] Last Admin: 07/08/19 08:07 Dose: 10 ml Sodium Chloride (Flush - Normal Saline) 10 ml IVF PRN PRN PRN Reason: Saline Flush Vital Signs & Weight: Vital Signs Temp Pulse Pulse Ox 07/08/19 11:09 96.0 F L 07/08/19 08:07 103 H 07/08/19 07:26 95 07/08/19 07:07 96.5 F L 07/08/19 03:45 97.0 F L Admit Weight 423 lb 4.6 oz Weight 460 lb 11.2 oz - Physical Exam General: alert & oriented x3 HEENT: mucus membranes moist Neck: supple neck Cardiac: irregularly regular Lungs: clear to auscultation Neuro: grossly intact Abdomen: active bowel sounds Extremities: 1+ LE edema Skin: clear Musculoskeletal: no pain - Labs Result Diagrams: 07/07/19 10:20 07/07/19 04:10 - Telemetry Supraventricular conduction: atrial fibrillation - Assessment/Plan Assessment/Plan: 1. Afib RVR. Paroxysmal. Better rate control. 2. Vaginal bleeding 3. N/V, improved. 4. Hypotension 5. Morbid obesity 6. Severe deconditioning. 7. UGI bleeding. 8. Acute blood loss anemia PLAN: - Hgb improved after blood transfusion. - She feels better and better rate controlled after transfusion. - Continue digoxin only for rate control. - Will follow.
--- NOTE | 2019-07-08 15:18 | PDOC.HOSPP ---
- Subjective Encounter Date: 07/08/19 Encounter Time: 15:00 Subjective: f/u for CHF, anemia, A-fib RVR and deconditioning. Feels better overall after 2u PRBC's. - Objective Vital Signs & Weight: Vital Signs (12 hours) Temp Pulse Pulse Ox 07/08/19 15:03 96.4 F L 07/08/19 11:09 96.0 F L 07/08/19 08:07 103 H 07/08/19 07:26 95 07/08/19 07:07 96.5 F L 07/08/19 03:45 97.0 F L Weight Admit Weight 423 lb 4.6 oz Weight 460 lb 11.2 oz Most Recent Monitor Data Heart Rate from ECG 86 NIBP 104/50 NIBP BP-Mean 68 Respiration from ECG 15 SpO2 98 I&O: 07/07/19 07/08/19 07/09/19 06:59 06:59 06:59 Intake Total 2814.3 1237 Output Total 1395 1400 Balance 1419.3 -163 Result Diagrams: 07/07/19 10:20 07/07/19 04:10 Additional Labs: Accuchecks 07/08/19 07/07/19 10:19 20:26 POC Glucose 115 H 94 Laboratory Tests 07/04/19 07/04/19 07/04/19 03:30 12:09 16:06 WBC 22.2 H 19.2 H Hgb 8.3 L 8.1 L Digoxin 07/04/19 07/07/19 18:02 04:10 WBC Hgb 8.1 L Digoxin 1.15 EKG Reviewed by me: Yes (Tele - A-fib in 's) Hospitalist ROS - Medication Medications: Active Medications Generic Name Dose Route Start Last Admin Trade Name Freq PRN Reason Stop Dose Admin Acetaminophen 650 mg 06/27/19 21:04 07/08/19 10:16 Tylenol PO 650 mg Q4H PRN Administration Headache/Fever/Mild Pain (1-3) Aspirin 81 mg 06/29/19 09:00 07/08/19 08:03 Ecotrin PO 81 mg QAM RAS Administration Digoxin 0.25 mg 07/05/19 09:00 07/08/19 08:07 Lanoxin SLOW IVP 0.25 mg DAILY RAS Administration Hydrocortisone Sodium Succinate 25 mg 07/07/19 15:00 07/08/19 14:58 Solu-Cortef IVP 25 mg 0300,0900,1500,2100 RAS Administration Norepinephrine Bitartrate 8 mg 250 mls @ 0 mls/hr 06/27/19 17:30 07/04/19 14: 05 / Dextrose/Water IVPB 250 mls INF PRN Administration TO MAINTAIN MAP > 65 Protocol As Directed Cefepime HCl 1 gm/ Sodium 100 mls @ 200 mls/hr 06/28/19 09:00 07/08/19 08:04 Chloride IVPB 100 mls Q12HR RAS Administration Metronidazole 500 mg/ Device 100 mls @ 100 mls/hr 06/30/19 22:00 07/08/19 14: 57 IVPB 100 mls Q8HR RAS Administration Pantoprazole Sodium 80 mg/ 100 mls @ 10 mls/hr 07/03/19 17:00 07/08/19 04:07 Sodium Chloride IVPB 100 mls INF RAS Administration Levothyroxine Sodium 50 mcg 07/07/19 06:00 07/08/19 05:59 Synthroid PO 50 mcg 0600 RAS Administration Magnesium Oxide 400 mg 06/27/19 17:30 06/29/19 05:55 Magnesium Oxide PO 400 mg BIDPRN PRN Administration FOR SERUM MAG 1.4 - 2.0 Metoprolol Tartrate 12.5 mg 07/07/19 09:00 07/08/19 08:04 Lopressor PO 12.5 mg BID RAS Administration Miconazole Nitrate 0 gm 06/30/19 21:00 07/07/19 21:06 Monistat 7 Vaginal 2% Cream TOP 1 applic HS RAS Administration Sertraline HCl 50 mg 07/08/19 09:00 07/08/19 09:31 Zoloft PO 50 mg DAILY RAS Administration Sodium Chloride 10 ml 06/27/19 21:00 07/08/19 08:07 Flush - Normal Saline IVF 10 ml Q12HR RAS Administration - Exam General Appearance: NAD, awake alert Eye: PERRL, anicteric sclera ENT: normocephalic atraumatic, no oropharyngeal lesions Neck: supple, symmetric, no JVD, no thyromegaly Heart: no murmur, no gallops, no rubs, normal peripheral pulses, irregular Heart - other findings: S1, S2 Respiratory: no wheezes, tachypneic Respiratory - other findings: diminished in bases Gastrointestinal: soft, non-tender, non-distended, normal bowel sounds, no palpable masses Gastrointestinal - other findings: obese Extremities: 2+ LE edema Skin: normal turgor, no lesions Neurological: cranial nerve grossly intact, no new deficit Musculoskeletal: generalized weakness Psychiatric: normal affect, A&O x 3 Hosp A/P (1) Acute respiratory failure with hypoxia Code(s): J96.01 - ACUTE RESPIRATORY FAILURE WITH HYPOXIA Status: Acute Plan: Continue pulmonary supportive mgmt, O2 supplementation (2) Acute combined systolic and diastolic congestive heart failure Code(s): I50.41 - ACUTE COMBINED SYSTOLIC AND DIASTOLIC (CONGESTIVE) HRT FAIL Status: Acute Plan: continue Lasix 20mg IV daily, continue med mgmt, serial I/O's, Daily weight (3) Acute hyperkalemia Code(s): E87.5 - HYPERKALEMIA Status: Acute (4) Septic shock Code(s): A41.9 - SEPSIS, UNSPECIFIED ORGANISM; R65.21 - SEVERE SEPSIS WITH SEPTIC SHOCK Status: Acute (5) Atrial fibrillation with RVR Code(s): I48.91 - UNSPECIFIED ATRIAL FIBRILLATION Status: Chronic Plan: Rate-controlled, continue Metoprolol 12.5mg BID, Digoxin 0.125mg po daily (6) Acute metabolic encephalopathy Code(s): G93.41 - METABOLIC ENCEPHALOPATHY Status: Acute (7) Normocytic anemia Code(s): D64.9 - ANEMIA, UNSPECIFIED Status: Acute - Plan continue antibiotics, PT/OT, social science manager, speech therapy, respiratory therapy, DVT proph w/SCDs Continue supportive mgmt Change Digoxin 0.125mg po daily Lasix 20mg IV daily Decrease Hydrocortisone 25mg IV q12h PT for mobilization s/p 1u PRBC's Advance diet Humidify O2 AM lab: BMP, H/H
[2019-07-08] MEDS ORDERED: Furosemide 20 MG/2 ML VIAL SLOW IVP SCH (15:30)
[2019-07-08] MEDS: Miconazole 2% Vaginal Cream 45 GM TUBE TOP SCH (20:20)
[2019-07-09] MEDS: Hydrocortisone Sod Succ/PF 100 mg/2 ml Vial IVP SCH ×2 (03:06→13:59)
[2019-07-09 04:46] LABS: Hemoglobin 10.2 g/dL (12.0-16.0); Platelet Count 314 thou/uL (130-400)
[2019-07-09] MEDS: metroNIDAZOLE 500 MG in Premix Bag 1 BAG IVPB SCH ×3 (05:42→21:22)
[2019-07-09] MEDS: Levothyroxine Sodium 50 MCG TAB PO SCH (05:43)
[2019-07-09] MEDS: Pantoprazole 80 MG in Sodium Chloride 0.9% 100 ML IVPB SCH (07:09)
[2019-07-09] MEDS: Metoprolol Tartrate 25 MG TAB PO SCH ×2 (07:39→21:39)
[2019-07-09] MEDS: Digoxin 0.125 MG TAB PO SCH (07:39)
[2019-07-09] MEDS: Aspirin 81 mg Enteric Coated Tablet PO SCH (07:39)
[2019-07-09] MEDS: Furosemide 20 MG/2 ML VIAL SLOW IVP SCH (07:39)
--- NOTE | 2019-07-09 09:39 | PRG ---
DATE OF SERVICE: 07/09/2019 SUBJECTIVE: This morning, she is better. OBJECTIVE: VITAL SIGNS: Temperature 97, pulse 97, blood pressure CARDIAC: Normal S1, S2. No gallops. ABDOMEN: Massive. ASSESSMENT: 1. Hypertension. 2. Atrial fibrillation. 3. Sepsis, improved. 4. Morbid obesity. 5. Respiratory failure. PLAN: 1. PRN CPAP. 2. Continue supportive care, PT. 3. We will follow while in the MICU. Job ID: [id number]
--- NOTE | 2019-07-09 12:17 | PDOC.HOSPP ---
- Subjective Encounter Date: 07/09/19 Encounter Time: 12:05 Subjective: f/u for CHF, A-fib RVR and anemia s/p 2u PRBC's. Feels better overall just weak. Tolerating po intake. Remains on Protonix gtt. - Objective Vital Signs & Weight: Vital Signs (12 hours) Temp Pulse Pulse Ox 07/09/19 11:45 97.8 F 07/09/19 08:00 99 07/09/19 07:39 97 07/09/19 07:15 96.4 F L 07/09/19 02:31 98 07/09/19 00:14 96.8 F L Weight Admit Weight 423 lb 4.6 oz Weight 459 lb 2 oz Most Recent Monitor Data Heart Rate from ECG 97 NIBP 90/52 NIBP BP-Mean 64 Respiration from ECG 16 SpO2 98 I&O: 07/08/19 07/09/19 07/10/19 06:59 06:59 06:59 Intake Total 1237 2519 Output Total 1400 1400 Balance -163 1119 Result Diagrams: 07/09/19 04:25 07/07/19 04:10 Additional Labs: Accuchecks 07/09/19 07/08/19 07:22 20:22 POC Glucose 97 128 H Laboratory Tests 07/04/19 07/04/19 07/04/19 03:30 12:09 16:06 WBC 22.2 H 19.2 H Hgb 8.3 L 8.1 L Digoxin 07/04/19 07/07/19 18:02 04:10 WBC Hgb 8.1 L Digoxin 1.15 EKG Reviewed by me: Yes (Tele - A-fib in 's) Hospitalist ROS - Medication Medications: Active Medications Generic Name Dose Route Start Last Admin Trade Name Freq PRN Reason Stop Dose Admin Acetaminophen 650 mg 06/27/19 21:04 07/08/19 10:16 Tylenol PO 650 mg Q4H PRN Administration Headache/Fever/Mild Pain (1-3) Aspirin 81 mg 06/29/19 09:00 07/09/19 07:39 Ecotrin PO 81 mg QAM RAS Administration Digoxin 0.125 mg 07/09/19 09:00 07/09/19 07:39 Lanoxin PO 0.125 mg DAILY RAS Administration Furosemide 20 mg 07/09/19 09:00 07/09/19 07:39 Lasix SLOW IVP 20 mg DAILY RAS Administration Hydrocortisone Sodium Succinate 25 mg 07/09/19 03:00 07/09/19 03:06 Solu-Cortef IVP 25 mg 0300,1500 RAS Administration Norepinephrine Bitartrate 8 mg 250 mls @ 0 mls/hr 06/27/19 17:30 07/04/19 14: 05 / Dextrose/Water IVPB 250 mls INF PRN Administration TO MAINTAIN MAP > 65 Protocol As Directed Metronidazole 500 mg/ Device 100 mls @ 100 mls/hr 06/30/19 22:00 07/09/19 05: 42 IVPB 100 mls Q8HR RAS Administration Pantoprazole Sodium 80 mg/ 100 mls @ 10 mls/hr 07/03/19 17:00 07/09/19 07:09 Sodium Chloride IVPB 100 mls INF RAS Administration Levothyroxine Sodium 50 mcg 07/07/19 06:00 07/09/19 05:43 Synthroid PO 50 mcg 0600 RAS Administration Magnesium Oxide 400 mg 06/27/19 17:30 06/29/19 05:55 Magnesium Oxide PO 400 mg BIDPRN PRN Administration FOR SERUM MAG 1.4 - 2.0 Metoprolol Tartrate 12.5 mg 07/07/19 09:00 07/09/19 07:39 Lopressor PO 12.5 mg BID RAS Administration Miconazole Nitrate 0 gm 06/30/19 21:00 07/08/19 20:20 Monistat 7 Vaginal 2% Cream TOP 1 applic HS RAS Administration Sertraline HCl 50 mg 07/08/19 09:00 07/09/19 07:40 Zoloft PO 50 mg DAILY [facility] Administration Sodium Chloride 10 ml 06/27/19 21:00 07/09/19 07:41 Flush - Normal Saline IVF 10 ml Q12HR [facility] Administration - Exam General Appearance: NAD, awake alert Eye: PERRL, anicteric sclera ENT: normocephalic atraumatic, no oropharyngeal lesions Neck: supple, symmetric, no JVD, no thyromegaly, no lymphadenopathy Heart: no murmur, no gallops, no rubs, normal peripheral pulses, irregular Heart - other findings: S1, S2 Respiratory: tachypneic Respiratory - other findings: diminished in bibasilar segments Gastrointestinal: soft, non-tender, non-distended, normal bowel sounds Gastrointestinal - other findings: obese Extremities: no cyanosis, 2+ LE edema Skin: normal turgor Neurological: cranial nerve grossly intact, no new deficit Musculoskeletal: generalized weakness Psychiatric: normal affect, A&O x 3 Hosp A/P (1) Acute respiratory failure with hypoxia Code(s): J96.01 - ACUTE RESPIRATORY FAILURE WITH HYPOXIA Status: Acute Plan: Improved, continue O2 supplementation, PRN BiPAP (2) Acute combined systolic and diastolic congestive heart failure Code(s): I50.41 - ACUTE COMBINED SYSTOLIC AND DIASTOLIC (CONGESTIVE) HRT FAIL Status: Acute Plan: Continue Lasix IV daily, monitor I/O's, Daily weight (3) Acute hyperkalemia Code(s): E87.5 - HYPERKALEMIA Status: Acute (4) Septic shock Code(s): A41.9 - SEPSIS, UNSPECIFIED ORGANISM; R65.21 - SEVERE SEPSIS WITH SEPTIC SHOCK Status: Acute (5) Atrial fibrillation with RVR Code(s): I48.91 - UNSPECIFIED ATRIAL FIBRILLATION Status: Chronic Plan: Rate improved, continue Digoxin/Metoprolol, no anticoagulation due to GI bleed (6) Acute metabolic encephalopathy Code(s): G93.41 - METABOLIC ENCEPHALOPATHY Status: Acute (7) Normocytic anemia Code(s): D64.9 - ANEMIA, UNSPECIFIED Status: Acute Plan: Stable currently, change Protonix 40mg po daily - Plan continue antibiotics, PT/OT, social media project manager, speech therapy, respiratory therapy, DVT proph w/SCDs Consults: Palliative Care Continue supportive mgmt Change Digoxin 0.125mg po daily Lasix 20mg IV daily Decrease Hydrocortisone 25mg IV q12h Change Protonix 40mg po daily PT for mobilization Advance diet Humidify O2 Rehab evaluation pending AM lab: BMP, H/H
[2019-07-09] MEDS: Acetaminophen 325 MG TAB PO PRN ×2 (13:55→18:37)
--- NOTE | 2019-07-09 15:52 | PDOC.CPN ---
- Subjective Date: 07/09/19 Time: 15:51 Interval history: She is doing much better. No chest pain. Breathing at baseline. - Review of Systems General: denies: fever/chills, weight/appetite/sleep changes, night sweats, fatigue Respiratory: denies: cough, congestion, shortness of breath, exercise intolerance Cardiovascular: denies: chest pain, palpitation, edema, paroxysmal nocturnal dyspnea, orthopnea Gastrointestinal: denies: nausea, vomiting, diarrhea, constipation, abd pain, GI bleeding Musculoskeletal: denies: pain, tenderness, stiffness, swelling, arthritis/ arthralgias Neurological: denies: numbness, syncope, seizure, weakness - Objective Allergies/Adverse Reactions: Allergies Allergy/AdvReac Type Severity Reaction Status Date / Time Penicillins Allergy Verified 06/13/19 13:56 [id number]-Doy-[id number] Reductase Allergy Verified 06/13/19 13:56 Inhibitor tetanus toxoid, adsorbed Allergy Verified 06/13/19 13:56 Visit Medications: Current Medications Acetaminophen (Tylenol) 650 mg PO Q4H PRN PRN Reason: Headache/Fever/Mild Pain (1-3) Last Admin: 07/09/19 13:55 Dose: 650 mg Acetaminophen (Tylenol) 650 mg CA Q4H PRN PRN Reason: Headache/Fever/Mild Pain (1-3) Aspirin (Ecotrin) 81 mg PO QAM [facility] Last Admin: 07/09/19 07:39 Dose: 81 mg Dextrose/Water (Dextrose 50%) 25 gm SLOW IVP PRN PRN PRN Reason: Hypoglycemia Digoxin (Lanoxin) 0.125 mg PO DAILY [facility] Last Admin: 07/09/19 07:39 Dose: 0.125 mg Furosemide (Lasix) 20 mg SLOW IVP DAILY [facility] Last Admin: 07/09/19 07:39 Dose: 20 mg Glucagon (Glucagon) 1 mg IM PRN PRN PRN Reason: Hypoglycemia Hydrocortisone Sodium Succinate (Solu-Cortef) 25 mg IVP 0300,1500 [facility] Last Admin: 07/09/19 13:59 Dose: 25 mg Dextrose/Water (D5w) 1,000 mls @ 0 mls/hr IV .Q0M PRN PRN Reason: Hypoglycemia Norepinephrine Bitartrate 8 mg (/ Dextrose/Water) 250 mls @ 0 mls/hr IVPB INF PRN; Protocol PRN Reason: TO MAINTAIN MAP > 65 Last Admin: 07/04/19 14:05 Dose: 250 mls Potassium Chloride 40 meq/ (Sodium Chloride) 270 mls @ 135 mls/hr IVPB ASDIR PRN PRN Reason: FOR SERUM K+ 2.5 - 3.5 Potassium Chloride 40 meq/ (Device) 100 mls @ 50 mls/hr IVPB ASDIR PRN PRN Reason: FOR SERUM K+ 2.5 - 3.5 Magnesium Sulfate 1 gm/ Sodium (Chloride) 102 mls @ 102 mls/hr IV PRN PRN PRN Reason: MAG LEVEL 1.4 - 2.0 Magnesium Sulfate 2 gm/ Device 50 mls @ 50 mls/hr IVPB ASDIR PRN PRN Reason: MAGNESIUM < 1.4 Potassium Phosphate 9 mmol/ (Sodium Chloride) 103 mls @ 25.75 mls/hr IVPB ASDIR PRN PRN Reason: Phosphate 1.0-1.8 Potassium Phosphate 12 mmol/ (Sodium Chloride) 254 mls @ 63.5 mls/hr IV ASDIR PRN PRN Reason: Serum phosphate 0.5-0.9 Potassium Phosphate 15 mmol/ (Sodium Chloride) 255 mls @ 63.75 mls/hr IV ASDIR PRN PRN Reason: Serum Phos < 0.5 Metronidazole 500 mg/ Device 100 mls @ 100 mls/hr IVPB Q8HR [facility] Last Admin: 07/09/19 13:59 Dose: 100 mls Insulin Human Lispro (Humalog) 0 units SC .MILD SLIDING SCALE PRN PRN Reason: Mild Correctional Scale Levothyroxine Sodium (Synthroid) 50 mcg PO 0600 [facility] Last Admin: 07/09/19 05:43 Dose: 50 mcg Magnesium Oxide (Magnesium Oxide) 400 mg PO BIDPRN PRN PRN Reason: FOR SERUM MAG 1.4 - 2.0 Last Admin: 06/29/19 05:55 Dose: 400 mg Magnesium Oxide (Magnesium Oxide) 800 mg PO PRN PRN PRN Reason: FOR SERUM MAG < 1.4 Metoprolol Tartrate (Lopressor) 12.5 mg PO BID [facility] Last Admin: 07/09/19 07:39 Dose: 12.5 mg Miconazole Nitrate (Monistat 7 Vaginal 2% Cream) 0 gm TOP [facility] Last Admin: 07/08/19 20:20 Dose: 1 applic Miscellaneous Medication (Phos-Nak) 1 pkt PO TIDPRN PRN PRN Reason: FOR PHOS LEVEL 1.0 - 1.8 Miscellaneous Medication (Phos-Nak) 2 pkt PO TIDPRN PRN PRN Reason: FOR PHOS LEVEL 0.5 - 1.0 Ccu Electrolyte (Replacement Protocol) 0 each FS PRN PRN PRN Reason: FOR ELECTROLYTE REPLACEMENT Pantoprazole Sodium (Protonix) 40 mg PO DAILY [facility] Potassium Chloride (K-Dur) 40 meq PO ASDIR PRN PRN Reason: FOR SERUM K+ 2.5 - 3.5 Potassium Chloride (Klor-Con) 40 meq PER TUBE ASDIR PRN PRN Reason: FOR SERUM K+ 2.5-3.5 Sertraline HCl (Zoloft) 50 mg PO DAILY [facility] Last Admin: 07/09/19 07:40 Dose: 50 mg Sodium Chloride (Flush - Normal Saline) 10 ml IVF Q12HR [facility] Last Admin: 07/09/19 07:41 Dose: 10 ml Sodium Chloride (Flush - Normal Saline) 10 ml IVF PRN PRN PRN Reason: Saline Flush Vital Signs & Weight: Vital Signs Temp Pulse Pulse Ox 07/09/19 15:00 97.2 F L 07/09/19 11:45 97.8 F 07/09/19 08:00 99 07/09/19 07:39 97 07/09/19 07:15 96.4 F L Admit Weight 423 lb 4.6 oz Weight 459 lb 2 oz - Physical Exam General: alert & oriented x3 HEENT: mucus membranes moist Neck: supple neck Cardiac: regular rate and rhythm Lungs: clear to auscultation Neuro: grossly intact Abdomen: active bowel sounds Extremities: no edema Skin: clear Musculoskeletal: no pain - Labs Result Diagrams: 07/09/19 04:25 07/07/19 04:10 - Telemetry Supraventricular conduction: atrial fibrillation - Assessment/Plan Assessment/Plan: 1. Afib RVR. Paroxysmal. Rate control. 2. Vaginal bleeding 3. N/V, improved. 4. Hypotension 5. Morbid obesity 6. Severe deconditioning. 7. UGI bleeding. 8. Acute blood loss anemia PLAN: - Hgb stable - She feels better overall. - Continue digoxin only for rate control. - Will follow.
[2019-07-09] MEDS: Miconazole 2% Vaginal Cream 45 GM TUBE TOP SCH (21:39)
[2019-07-10] MEDS: Hydrocortisone Sod Succ/PF 100 mg/2 ml Vial IVP SCH ×2 (04:07→14:29)
[2019-07-10 04:36] LABS: Hemoglobin 10.3 g/dL (12.0-16.0); Platelet Count 302 thou/uL (130-400)
[2019-07-10 05:06] LABS: Anion Gap 7 mmol/L (10-20); BUN (Urea Nitrogen) 41 mg/dL (9.8-20.1); Calc. Creatinine Clearance 253 mL/min (70-130); Carbon Dioxide 28 mmol/L (23-31); Chloride 111 mmol/L (98-107); Estimated GFR-MDRD 82; Glucose 105 mg/dL (80-115); Potassium 4.7 mmol/L (3.5-5.1); Sodium 141 mmol/L (136-145)
[2019-07-10] MEDS: metroNIDAZOLE 500 MG in Premix Bag 1 BAG IVPB SCH ×3 (05:56→23:26)
[2019-07-10] MEDS: Levothyroxine Sodium 50 MCG TAB PO SCH (05:56)
[2019-07-10] MEDS: Metoprolol Tartrate 25 MG TAB PO SCH ×2 (09:26→20:59)
[2019-07-10] MEDS: Digoxin 0.125 MG TAB PO SCH (09:26)
[2019-07-10] MEDS: Aspirin 81 mg Enteric Coated Tablet PO SCH (09:27)
[2019-07-10] MEDS: Furosemide 20 MG/2 ML VIAL SLOW IVP SCH (09:27)
--- NOTE | 2019-07-10 09:50 | PRG ---
DATE OF SERVICE: 07/10/2019 SUBJECTIVE: Syeda Hugo is a 69-year-old morbidly obese female. This morning, she is better. OBJECTIVE: VITAL SIGNS: Temperature 97, pulse 80, blood pressure 96/60, respiratory rate 18. CHEST: No wheezing or crackles. CARDIAC: Normal S1 and S2. No gallops. ASSESSMENT: 1. Morbid obesity. 2. Respiratory failure. 3. Azotemia. 4. Atrial fibrillation. 5. Encephalopathy. PLAN: The patient is improved. She can probably be ready to be transferred to the medical floor. Job ID: [id number]
[2019-07-10] MEDS: Acetaminophen 325 MG TAB PO PRN ×2 (11:22→15:45)
--- NOTE | 2019-07-10 15:23 | PDOC.HOSPP ---
- Subjective Encounter Date: 07/10/19 Encounter Time: 15:00 Subjective: f/u for volume overload, hypotension, deconditioning and A-fib. States feeling tired, groggy. BP running in the 80's systolic. Receiving Metoprolol/Lasix. - Objective Vital Signs & Weight: Vital Signs (12 hours) Temp Pulse Pulse Pulse Pulse BP BP 07/10/19 15:06 96.1 F L 07/10/19 12:45 84 79 88 74/56 L 89/61 L 07/10/19 11:10 96.4 F L 07/10/19 09:26 97 07/10/19 08:00 07/10/19 07:06 96.0 F L 07/10/19 03:34 97.5 F L BP Pulse Ox Pulse Ox Pulse Ox Pulse Ox 07/10/19 15:06 07/10/19 12:45 112/90 96 95 95 07/10/19 11:10 07/10/19 09:26 07/10/19 08:00 98 07/10/19 07:06 07/10/19 03:34 Weight Admit Weight 423 lb 4.6 oz Weight 459 lb 9.6 oz Most Recent Monitor Data Heart Rate from ECG 80 NIBP 83/55 NIBP BP-Mean 64 Respiration from ECG 19 SpO2 92 I&O: 07/09/19 07/10/19 07/11/19 06:59 06:59 06:59 Intake Total 2519 1299 200 Output Total 1400 500 675 Balance 1119 799 475 Result Diagrams: 07/10/19 04:19 07/10/19 04:19 Additional Labs: Accuchecks 07/10/19 07/09/19 09:54 20:18 POC Glucose 91 104 Laboratory Tests 07/04/19 07/04/19 07/04/19 03:30 12:09 16:06 WBC 22.2 H 19.2 H Hgb 8.3 L 8.1 L Digoxin 07/04/19 07/07/19 18:02 04:10 WBC Hgb 8.1 L Digoxin 1.15 EKG Reviewed by me: Yes (Tele - A-fib in 90's) Hospitalist ROS - Medication Medications: Active Medications Generic Name Dose Route Start Last Admin Trade Name Freq PRN Reason Stop Dose Admin Acetaminophen 650 mg 06/27/19 21:04 07/10/19 11:22 Tylenol PO 650 mg Q4H PRN Administration Headache/Fever/Mild Pain (1-3) Aspirin 81 mg 06/29/19 09:00 07/10/19 09:27 Ecotrin PO 81 mg QAM [facility] Administration Digoxin 0.125 mg 07/09/19 09:00 07/10/19 09:26 Lanoxin PO 0.125 mg DAILY [facility] Administration Hydrocortisone Sodium Succinate 25 mg 07/09/19 03:00 07/10/19 14:29 Solu-Cortef IVP 25 mg 0300,1500 [facility] Administration Norepinephrine Bitartrate 8 mg 250 mls @ 0 mls/hr 06/27/19 17:30 07/04/19 14: 05 / Dextrose/Water IVPB 250 mls INF PRN Administration TO MAINTAIN MAP > 65 Protocol As Directed Metronidazole 500 mg/ Device 100 mls @ 100 mls/hr 06/30/19 22:00 07/10/19 14: 29 IVPB 100 mls Q8HR [facility] Administration Levothyroxine Sodium 50 mcg 07/07/19 06:00 07/10/19 05:56 Synthroid PO 50 mcg 0600 [facility] Administration Magnesium Oxide 400 mg 06/27/19 17:30 06/29/19 05:55 Magnesium Oxide PO 400 mg BIDPRN PRN Administration FOR SERUM MAG 1.4 - 2.0 Miconazole Nitrate 0 gm 06/30/19 21:00 07/09/19 21:39 Monistat 7 Vaginal 2% Cream TOP 1 applic HS [facility] Administration Pantoprazole Sodium 40 mg 07/10/19 09:00 07/10/19 09:27 Protonix PO 40 mg DAILY [facility] Administration Sodium Chloride 10 ml 06/27/19 21:00 07/10/19 09:25 Flush - Normal Saline IVF 10 ml Q12HR [facility] Administration - Exam General - other findings: groggy, responds to questions, moves all extremities Eye: PERRL, anicteric sclera ENT: normocephalic atraumatic, no oropharyngeal lesions Neck: supple, symmetric, no JVD, no thyromegaly Heart: no murmur, no gallops, no rubs, normal peripheral pulses, irregular Heart - other findings: S1, S2 Respiratory: no rales, rhonchi Respiratory - other findings: diminished in bases Gastrointestinal: soft, non-tender, non-distended, normal bowel sounds, no palpable masses Gastrointestinal - other findings: obese Extremities: no cyanosis, 2+ LE edema Skin: normal turgor Neurological: cranial nerve grossly intact, no new deficit Musculoskeletal: generalized weakness Psychiatric: A&O x 3, somnolent Hosp A/P (1) Acute respiratory failure with hypoxia Code(s): J96.01 - ACUTE RESPIRATORY FAILURE WITH HYPOXIA Status: Acute Plan: Titrating to O2 @ 1L /min NC, continue pulm support (2) Acute combined systolic and diastolic congestive heart failure Code(s): I50.41 - ACUTE COMBINED SYSTOLIC AND DIASTOLIC (CONGESTIVE) HRT FAIL Status: Acute Plan: Hold Lasix due to hypotension (3) Septic shock Code(s): A41.9 - SEPSIS, UNSPECIFIED ORGANISM; R65.21 - SEVERE SEPSIS WITH SEPTIC SHOCK Status: Acute (4) Atrial fibrillation with RVR Code(s): I48.91 - UNSPECIFIED ATRIAL FIBRILLATION Status: Chronic Plan: Rate-controlled, continue Digoxin 0.125mg daily, decrease Metoprolol 6.25mg BID (5) Acute metabolic encephalopathy Code(s): G93.41 - METABOLIC ENCEPHALOPATHY Status: Acute Plan: Likely due to hypotension, see above, decrease Zoloft 25mg daily (6) Normocytic anemia Code(s): D64.9 - ANEMIA, UNSPECIFIED Status: Acute Plan: Stable currently (7) Acute hyperkalemia Code(s): E87.5 - HYPERKALEMIA Status: Acute - Plan plan discussed w/ family, PT/OT, home health care social worker, respiratory therapy, DVT proph w/SCDs Continue supportive mgmt Change Digoxin 0.125mg po daily D/C Lasix Decrease Hydrocortisone 25mg IV q12h Change Protonix 40mg po daily Decrease Metoprolol 6.25mg BID Albumin infusion 25gm IV q6h PT for mobilization Advance diet Humidify O2 Rehab evaluation pending AM lab: BMP, H/H
[2019-07-10] MEDS: Albumin 25% 25 GM/100 ML BOT IVPB SCH ×2 (15:44→20:59)
[2019-07-10 16:30] VITALS: BP 98/77
--- NOTE | 2019-07-10 17:30 | PDOC.CPN ---
- Subjective Date: 07/10/19 Time: 17:27 Interval history: No new issues. Feeling much better. - Review of Systems General: reports: fatigue. denies: fever/chills, weight/appetite/sleep changes , night sweats Respiratory: reports: exercise intolerance. denies: cough, congestion, shortness of breath Cardiovascular: denies: chest pain, palpitation, edema, paroxysmal nocturnal dyspnea, orthopnea Gastrointestinal: denies: nausea, vomiting, diarrhea, constipation, abd pain, GI bleeding Musculoskeletal: denies: pain, tenderness, stiffness, swelling, arthritis/ arthralgias Neurological: denies: numbness, syncope, seizure, weakness - Objective Allergies/Adverse Reactions: Allergies Allergy/AdvReac Type Severity Reaction Status Date / Time Penicillins Allergy Verified 06/13/19 13:56 Hfemzuf-Iti-Qoy Reductase Allergy Verified 06/13/19 13:56 Inhibitor tetanus toxoid, adsorbed Allergy Verified 06/13/19 13:56 Visit Medications: Current Medications Acetaminophen (Tylenol) 650 mg PO Q4H PRN PRN Reason: Headache/Fever/Mild Pain (1-3) Last Admin: 07/10/19 15:45 Dose: 650 mg Acetaminophen (Tylenol) 650 mg [place] Q4H PRN PRN Reason: Headache/Fever/Mild Pain (1-3) Albumin Human (Albumin 25%) 25 gm IVPB Q6H [facility] Stop: 07/11/19 15:01 Last Admin: 07/10/19 15:44 Dose: 25 gm Aspirin (Ecotrin) 81 mg PO QAM [facility] Last Admin: 07/10/19 09:27 Dose: 81 mg Dextrose/Water (Dextrose 50%) 25 gm SLOW IVP PRN PRN PRN Reason: Hypoglycemia Digoxin (Lanoxin) 0.125 mg PO DAILY [facility] Last Admin: 07/10/19 09:26 Dose: 0.125 mg Glucagon (Glucagon) 1 mg IM PRN PRN PRN Reason: Hypoglycemia Hydrocortisone Sodium Succinate (Solu-Cortef) 25 mg IVP 0300,1500 [facility] Last Admin: 07/10/19 14:29 Dose: 25 mg Dextrose/Water (D5w) 1,000 mls @ 0 mls/hr IV .Q0M PRN PRN Reason: Hypoglycemia Norepinephrine Bitartrate 8 mg (/ Dextrose/Water) 250 mls @ 0 mls/hr IVPB INF PRN; Protocol PRN Reason: TO MAINTAIN MAP > 65 Last Admin: 07/04/19 14:05 Dose: 250 mls Potassium Chloride 40 meq/ (Sodium Chloride) 270 mls @ 135 mls/hr IVPB ASDIR PRN PRN Reason: FOR SERUM K+ 2.5 - 3.5 Potassium Chloride 40 meq/ (Device) 100 mls @ 50 mls/hr IVPB ASDIR PRN PRN Reason: FOR SERUM K+ 2.5 - 3.5 Magnesium Sulfate 1 gm/ Sodium (Chloride) 102 mls @ 102 mls/hr IV PRN PRN PRN Reason: MAG LEVEL 1.4 - 2.0 Magnesium Sulfate 2 gm/ Device 50 mls @ 50 mls/hr IVPB ASDIR PRN PRN Reason: MAGNESIUM < 1.4 Potassium Phosphate 9 mmol/ (Sodium Chloride) 103 mls @ 25.75 mls/hr IVPB ASDIR PRN PRN Reason: Phosphate 1.0-1.8 Potassium Phosphate 12 mmol/ (Sodium Chloride) 254 mls @ 63.5 mls/hr IV ASDIR PRN PRN Reason: Serum phosphate 0.5-0.9 Potassium Phosphate 15 mmol/ (Sodium Chloride) 255 mls @ 63.75 mls/hr IV ASDIR PRN PRN Reason: Serum Phos < 0.5 Metronidazole 500 mg/ Device 100 mls @ 100 mls/hr IVPB Q8HR [facility] Last Admin: 07/10/19 14:29 Dose: 100 mls Insulin Human Lispro (Humalog) 0 units SC .MILD SLIDING SCALE PRN PRN Reason: Mild Correctional Scale Levothyroxine Sodium (Synthroid) 50 mcg PO 0600 [facility] Last Admin: 07/10/19 05:56 Dose: 50 mcg Magnesium Oxide (Magnesium Oxide) 400 mg PO BIDPRN PRN PRN Reason: FOR SERUM MAG 1.4 - 2.0 Last Admin: 06/29/19 05:55 Dose: 400 mg Magnesium Oxide (Magnesium Oxide) 800 mg PO PRN PRN PRN Reason: FOR SERUM MAG < 1.4 Metoprolol Tartrate (Lopressor) 6.25 mg PO BID [facility] Miconazole Nitrate (Monistat 7 Vaginal 2% Cream) 0 gm TOP [facility] Last Admin: 07/09/19 21:39 Dose: 1 applic Miscellaneous Medication (Phos-Nak) 1 pkt PO TIDPRN PRN PRN Reason: FOR PHOS LEVEL 1.0 - 1.8 Miscellaneous Medication (Phos-Nak) 2 pkt PO TIDPRN PRN PRN Reason: FOR PHOS LEVEL 0.5 - 1.0 Ccu Electrolyte (Replacement Protocol) 0 each FS PRN PRN PRN Reason: FOR ELECTROLYTE REPLACEMENT Pantoprazole Sodium (Protonix) 40 mg PO DAILY [facility] Last Admin: 07/10/19 09:27 Dose: 40 mg Potassium Chloride (K-Dur) 40 meq PO ASDIR PRN PRN Reason: FOR SERUM K+ 2.5 - 3.5 Potassium Chloride (Klor-Con) 40 meq PER TUBE ASDIR PRN PRN Reason: FOR SERUM K+ 2.5-3.5 Sertraline HCl (Zoloft) 25 mg PO DAILY [facility] Sodium Chloride (Flush - Normal Saline) 10 ml IVF Q12HR [facility] Last Admin: 07/10/19 09:25 Dose: 10 ml Sodium Chloride (Flush - Normal Saline) 10 ml IVF PRN PRN PRN Reason: Saline Flush Vital Signs & Weight: Vital Signs Temp Pulse Pulse Pulse Pulse BP BP 07/10/19 15:15 83 85 98/77 82/60 L 07/10/19 15:06 96.1 F L 07/10/19 12:45 84 79 88 74/56 L 89/61 L 07/10/19 11:10 96.4 F L 07/10/19 09:26 97 07/10/19 08:00 07/10/19 07:06 96.0 F L BP Pulse Ox Pulse Ox Pulse Ox Pulse Ox 07/10/19 15:15 90 L 93 L 07/10/19 15:06 07/10/19 12:45 112/90 96 95 95 07/10/19 11:10 07/10/19 09:26 07/10/19 08:00 98 07/10/19 07:06 Admit Weight 423 lb 4.6 oz Weight 459 lb 9.6 oz - Physical Exam General: alert & oriented x3 HEENT: mucus membranes moist Neck: supple neck Cardiac: irregularly regular Lungs: normal breath sounds Neuro: grossly intact Abdomen: active bowel sounds Extremities: no edema Skin: clear Musculoskeletal: no pain - Labs Result Diagrams: 07/10/19 04:19 07/10/19 04:19 - Telemetry Supraventricular conduction: atrial fibrillation - Assessment/Plan Assessment/Plan: 1. Afib RVR. Paroxysmal. Rate control. 2. Vaginal bleeding 3. N/V, improved. 4. Hypotension 5. Morbid obesity 6. Severe deconditioning. 7. UGI bleeding. 8. Acute blood loss anemia 9. Morbid obesity. PLAN: - Hgb stable - Continues to feels better overall. - Continue digoxin only for rate control. - CV stable. - May transfer to telemetry floor.
[2019-07-10] MEDS: Miconazole 2% Vaginal Cream 45 GM TUBE TOP SCH (21:00)
[2019-07-11] MEDS: Albumin 25% 25 GM/100 ML BOT IVPB SCH ×3 (03:19→14:52)
[2019-07-11] MEDS: Hydrocortisone Sod Succ/PF 100 mg/2 ml Vial IVP SCH ×2 (03:20→14:49)
[2019-07-11] MEDS: metroNIDAZOLE 500 MG in Premix Bag 1 BAG IVPB SCH ×3 (05:47→21:52)
[2019-07-11] MEDS: Levothyroxine Sodium 50 MCG TAB PO SCH (05:47)
--- NOTE | 2019-07-11 07:40 | EKG ---
Test Reason : Blood Pressure : / mmHG Vent. Rate : 103 BPM Atrial Rate : 078 BPM P-R Int : 000 ms QRS Dur : 146 ms QT Int : 346 ms P-R-T Axes : 000 -60 225 degrees QTc Int : 453 ms Poor data quality, interpretation may be adversely affected Atrial fibrillation with rapid ventricular response with premature ventricular or aberrantly conducte d complexes Left axis deviation Non-specific intra-ventricular conduction block Inferior infarct (cited on or before 27-JUN-2019) Anterolateral infarct (cited on or before 27-JUN-2019) Abnormal ECG Confirmed by GILMA BOUDREAUX MD ([id number]) on 07/11/2019 7:39:51 AM Referred By: JENNIFER Confirmed By:GILMA BOUDREAUX MD
--- NOTE | 2019-07-11 10:01 | PRG ---
DATE OF SERVICE: 07/11/2019 SUBJECTIVE: She is still sleeping on nocturnal BiPAP at nighttime, doing good. She is still deconditioned. OBJECTIVE: VITAL SIGNS: Temperature 96, sats are _93%on room air, blood pressure 96/48, still on stress dose of steroids. CHEST: Decreased breath sounds, no wheezing. CARDIAC: Normal S1, S2. No gallops. ABDOMEN: No masses. ASSESSMENT: 1. Hypertension. 2. Supraventricular tachycardia. 3. Morbid obesity. 4. Severe deconditioning. 5. Sepsis syndrome. PLAN: I would discontinue the hydrocortisone. Continue PT, eventually placement. Job ID: [id number] [facility]
[2019-07-11] MEDS: Aspirin 81 mg Enteric Coated Tablet PO SCH (10:12)
[2019-07-11] MEDS: Acetaminophen 325 MG TAB PO PRN (10:12)
[2019-07-11] MEDS: Metoprolol Tartrate 25 MG TAB PO SCH ×2 (10:13→21:01)
[2019-07-11] MEDS: Digoxin 0.125 MG TAB PO SCH (10:13)
[2019-07-11 10:56] VITALS: BMI 73.8
--- NOTE | 2019-07-11 14:32 | PDOC.HOSPP ---
- Subjective Encounter Date: 07/11/19 Encounter Time: 14:25 Subjective: f/u for resp failure/deconditioining/hypotension and CHF with EF 40-50%. Currently on BiPAP NIMV. Feels fatigued overall. BP trend slightly improved and elevated. - Objective Vital Signs & Weight: Vital Signs (12 hours) Temp Pulse Pulse Ox 07/11/19 11:46 96.3 F L 07/11/19 10:13 70 07/11/19 07:17 96 07/11/19 07:05 96.1 F L 07/11/19 04:19 98.3 F Weight Admit Weight 423 lb 4.6 oz Weight 457 lb 8 oz Most Recent Monitor Data Heart Rate from ECG 97 NIBP 99/61 NIBP BP-Mean 73 Respiration from ECG 20 SpO2 90 I&O: 07/10/19 07/11/19 07/12/19 06:59 06:59 06:59 Intake Total 1299 1400 Output Total 500 1875 Balance 799 -475 Result Diagrams: 07/10/19 04:19 07/10/19 04:19 Additional Labs: Accuchecks 07/11/19 07/10/19 10:21 20:26 POC Glucose 102 109 Laboratory Tests 07/04/19 07/04/19 07/04/19 03:30 12:09 16:06 WBC 22.2 H 19.2 H Hgb 8.3 L 8.1 L Digoxin 07/04/19 07/07/19 18:02 04:10 WBC Hgb 8.1 L Digoxin 1.15 EKG Reviewed by me: Yes (Tele - A-fib in 's) Hospitalist ROS - Medication Medications: Active Medications Generic Name Dose Route Start Last Admin Trade Name Freq PRN Reason Stop Dose Admin Acetaminophen 650 mg 06/27/19 21:04 07/11/19 10:12 Tylenol PO 650 mg Q4H PRN Administration Headache/Fever/Mild Pain (1-3) Albumin Human 25 gm 07/10/19 15:00 07/11/19 10:12 Albumin 25% IVPB 07/11/19 15:01 25 gm Q6H [facility] Administration Aspirin 81 mg 06/29/19 09:00 07/11/19 10:12 Ecotrin PO 81 mg QAM [facility] Administration Digoxin 0.125 mg 07/09/19 09:00 07/11/19 10:13 Lanoxin PO Not Given DAILY [facility] Hydrocortisone Sodium Succinate 25 mg 07/09/19 03:00 07/11/19 03:20 Solu-Cortef IVP 25 mg 0300,1500 [facility] Administration Levothyroxine Sodium 50 mcg 07/07/19 06:00 07/11/19 05:47 Synthroid PO 50 mcg 0600 [facility] Administration Magnesium Oxide 400 mg 06/27/19 17:30 06/29/19 05:55 Magnesium Oxide PO 400 mg BIDPRN PRN Administration FOR SERUM MAG 1.4 - 2.0 Metoprolol Tartrate 6.25 mg 07/10/19 21:00 07/11/19 10:13 Lopressor PO Not Given BID RAS Miconazole Nitrate 0 gm 06/30/19 21:00 07/10/19 21:00 Monistat 7 Vaginal 2% Cream TOP 1 applic HS [facility] Administration Pantoprazole Sodium 40 mg 07/10/19 09:00 07/11/19 10:12 Protonix PO 40 mg DAILY [facility] Administration Sertraline HCl 25 mg 07/11/19 09:00 07/11/19 10:12 Zoloft PO 25 mg DAILY [facility] Administration Sodium Chloride 10 ml 06/27/19 21:00 07/11/19 10:15 Flush - Normal Saline IVF 10 ml Q12HR [facility] Administration - Exam General Appearance: NAD Eye: PERRL, anicteric sclera ENT: normocephalic atraumatic, no oropharyngeal lesions Neck: supple, symmetric, no JVD, no thyromegaly Heart: no murmur, no gallops, no rubs, normal peripheral pulses, irregular Heart - other findings: S1, S2 Respiratory: no wheezes, no ronchi, tachypneic Respiratory - other findings: diminished in bases Gastrointestinal: soft, non-tender, non-distended, normal bowel sounds, no palpable masses Gastrointestinal - other findings: obese Extremities: no cyanosis, 2+ LE edema Skin: normal turgor Neurological: cranial nerve grossly intact, no new deficit Musculoskeletal: generalized weakness Psychiatric: normal affect, A&O x 3 Hosp A/P (1) Acute respiratory failure with hypoxia Code(s): J96.01 - ACUTE RESPIRATORY FAILURE WITH HYPOXIA Status: Acute Plan: Intermittent and nocturnal BiPAP NIMV, O2 supplementation with NC for maintenance (2) Acute combined systolic and diastolic congestive heart failure Code(s): I50.41 - ACUTE COMBINED SYSTOLIC AND DIASTOLIC (CONGESTIVE) HRT FAIL Status: Acute Plan: EF 40-50%, continue medical mgmt, hypotension precluding further cardiac medical mgmt (3) Septic shock Code(s): A41.9 - SEPSIS, UNSPECIFIED ORGANISM; R65.21 - SEVERE SEPSIS WITH SEPTIC SHOCK Status: Acute (4) Atrial fibrillation with RVR Code(s): I48.91 - UNSPECIFIED ATRIAL FIBRILLATION Status: Chronic Plan: Continue Digoxin for rate control, no anticoagulation due to GI bleed (5) Acute metabolic encephalopathy Code(s): G93.41 - METABOLIC ENCEPHALOPATHY Status: Acute (6) Normocytic anemia Code(s): D64.9 - ANEMIA, UNSPECIFIED Status: Acute (7) Acute hyperkalemia Code(s): E87.5 - HYPERKALEMIA Status: Acute - Plan PT/OT, social economist, respiratory therapy, DVT proph w/SCDs Continue supportive mgmt Change Digoxin 0.125mg po daily, hold x 24h D/C Lasix Decrease Hydrocortisone 25mg IV q12h Change Protonix 40mg po daily Decrease Metoprolol 6.25mg BID, hold x 24h Albumin infusion 25gm IV q6h Trial Midodrine 5mg TID for hypotension PT for mobilization Advance diet Humidify O2 Rehab evaluation pending AM lab: BMP, H/H
[2019-07-11] MEDS: Midodrine HCl 5 MG TAB PO SCH ×2 (15:16→21:00)
--- NOTE | 2019-07-11 17:39 | PDOC.CPN ---
- Subjective Date: 07/11/19 Time: 17:38 Interval history: No new issues. No angina. Afib rate controlled. - Objective Allergies/Adverse Reactions: Allergies Allergy/AdvReac Type Severity Reaction Status Date / Time Penicillins Allergy Verified 06/13/19 13:56 Qagnlwz-Axm-Eio Reductase Allergy Verified 06/13/19 13:56 Inhibitor tetanus toxoid, adsorbed Allergy Verified 06/13/19 13:56 Visit Medications: Current Medications Acetaminophen (Tylenol) 650 mg PO Q4H PRN PRN Reason: Headache/Fever/Mild Pain (1-3) Last Admin: 07/11/19 10:12 Dose: 650 mg Acetaminophen (Tylenol) 650 mg SC Q4H PRN PRN Reason: Headache/Fever/Mild Pain (1-3) Aspirin (Ecotrin) 81 mg PO QAM [facility] Last Admin: 07/11/19 10:12 Dose: 81 mg Dextrose/Water (Dextrose 50%) 25 gm SLOW IVP PRN PRN PRN Reason: Hypoglycemia Digoxin (Lanoxin) 0.125 mg PO DAILY [facility] Last Admin: 07/11/19 10:13 Dose: Not Given Glucagon (Glucagon) 1 mg IM PRN PRN PRN Reason: Hypoglycemia Hydrocortisone Sodium Succinate (Solu-Cortef) 25 mg IVP 0300,1500 [facility] Last Admin: 07/11/19 14:49 Dose: 25 mg Dextrose/Water (D5w) 1,000 mls @ 0 mls/hr IV .Q0M PRN PRN Reason: Hypoglycemia Potassium Chloride 40 meq/ (Sodium Chloride) 270 mls @ 135 mls/hr IVPB ASDIR PRN PRN Reason: FOR SERUM K+ 2.5 - 3.5 Potassium Chloride 40 meq/ (Device) 100 mls @ 50 mls/hr IVPB ASDIR PRN PRN Reason: FOR SERUM K+ 2.5 - 3.5 Magnesium Sulfate 1 gm/ Sodium (Chloride) 102 mls @ 102 mls/hr IV PRN PRN PRN Reason: MAG LEVEL 1.4 - 2.0 Magnesium Sulfate 2 gm/ Device 50 mls @ 50 mls/hr IVPB ASDIR PRN PRN Reason: MAGNESIUM < 1.4 Potassium Phosphate 9 mmol/ (Sodium Chloride) 103 mls @ 25.75 mls/hr IVPB ASDIR PRN PRN Reason: Phosphate 1.0-1.8 Potassium Phosphate 12 mmol/ (Sodium Chloride) 254 mls @ 63.5 mls/hr IV ASDIR PRN PRN Reason: Serum phosphate 0.5-0.9 Potassium Phosphate 15 mmol/ (Sodium Chloride) 255 mls @ 63.75 mls/hr IV ASDIR PRN PRN Reason: Serum Phos < 0.5 Metronidazole 500 mg/ Device 100 mls @ 100 mls/hr IVPB Q8HR [facility] Stop: 07/12/19 14:01 Last Admin: 07/11/19 14:52 Dose: 100 mls Insulin Human Lispro (Humalog) 0 units SC .MILD SLIDING SCALE PRN PRN Reason: Mild Correctional Scale Levothyroxine Sodium (Synthroid) 50 mcg PO 0600 [facility] Last Admin: 07/11/19 05:47 Dose: 50 mcg Magnesium Oxide (Magnesium Oxide) 400 mg PO BIDPRN PRN PRN Reason: FOR SERUM MAG 1.4 - 2.0 Last Admin: 06/29/19 05:55 Dose: 400 mg Magnesium Oxide (Magnesium Oxide) 800 mg PO PRN PRN PRN Reason: FOR SERUM MAG < 1.4 Metoprolol Tartrate (Lopressor) 6.25 mg PO BID [facility] Last Admin: 07/11/19 10:13 Dose: Not Given Miconazole Nitrate (Monistat 7 Vaginal 2% Cream) 0 gm TOP HS [facility] Last Admin: 07/10/19 21:00 Dose: 1 applic Midodrine (Proamatine) 5 mg PO TID [facility] Last Admin: 07/11/19 15:16 Dose: 5 mg Miscellaneous Medication (Phos-Nak) 1 pkt PO TIDPRN PRN PRN Reason: FOR PHOS LEVEL 1.0 - 1.8 Miscellaneous Medication (Phos-Nak) 2 pkt PO TIDPRN PRN PRN Reason: FOR PHOS LEVEL 0.5 - 1.0 Ccu Electrolyte (Replacement Protocol) 0 each FS PRN PRN PRN Reason: FOR ELECTROLYTE REPLACEMENT Pantoprazole Sodium (Protonix) 40 mg PO DAILY [facility] Last Admin: 07/11/19 10:12 Dose: 40 mg Potassium Chloride (K-Dur) 40 meq PO ASDIR PRN PRN Reason: FOR SERUM K+ 2.5 - 3.5 Potassium Chloride (Klor-Con) 40 meq PER TUBE ASDIR PRN PRN Reason: FOR SERUM K+ 2.5-3.5 Sertraline HCl (Zoloft) 25 mg PO DAILY [facility] Last Admin: 07/11/19 10:12 Dose: 25 mg Sodium Chloride (Flush - Normal Saline) 10 ml IVF Q12HR [facility] Last Admin: 07/11/19 10:15 Dose: 10 ml Sodium Chloride (Flush - Normal Saline) 10 ml IVF PRN PRN PRN Reason: Saline Flush Vital Signs & Weight: Vital Signs Temp Pulse Pulse Ox 07/11/19 15:03 96.9 F L 07/11/19 11:46 96.3 F L 07/11/19 10:13 70 07/11/19 07:17 96 07/11/19 07:05 96.1 F L Admit Weight 423 lb 4.6 oz Weight 457 lb 8 oz - Physical Exam General: alert & oriented x3 HEENT: mucus membranes moist Neck: supple neck Cardiac: irregularly regular Lungs: clear to auscultation Neuro: grossly intact Abdomen: active bowel sounds Extremities: no edema Skin: clear Musculoskeletal: no pain - Labs Result Diagrams: 07/10/19 04:19 07/10/19 04:19 - Telemetry Supraventricular conduction: atrial fibrillation - Assessment/Plan Assessment/Plan: 1. Afib RVR. Paroxysmal. Rate control. 2. Vaginal bleeding 3. N/V, improved. 4. Hypotension 5. Morbid obesity 6. Severe deconditioning. 7. UGI bleeding. 8. Acute blood loss anemia 9. Morbid obesity. PLAN: - Hgb stable - Continue digoxin only for rate control. - CV stable. - Placement.
[2019-07-11] MEDS: Miconazole 2% Vaginal Cream 45 GM TUBE TOP SCH (21:00)
[2019-07-12] MEDS: Hydrocortisone Sod Succ/PF 100 mg/2 ml Vial IVP SCH (03:17)
[2019-07-12 03:54] LABS: Hemoglobin 8.8 g/dL (12.0-16.0); Platelet Count 301 thou/uL (130-400)
[2019-07-12 04:13] LABS: Anion Gap 11 mmol/L (10-20); BUN (Urea Nitrogen) 33 mg/dL (9.8-20.1); Calc. Creatinine Clearance 288 mL/min (70-130); Calcium 10.5 mg/dL (7.8-10.44); Carbon Dioxide 28 mmol/L (23-31); Chloride 110 mmol/L (98-107); Estimated GFR-MDRD Greater than 90; Glucose 72 mg/dL (80-115); Potassium 4.7 mmol/L (3.5-5.1); Sodium 144 mmol/L (136-145)
[2019-07-12] MEDS: metroNIDAZOLE 500 MG in Premix Bag 1 BAG IVPB SCH ×2 (05:45→14:22)
[2019-07-12] MEDS: Levothyroxine Sodium 50 MCG TAB PO SCH (05:46)
[2019-07-12] MEDS: Digoxin 0.125 MG TAB PO SCH (08:20)
[2019-07-12] MEDS: Aspirin 81 mg Enteric Coated Tablet PO SCH (08:20)
[2019-07-12] MEDS: Metoprolol Tartrate 25 MG TAB PO SCH (08:21)
[2019-07-12] MEDS: Midodrine HCl 5 MG TAB PO SCH ×2 (08:22→14:23)
--- NOTE | 2019-07-12 09:22 | PRG ---
DATE OF SERVICE: 07/12/2019 SUBJECTIVE: Remains in the MICU with no respiratory distress. She is tolerating the BiPAP well. OBJECTIVE: VITAL SIGNS: Temperature 97, pulse 96, blood pressure 109/63. CHEST: No wheezing or crackles. CARDIAC: Normal S1, S2. ABDOMEN: No masses. LABORATORY DATA: Lytes normal. H and H are stable. ASSESSMENT: 1. Abdominal sepsis. 2. Morbid obesity. 3. Sleep apnea. 4. Severe deconditioning. PLAN: I would discontinue steroids. Continue BiPAP as tolerated, eventually placement. Job ID: [id number]
--- NOTE | 2019-07-12 12:11 | DIS ---
DATE OF ADMISSION: 06/27/2019 DATE OF DISCHARGE: 07/12/2019 DISCHARGE DIAGNOSES: 1. Acute hypoxic respiratory failure, multifactorial including obesity, hypoventilation syndrome, and obstructive sleep apnea. 2. 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 3. Atrial fibrillation with rapid ventricular response, rate controlled currently. 4. Acute metabolic encephalopathy, multifactorial, improved. 5. Acute blood loss anemia secondary to gastrointestinal bleed, status post 2 units of packed red blood cells. 6. Septic shock secondary to suspected diverticulitis, resolved. 7. Intertriginous candidiasis. 8. Morbid obesity. 9. Nonambulatory status. 10. Acute hyperkalemia, resolved. CONSULTATIONS: 1. Dr. Lira with Pulmonology Critical Care Service. 2. Dr. Yuen with GI Service. 3. Dr. Crump and Dr. Souza with Cardiology Service. PERTINENT LABORATORY AND X-RAY FINDINGS: Potassium ranged between 4.7 to 6.9. Lactic acid level ranged between 1.8 to 5.6. CRP 17.27. BNP ranged between 173 to 1094. Procalcitonin level 4.17. TSH 5.65. CBC showed a white blood cell count ranged between 9.8 to 22.2, hemoglobin ranged between 7.6 to 17.3. Blood cultures x2 dated 06/27/2019 showed no growth at 5 days. Urine culture dated 06/27/2019 showed no growth at 48 hours. Influenza A and B antigen negative, 06/27/2019. Respiratory viral culture dated 06/29/2019 showed normal respiratory julia. Portable chest x-ray dated 06/27/2019 showed cardiomegaly with left basilar fluid and parenchymal opacity. Abdominal radiographs dated 06/27/2019 showed poor bowel prep with technically limited study. Renal ultrasound dated 06/27/2019, showed no acute process. 2D transthoracic echocardiogram dated 06/28/2019, showed ejection fraction of 40% to 50%. Indeterminate diastolic dysfunction due to atrial fibrillation. Mild biatrial enlargement. Moderate mitral regurgitation. Moderate tricuspid regurgitation. Small pericardial effusion without tamponade. Pelvic ultrasound dated 07/01/2019 showed nondiagnostic exam. Bilateral lower extremity venous Doppler study dated 07/07/2019, showed no evidence for DVT. HOSPITAL COURSE: The patient was initially admitted after presenting with nausea, vomiting, and hematuria. The patient underwent extensive evaluation in the context of a history of diverticulitis, atrial fibrillation, as well as perforated diverticulitis in 2012. The patient had complained of dysuria and abdominal pain. Initial workup in the emergency room revealed atrial fibrillation with rapid ventricular response with associated hyperkalemia and hypotension. The patient was diagnosed initially with septic shock and treated with norepinephrine as well as given broad-spectrum IV antibiotic therapy. The patient was also initiated on amiodarone infusion and evaluated for potential intraabdominal infectious process. Concern for potential recurrence of diverticulitis or perforated diverticulum was entertained. However, this was never diagnosed definitively. The patient continued on broad-spectrum antibiotic coverage with vancomycin and Zosyn and treated with fluid resuscitation. The patient was evaluated by the General Surgery Service after concern for an acute intraabdominal process without specific indication for an acute surgical intervention. Recommendations were for continued antibiotic therapy and fluid resuscitation in correction of electrolyte abnormalities. The patient was also evaluated by the GI Service after the patient was noted with blood in the stool. The patient's overall hemoglobin trend showed decreasing values, at which point, the patient was placed on proton pump inhibitor. The patient received 2 units of packed red blood cells and was held on all NSAIDs and anticoagulation. The patient initially had been placed on subcutaneous Lovenox due to the atrial fibrillation, which was discontinued. Hemoglobin trend had stabilized with discontinuation of anticoagulation with recommendations to not resume anticoagulation due to concern for recurrence. The patient did require a pulmonary supportive management including BiPAP noninvasive mechanical ventilation due to obesity, hypoventilation syndrome, and likely obstructive sleep apnea. The patient mainly uses nocturnal BiPAP, but occasionally needed the system for sleeping during the daytime. The patient eventually transitioned out of the Critical Care Unit to the Intermediate Care Unit after stabilization of blood pressure and the sepsis. No specific dominant organism was ever identified and the patient was transitioned off broad-spectrum IV antibiotic coverage. The patient also continued titration of her cardiac medication due to the atrial fibrillation with decreasing beta blockade therapy and initiation of digoxin for rate control measures. The patient was noted with hypotension with adjustment to her medication regimen with the addition of midodrine to mitigate hypotension. This was successful and the patient's overall systolic maintained greater than 100. Due to the patient's overall comorbid status, deconditioning and nonambulatory state, the patient was deemed an appropriate candidate for inpatient rehabilitation. The patient had been approved for inpatient rehabilitation transfer; however, decided to return home with Home Health Services. She was not interested in pursuing further inpatient rehabilitation. I have examined the patient at the time of discharge and discussed followup instructions. The patient verbalized understanding and agreement. DISCHARGE MEDICATIONS: 1. Enteric-coated aspirin 81 mg p.o. daily. 2. [place]-3 fatty acids 3 tabs p.o. daily. 3. Levothyroxine 50 mcg p.o. daily. 4. Multivitamin 1 tablet p.o. daily. 5. Coenzyme Q10 of 200 mg p.o. q.a.m. 6. Digoxin 0.125 mg p.o. daily. 7. Lopressor 6.25 mg p.o. b.i.d. 8. Midodrine 5 mg p.o. t.i.d. 9. Protonix 40 mg p.o. daily. 10. Zoloft 25 mg p.o. daily. 11. Miconazole 2% vaginal cream one application topically at bedtime. FOLLOWUP: The patient to follow up with Dr. Sam Fierro within 7 days of discharge. The patient will follow up with Dr. Lira with Pulmonology Service to pursue outpatient sleep study. CONDITION ON DISCHARGE: Guarded. ACTIVITY: Ad-haile. Bedbound status currently. DIET: Regular. CODE STATUS: Full. DISPOSITION: To home with [facility] including physical, occupational therapy, and nursing care on 07/12/2019. TIME SPENT: Total time preparing and coordinating discharge is 40 minutes. Job ID: [id number]
--- NOTE | 2019-07-12 14:11 | PDOC.CPN ---
- Subjective Date: 07/12/19 Time: 14:09 Interval history: No new issues. No chest pain. - Review of Systems General: reports: fatigue. denies: fever/chills, weight/appetite/sleep changes , night sweats Respiratory: denies: cough, congestion, shortness of breath, exercise intolerance Cardiovascular: denies: chest pain, palpitation, edema, paroxysmal nocturnal dyspnea, orthopnea Gastrointestinal: denies: nausea, vomiting, diarrhea, constipation, abd pain, GI bleeding Musculoskeletal: denies: pain, tenderness, stiffness, swelling, arthritis/ arthralgias Neurological: denies: numbness, syncope, seizure, weakness - Objective Allergies/Adverse Reactions: Allergies Allergy/AdvReac Type Severity Reaction Status Date / Time Penicillins Allergy Verified 06/13/19 13:56 Wvdmgxz-Joi-Yls Reductase Allergy Verified 06/13/19 13:56 Inhibitor tetanus toxoid, adsorbed Allergy Verified 06/13/19 13:56 Visit Medications: Current Medications Acetaminophen (Tylenol) 650 mg PO Q4H PRN PRN Reason: Headache/Fever/Mild Pain (1-3) Last Admin: 07/11/19 10:12 Dose: 650 mg Acetaminophen (Tylenol) 650 mg MD Q4H PRN PRN Reason: Headache/Fever/Mild Pain (1-3) Aspirin (Ecotrin) 81 mg PO QAM [facility] Last Admin: 07/12/19 08:20 Dose: 81 mg Dextrose/Water (Dextrose 50%) 25 gm SLOW IVP PRN PRN PRN Reason: Hypoglycemia Digoxin (Lanoxin) 0.125 mg PO DAILY [facility] Last Admin: 07/12/19 08:20 Dose: 0.125 mg Glucagon (Glucagon) 1 mg IM PRN PRN PRN Reason: Hypoglycemia Dextrose/Water (D5w) 1,000 mls @ 0 mls/hr IV .Q0M PRN PRN Reason: Hypoglycemia Potassium Chloride 40 meq/ (Sodium Chloride) 270 mls @ 135 mls/hr IVPB ASDIR PRN PRN Reason: FOR SERUM K+ 2.5 - 3.5 Potassium Chloride 40 meq/ (Device) 100 mls @ 50 mls/hr IVPB ASDIR PRN PRN Reason: FOR SERUM K+ 2.5 - 3.5 Magnesium Sulfate 1 gm/ Sodium (Chloride) 102 mls @ 102 mls/hr IV PRN PRN PRN Reason: MAG LEVEL 1.4 - 2.0 Magnesium Sulfate 2 gm/ Device 50 mls @ 50 mls/hr IVPB ASDIR PRN PRN Reason: MAGNESIUM < 1.4 Potassium Phosphate 9 mmol/ (Sodium Chloride) 103 mls @ 25.75 mls/hr IVPB ASDIR PRN PRN Reason: Phosphate 1.0-1.8 Potassium Phosphate 12 mmol/ (Sodium Chloride) 254 mls @ 63.5 mls/hr IV ASDIR PRN PRN Reason: Serum phosphate 0.5-0.9 Potassium Phosphate 15 mmol/ (Sodium Chloride) 255 mls @ 63.75 mls/hr IV ASDIR PRN PRN Reason: Serum Phos < 0.5 Insulin Human Lispro (Humalog) 0 units SC .MILD SLIDING SCALE PRN PRN Reason: Mild Correctional Scale Levothyroxine Sodium (Synthroid) 50 mcg PO 0600 [facility] Last Admin: 07/12/19 05:46 Dose: 50 mcg Magnesium Oxide (Magnesium Oxide) 400 mg PO BIDPRN PRN PRN Reason: FOR SERUM MAG 1.4 - 2.0 Last Admin: 06/29/19 05:55 Dose: 400 mg Magnesium Oxide (Magnesium Oxide) 800 mg PO PRN PRN PRN Reason: FOR SERUM MAG < 1.4 Metoprolol Tartrate (Lopressor) 6.25 mg PO BID [facility] Last Admin: 07/12/19 08:21 Dose: 6.25 mg Miconazole Nitrate (Monistat 7 Vaginal 2% Cream) 0 gm TOP HS [facility] Last Admin: 07/11/19 21:00 Dose: 1 applic Midodrine (Proamatine) 5 mg PO TID [facility] Last Admin: 07/12/19 08:22 Dose: 5 mg Miscellaneous Medication (Phos-Nak) 1 pkt PO TIDPRN PRN PRN Reason: FOR PHOS LEVEL 1.0 - 1.8 Miscellaneous Medication (Phos-Nak) 2 pkt PO TIDPRN PRN PRN Reason: FOR PHOS LEVEL 0.5 - 1.0 Ccu Electrolyte (Replacement Protocol) 0 each FS PRN PRN PRN Reason: FOR ELECTROLYTE REPLACEMENT Pantoprazole Sodium (Protonix) 40 mg PO DAILY [facility] Last Admin: 07/12/19 08:22 Dose: 40 mg Potassium Chloride (K-Dur) 40 meq PO ASDIR PRN PRN Reason: FOR SERUM K+ 2.5 - 3.5 Potassium Chloride (Klor-Con) 40 meq PER TUBE ASDIR PRN PRN Reason: FOR SERUM K+ 2.5-3.5 Sertraline HCl (Zoloft) 25 mg PO DAILY [facility] Last Admin: 07/12/19 08:22 Dose: 25 mg Sodium Chloride (Flush - Normal Saline) 10 ml IVF Q12HR [facility] Last Admin: 07/12/19 08:23 Dose: 10 ml Sodium Chloride (Flush - Normal Saline) 10 ml IVF PRN PRN PRN Reason: Saline Flush Last Admin: 07/12/19 05:46 Dose: 10 ml Vital Signs & Weight: Vital Signs Temp Pulse Pulse Ox 07/12/19 11:05 97.1 F L 07/12/19 08:20 96 07/12/19 08:00 96 07/12/19 07:28 91 L 07/12/19 07:23 97.5 F L 07/12/19 04:00 98.4 F Admit Weight 423 lb 4.6 oz Weight 455 lb 1.6 oz - Physical Exam General: alert & oriented x3 HEENT: mucus membranes moist Neck: supple neck Cardiac: irregularly regular Lungs: clear to auscultation Neuro: grossly intact Abdomen: active bowel sounds Extremities: 1+ LE edema Skin: clear Musculoskeletal: no pain - Labs Result Diagrams: 07/12/19 03:30 07/12/19 03:30 - Telemetry Supraventricular conduction: atrial fibrillation - Assessment/Plan Assessment/Plan: 1. Afib RVR. Paroxysmal. Rate control. 2. Vaginal bleeding 3. N/V, improved. 4. Hypotension 5. Morbid obesity 6. Severe deconditioning. 7. UGI bleeding. 8. Acute blood loss anemia 9. Morbid obesity. PLAN: - Hgb stable - Continue digoxin only for rate control. - CV stable. - Placement. 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
[2019-07-12 15:29] VITALS: TEMP 96.2
== END 2019-07-12 19:34 | disposition home health service (06) | DRG 871 ==
LOC: ERS 08:47 → CCU 15:00 → IMCU/EMU 07-06 12:30
PROVIDERS: ADMIT Internal Medicine; ATTEND Internal Medicine
PROC: 3E043XZ Introduction of Vasopressor into Central Vein, Percutaneous Approach (ICD-10-PCS; principal; 2019-06-27)
PROC: 02HV33Z Insertion of Infusion Device into Superior Vena Cava, Percutaneous Approach (ICD-10-PCS; 2019-06-27)
PROC: 5A09357 Assistance with Respiratory Ventilation, Less than 24 Consecutive Hours, Continuous Positive Airway Pressure (ICD-10-PCS; 2019-07-04)
PROC: 30233N1 Transfusion of Nonautologous Red Blood Cells into Peripheral Vein, Percutaneous Approach (ICD-10-PCS; 2019-07-05)
DX: A41.9 Sepsis, unspecified organism (principal); R65.21 Severe sepsis with septic shock; I50.41 Acute combined systolic (congestive) and diastolic (congestive) heart failure; J96.01 Acute respiratory failure with hypoxia; G93.41 Metabolic encephalopathy; R57.1 Hypovolemic shock; Z68.45 Body mass index [BMI] 70 or greater, adult; E87.2 Acidosis; E87.1 Hypo-osmolality and hyponatremia; I48.19 Other persistent atrial fibrillation; I42.9 Cardiomyopathy, unspecified; E66.2 Morbid (severe) obesity with alveolar hypoventilation; K57.32 Diverticulitis of large intestine without perforation or abscess without bleeding; N39.0 Urinary tract infection, site not specified; D62 Acute posthemorrhagic anemia; N17.9 Acute kidney failure, unspecified; I47.1 Supraventricular tachycardia; K92.1 Melena; E03.9 Hypothyroidism, unspecified; M19.90 Unspecified osteoarthritis, unspecified site; E87.5 Hyperkalemia; B37.2 Candidiasis of skin and nail; K59.09 Other constipation; E11.9 Type 2 diabetes mellitus without complications; I27.20 Pulmonary hypertension, unspecified; L81.6 Other disorders of diminished melanin formation; D25.9 Leiomyoma of uterus, unspecified; I11.0 Hypertensive heart disease with heart failure; F32.9 Major depressive disorder, single episode, unspecified; N93.9 Abnormal uterine and vaginal bleeding, unspecified; Z90.49 Acquired absence of other specified parts of digestive tract; Z79.899 Other long term (current) drug therapy; Z79.82 Long term (current) use of aspirin; Z79.890 Hormone replacement therapy; Z79.01 Long term (current) use of anticoagulants; Z88.0 Allergy status to penicillin; Z88.8 Allergy status to other drugs, medicaments and biological substances; Z74.01 Bed confinement status; Z88.7 Allergy status to serum and vaccine
CPT/HCPCS: 36415; 36416; 36430; 36556; 51701; 71045; 74018; 76770; 76857; 80048; 80053; 80162; 80202; 80400; 81003; 81015; 82533; 82565; 82805; 83605; 83690; 83735; 83880; 84145; 84443; 84520; 85014; 85018; 85025; 85049; 85652; 86140; 86850; 86900; 86901; 87040; 87070; 87086; 87205; 87804; 93005; 93010; 93306; 93798; 93970; 94640; 94660; 96361; 96365; 96366; 96367; 96368; 96375; 96376; 99292; A4353; C9113; J0282; J0692; J0696; J0834; J1160; J1650; J1720; J1815; J1940; J2405; J2543; J3370; J3490; J7042; J7050; J7070; J7611; P9016; P9045; P9047